=== PATIENT | female | born 1955 | race Caucasian/White ===

== ENCOUNTER → 2017-04-18 12:45 | Outpatient (CLI) | payer MEDICAID, SELFPAY ==
--- NOTE | 2017-04-18 13:00 | SP.MBSS_ITS ---
PRIMARY / SECONDARY DIAGNOSIS: dysphagia (R13.10) REFERRING PHYSICIAN: Dr. Camilla Singh MD CURRENT DIET: regular textures, thin liquids DENTITION: WFL MENTAL STATUS: WNL RESPIRATORY STATUS: O2 via room air PREVIOUS MODIFIED BARIUM SWALLOW STUDY: none REASON FOR REFERRAL: Patient is a 61 year old female referred for a modified barium swallow (MBS) study to objectively assess the Patients oropharyngeal swallow function under fluoroscopy secondary to reported persistent throat clearing with suspected association with PO intake tolerance. Patient denies uptake in throat clearing during PO intake, denies any recent history of pneumonia, denies any overt signs and symptoms of aspiration. MEDICAL HISTORY: Diabetes mellitus, hypertension, hypercholesteremia, prior hysterectomy. STUDY FINDINGS: Patient participated in a Modified Barium Swallow (MBS) study on 04/18/2017. Dr. Hanson was the radiologist present for this evaluation. This study was recorded in the lateral view and images were sent to PACs for storage. The following consistencies were presented to this patient for analysis of oropharyngeal swallow function: thin liquids, pudding, and a regular textured, Hiral Doone cookie. Results of the MBS are as follows: PENETRATION / ASPIRATION SCALE (APONTE): 1 = does not enter airway 2 = enters airway/above vocal folds/ejected 3 = enters airway/above vocal folds/not ejected 4 = enters airway/contacts vocal folds/ejected 5 = enters airway/contacts vocal folds/not ejected 6 = enters airway/below vocal folds/ejected 7 = enters airway/below vocal folds/not ejected despite effort 8 = enters airway/below vocal folds/no effort PENETRATION / ASPIRATION SCALE (SCORE): Thin liquids via cup (single sip): 1 Thin liquids via cup (single sip): 1 Thin liquids via cup (single sip): 1 Thin liquids via cup (sequential swallows): 1 Thin liquids via straw (single sip): 1 Thin liquids via straw (sequential swallows): 1 Pudding via spoon: 1 Regular textured cookie: 1 Thin liquids via straw (sequential swallows): 1 IMPRESSION: DIAGNOSIS: swallow function grossly within functional limits ORAL PHASE CHARACTERIZED BY: LABIAL SEAL: no labial escape TONGUE CONTROL DURING BOLUS MANIPULATION: cohesive bolus between tongue to palatal seal BOLUS PREPARATION / MASTICATION: timely and efficient chewing and mashing BOLUS TRANSPORT / LINGUAL MOTION: brisk tongue motion ORAL RESIDUE: intermittent trace residue lining oral structures PHARYNGEAL PHASE CHARACTERIZED BY: INITIATION OF PHARYNGEAL SWALLOW: bolus head in valleculae at first hyoid excursion SOFT PALATE ELEVATION: no bolus between soft palate and pharyngeal wall LARYNGEAL ELEVATION: complete superior movement of thyroid cartilage with complete approximation of arytenoids cartilage to epiglottic petiole ANTERIOR HYOID EXCURSION: complete anterior movement EPIGLOTTIC MOVEMENT: complete epiglottic inversion LARYNGEAL VESTIBULE CLOSURE AT HEIGHT OF SWALLOW: complete laryngeal vestibule closure with no air/contrast in laryngeal vestibule PHARYNGEAL STRIPPING WAVE: pharyngeal stripping wave present / complete PHARYNGOESOPHAGEAL SEGMENT OPENING: complete distension and complete duration with no obstruction of flow TONGUE BASE RETRACTION: no contrast between tongue base and posterior pharyngeal wall PHARYNGEAL RESIDUE: intermittent trace residue within or on pharyngeal structures ESOPHAGEAL PHASE CHARACTERIZED BY: ESOPHAGEAL BOLUS CLEARANCE IN THE UPRIGHT POSITION: complete clearance; esophageal coating DIET TEXTURE RECOMMENDATIONS: Will recommend a regular textured, thin liquid diet. INTERPRETATION OF RESULTS: The Patient presents with mastication and deglutition abilities found to be grossly within normal limits. No aspiration appreciated throughout consistencies trialed. RECOMMENDATIONS: Provided brief overview of signs and symptoms of aspiration, with recommendations for the Patient to further discuss symptoms with PCP. No further skilled speech-language services warranted at this time targeting dysphagia. ADDITIONAL COMMENTS/RECOMMENDATIONS: Results and recommendations were discussed with the Patient immediately following MBS completion, with the Patient verbalizing understanding and agreement with all recommendations and education provided. IMAGE COUNT: [id number] G-CODES: SWALLOWING [id number] Current Status: SWALLOWING G8997 Goal Status: SWALLOWING G8998 Discharge Status:
--- NOTE | 2017-04-18 13:15 | RAD_ITS ---
STUDY: SWALLOWING STUDY REASON FOR EXAM: Female, 61 years old. Dysphagia. TECHNIQUE: The examination was performed with Speech Pathology in attendance. Under fluoroscopic observation, the patient ingested thin barium, thick barium, barium pudding, and barium coated cracker. FLUOROSCOPY TIME: 0:57 minutes/seconds. 837 spot images were obtained. RADIOLOGIST INVOLVEMENT: Radiologist was present and providing direct supervision. COMPARISON: None. FINDINGS: The following was observed during swallowing of the various mixtures of barium: Thin Barium: There was no evidence of aspiration or laryngeal penetration. Barium Pudding: There was no evidence of aspiration or laryngeal penetration. Barium Coated Cracker: There was no evidence of aspiration or laryngeal penetration. RAD/Swallowing Function w/Video IMPRESSION: Normal tailored barium swallow study. No evidence of increased risk for aspiration. The swallow study findings were discussed with the patient by the speech pathologist at the conclusion of the examination. Please see speech pathology report for more information and recommendations. Electronically Signed: Rigoberto Hanson MD at 14:30 EST Tel [phone], Service support ,
== END ==
PROVIDERS: Family Provider Family Medicine Geriatric Medicine; PCP Family Medicine Geriatric Medicine; Visit Provider Family Medicine Geriatric Medicine
DX: R13.10 Dysphagia, unspecified (principal)
CPT/HCPCS: 74230; 92611

== ENCOUNTER → 2017-08-16 08:52 | Outpatient (CLI) | payer MEDICAID, SELFPAY ==
[2017-08-16 17:45] LABS: Absolute Lymphocyte Count 2.46 X10^3/ul (0.83-4.51); Absolute Neutrophil Count 3.4 X10^3/uL (2.0-7.7); Basophil# 0.02 X10^3/uL; Basophil% 0.3 % (0-1); Eosinophil# 0.17 X10^3/uL; Eosinophils% 2.6 % (0-5); Hematocrit 41.6 % (37-47); Hemoglobin 13.9 g/dl (12.0-15.0); Lymphocyte # 2.46 X10^3/ul (4.0); Lymphocyte % 37.4 % (19-41); Mean Corp Hgb Conc 33.4 g/gl (32-36); Mean Corpuscular Hgb 31.7 pg (27.0-32.0); Mean Corpuscular Volume 94.8 fL (81-99); Mean Platelet Vol. 10.1 fl (6.2-12.0); Monocyte# 0.53 X10^3/uL; Monocyte% 8.1 % (0-10); Neutrophil # 3.39 X10^3/uL (2.7-7.7); Neutrophil % 51.4 % (47-70); Platelet Count 239 K/mm3 (150-450); RBC Distribution Width CV 12.6 % (11.6-14.6); RBC Distribution Width SD 42.4 fl (35.1-43.9); Red Blood Count 4.39 M/mm3 (4.2-5.4); White Blood Count 6.6 K/mm3 (4.4-11.0)
[2017-08-16 17:51] LABS: POSITIVE COUNT NO; POSITIVE DIFFERENTIAL NO; POSITIVE MORPHOLOGY NO
[2017-08-16 18:05] LABS: ALB/GLOB Ratio 0.9 RATIO (0.9-2.4); AST(SGOT) 17 U/L (15-37); Alanine Aminotransfer ALT/SGPT 29 U/L (13-56); Albumin, Serum 3.6 g/dL (3.2-5.0); Alkaline Phosphatase 81 U/L (45-117); Anion Gap 7 (5-15); BUN 17 mg/dL (7-18); BUN/Creat Ratio 18.4 RATIO (10-20); Calcium,Total 8.6 mg/dL (8.5-10.1); Chloride 107 mmol/L (98-107); Creatinine, Serum 0.92 mg/dL (0.55-1.02); EST Glomerular Filtration Rate 65 mL/min (>60); Est Glom Filt Rate - Afr Amer 79 mL/min (>60); Globulin 3.8 g/dL (2.2-4.2); Glucose 131 mg/dL (74-106); Potassium 4.2 mmol/L (3.5-5.1); Protein, Total 7.4 g/dL (6.4-8.2); Sodium Level 141 mmol/L (136-145); Thyroid Stim Hormone (TSH) 2.34 uIU/mL (0.358-3.74)
[2017-08-17 08:43] LABS: Vitamin D,25 Hydroxy 80.2 ng/mL (29.95-100.01)
[2017-08-18 08:01] LABS: Hep C Antibodies 0.1 s/co ratio (0.0-0.9)
== END ==
PROVIDERS: Family Provider Family Medicine Geriatric Medicine; PCP Family Medicine Geriatric Medicine; Visit Provider Family Medicine Geriatric Medicine
DX: E11.9 Type 2 diabetes mellitus without complications (principal); E55.9 Vitamin D deficiency, unspecified; I10 Essential (primary) hypertension; Z13.89 Encounter for screening for other disorder
CPT/HCPCS: 36415; 80053; 82306; 84443; 85025; 86803

== ENCOUNTER → 2018-02-14 13:40 | Outpatient (CLI) | payer MEDICAID, SELFPAY ==
[2018-02-14 17:07] LABS: Absolute Lymphocyte Count 2.55 X10^3/ul (0.83-4.51); Absolute Neutrophil Count 3.4 X10^3/uL (2.0-7.7); Basophil# 0.02 X10^3/uL; Basophil% 0.3 % (0-1); Hemoglobin 12.9 g/dl (12.0-15.0); Lymphocyte # 2.55 X10^3/ul (4.0); Lymphocyte % 38.3 % (19-41); Mean Corp Hgb Conc 33.1 g/gl (32-36); Mean Corpuscular Hgb 30.9 pg (27.0-32.0); Mean Corpuscular Volume 93.5 fL (81-99); Mean Platelet Vol. 10.2 fl (6.2-12.0); Monocyte# 0.46 X10^3/uL; Monocyte% 6.9 % (0-10); Neutrophil # 3.41 X10^3/uL (2.7-7.7); Neutrophil % 51.3 % (47-70); Platelet Count 225 K/mm3 (150-450); RBC Distribution Width CV 12.2 % (11.6-14.6); RBC Distribution Width SD 40.9 fl (35.1-43.9); Red Blood Count 4.17 M/mm3 (4.2-5.4); White Blood Count 6.7 K/mm3 (4.4-11.0)
[2018-02-14 17:20] LABS: Vitamin D,25 Hydroxy 51.6 ng/mL (29.95-100.01)
[2018-02-14 17:21] LABS: POSITIVE COUNT NO; POSITIVE DIFFERENTIAL NO; POSITIVE MORPHOLOGY NO
[2018-02-14 17:35] LABS: ALB/GLOB Ratio 1.1 RATIO (0.9-2.4); AST(SGOT) 18 U/L (15-37); Alanine Aminotransfer ALT/SGPT 30 U/L (13-56); Albumin, Serum 3.7 g/dL (3.2-5.0); Alkaline Phosphatase 96 U/L (45-117); Anion Gap 10 (5-15); BUN 19 mg/dL (7-18); Calcium,Total 8.8 mg/dL (8.5-10.1); Chloride 108 mmol/L (98-107); EST Glomerular Filtration Rate 67 mL/min (>60); Est Glom Filt Rate - Afr Amer 81 mL/min (>60); Globulin 3.4 g/dL (2.2-4.2); Glucose 168 mg/dL (74-106); Potassium 3.9 mmol/L (3.5-5.1); Protein, Total 7.1 g/dL (6.4-8.2); Sodium Level 140 mmol/L (136-145); Thyroid Stim Hormone (TSH) 2.19 uIU/mL (0.358-3.74)
== END ==
PROVIDERS: Family Provider Family Medicine Geriatric Medicine; PCP Family Medicine Geriatric Medicine; Visit Provider Family Medicine Geriatric Medicine
DX: E11.9 Type 2 diabetes mellitus without complications (principal); E55.9 Vitamin D deficiency, unspecified; I10 Essential (primary) hypertension
CPT/HCPCS: 36415; 80053; 82306; 84443; 85025

== ENCOUNTER → 2018-03-05 15:31 | Outpatient (CLI) | payer MEDICAID, SELFPAY ==
--- NOTE | 2018-03-05 15:37 | RAD_ITS ---
STUDY: X-RAY - LUMBAR SPINE REASON FOR EXAM: Female, 62 years old. Back pain TECHNIQUE: 3 view(s) of the lumbar spine were obtained. COMPARISON: None FINDINGS: Normal lumbar lordosis. There is no substantial scoliosis. There is a normal alignment of the vertebrae. Normal vertebral bodies and endplates. There is mild narrowing of the disc space at L5-S1. There is no demonstrated fracture. There is bilateral facet hypertrophy at L4-5 and L5-S1. The soft tissue structures are unremarkable. RAD/Lumbar Spine 2 or 3 Views IMPRESSION: There are NO fractures or malalignments. There are mild degenerative changes as described. Electronically Signed: Brien Jeffers MD at 7:42 EST , Service support ,
--- NOTE | 2018-03-05 15:37 | RAD_ITS ---
STUDY: X-RAY - ABDOMEN/PELVIS REASON FOR EXAM: Female, 62 years old. Low back and abdominal pain TECHNIQUE: 3 AP views COMPARISON: None. FINDINGS: Normal visualized lung bases. There is an unremarkable bowel gas pattern. There is no demonstrated free abdominal air. The visualized liver, spleen and kidneys are grossly normal in size and morphology. Normal soft tissue structures. Normal visualized osseous structures. RAD/Abd Inc Decub and/or Erect IMPRESSION: No acute findings Electronically Signed: Miguel Costello MD at 15:15 EST , Service support ,
[2018-03-05 17:20] LABS: Absolute Lymphocyte Count 2.43 X10^3/ul (0.83-4.51); Absolute Neutrophil Count 5.6 X10^3/uL (2.0-7.7); Basophil# 0.02 X10^3/uL; Basophil% 0.2 % (0-1); Eosinophil# 0.11 X10^3/uL; Eosinophils% 1.2 % (0-5); Hematocrit 40.6 % (37-47); Hemoglobin 13.7 g/dl (12.0-15.0); Lymphocyte # 2.43 X10^3/ul (4.0); Lymphocyte % 27.6 % (19-41); Mean Corp Hgb Conc 33.7 g/gl (32-36); Mean Corpuscular Hgb 31.5 pg (27.0-32.0); Mean Corpuscular Volume 93.3 fL (81-99); Monocyte# 0.63 X10^3/uL; Monocyte% 7.1 % (0-10); Neutrophil # 5.61 X10^3/uL (2.7-7.7); Neutrophil % 63.7 % (47-70); Platelet Count 241 K/mm3 (150-450); RBC Distribution Width CV 12.4 % (11.6-14.6); RBC Distribution Width SD 41.8 fl (35.1-43.9); Red Blood Count 4.35 M/mm3 (4.2-5.4); White Blood Count 8.8 K/mm3 (4.4-11.0)
[2018-03-05 17:23] LABS: POSITIVE COUNT NO; POSITIVE DIFFERENTIAL NO; POSITIVE MORPHOLOGY NO
[2018-03-05 17:31] LABS: Anion Gap 8 (5-15); BUN 23 mg/dL (7-18); BUN/Creat Ratio 21.5 RATIO (10-20); Calcium,Total 8.6 mg/dL (8.5-10.1); Chloride 100 mmol/L (98-107); Creatinine, Serum 1.07 mg/dL (0.55-1.02); EST Glomerular Filtration Rate 55 mL/min (>60); Est Glom Filt Rate - Afr Amer 66 mL/min (>60); Glucose 193 mg/dL (74-106); Potassium 3.9 mmol/L (3.5-5.1); Sodium Level 135 mmol/L (136-145)
== END ==
PROVIDERS: Family Provider Family Medicine Geriatric Medicine; PCP Family Medicine Geriatric Medicine; Referring Provider Family Medicine Geriatric Medicine; Visit Provider Family Medicine Geriatric Medicine
DX: M54.5 Low back pain (principal); R10.9 Unspecified abdominal pain
CPT/HCPCS: 36415; 72100; 74019; 80048; 85025

== ENCOUNTER → 2018-05-15 14:52 | Outpatient (CLI) | payer MEDICAID, SELFPAY ==
[2018-05-15 15:34] LABS: Absolute Lymphocyte Count 2.79 X10^3/ul (0.83-4.51); Basophil# 0.03 X10^3/uL; Basophil% 0.4 % (0-1); Eosinophil# 0.14 X10^3/uL; Eosinophils% 1.9 % (0-5); Hematocrit 38.9 % (37-47); Lymphocyte # 2.79 X10^3/ul (4.0); Mean Corp Hgb Conc 33.4 g/gl (32-36); Mean Corpuscular Hgb 31.4 pg (27.0-32.0); Mean Platelet Vol. 9.9 fl (6.2-12.0); Monocyte# 0.58 X10^3/uL; Monocyte% 7.7 % (0-10); Neutrophil # 3.99 X10^3/uL (2.7-7.7); Neutrophil % 52.9 % (47-70); Platelet Count 271 K/mm3 (150-450); RBC Distribution Width CV 13.2 % (11.6-14.6); Red Blood Count 4.14 M/mm3 (4.2-5.4); White Blood Count 7.5 K/mm3 (4.4-11.0)
[2018-05-15 15:47] LABS: POSITIVE COUNT NO; POSITIVE DIFFERENTIAL NO; POSITIVE MORPHOLOGY NO
[2018-05-15 16:10] LABS: Vitamin D,25 Hydroxy 98.3 ng/mL (29.95-100.01)
[2018-05-15 16:13] LABS: AST(SGOT) 16 U/L (15-37); Alanine Aminotransfer ALT/SGPT 29 U/L (13-56); Albumin, Serum 3.7 g/dL (3.2-5.0); Alkaline Phosphatase 73 U/L (45-117); Anion Gap 10 (5-15); BUN 23 mg/dL (7-18); BUN/Creat Ratio 19.5 RATIO (10-20); Calcium,Total 8.8 mg/dL (8.5-10.1); Chloride 102 mmol/L (98-107); Creatinine, Serum 1.18 mg/dL (0.55-1.02); EST Glomerular Filtration Rate 49 mL/min (>60); Est Glom Filt Rate - Afr Amer 59 mL/min (>60); Globulin 3.7 g/dL (2.2-4.2); Glucose 217 mg/dL (74-106); Potassium 3.4 mmol/L (3.5-5.1); Protein, Total 7.4 g/dL (6.4-8.2); Sodium Level 141 mmol/L (136-145); Thyroid Stim Hormone (TSH) 1.97 uIU/mL (0.358-3.74)
== END ==
PROVIDERS: Family Provider Family Medicine Geriatric Medicine; PCP Family Medicine Geriatric Medicine; Visit Provider Family Medicine Geriatric Medicine
DX: I10 Essential (primary) hypertension (principal); E11.9 Type 2 diabetes mellitus without complications; E55.9 Vitamin D deficiency, unspecified
CPT/HCPCS: 36415; 80053; 82306; 84443; 85025

== ENCOUNTER → 2018-08-19 | Outpatient (CLI) | payer MEDICAID, SELFPAY ==
[2018-08-19 15:39] LABS: Absolute Lymphocyte Count 1.77 X10^3/ul (0.83-4.51); Absolute Neutrophil Count 3.2 X10^3/uL (2.0-7.7); Basophil# 0.01 X10^3/uL; Basophil% 0.2 % (0-1); Eosinophil# 0.08 X10^3/uL; Eosinophils% 1.4 % (0-5); Hematocrit 37.6 % (37-47); Hemoglobin 12.3 g/dl (12.0-15.0); Lymphocyte # 1.77 X10^3/ul (4.0); Lymphocyte % 31.7 % (19-41); Mean Corp Hgb Conc 32.7 g/gl (32-36); Mean Corpuscular Hgb 31.3 pg (27.0-32.0); Mean Corpuscular Volume 95.7 fL (81-99); Mean Platelet Vol. 10.1 fl (6.2-12.0); Monocyte# 0.54 X10^3/uL; Monocyte% 9.7 % (0-10); Neutrophil # 3.18 X10^3/uL (2.7-7.7); Neutrophil % 56.8 % (47-70); Platelet Count 254 K/mm3 (150-450); RBC Distribution Width CV 12.6 % (11.6-14.6); RBC Distribution Width SD 42.9 fl (35.1-43.9); Red Blood Count 3.93 M/mm3 (4.2-5.4); White Blood Count 5.6 K/mm3 (4.4-11.0)
[2018-08-19 15:40] LABS: POSITIVE COUNT NO; POSITIVE DIFFERENTIAL NO; POSITIVE MORPHOLOGY NO
[2018-08-19 15:47] LABS: ALB/GLOB Ratio 1.1 RATIO (0.9-2.4); AST(SGOT) 15 U/L (15-37); Alanine Aminotransfer ALT/SGPT 22 U/L (13-56); Albumin, Serum 3.7 g/dL (3.2-5.0); Alkaline Phosphatase 55 U/L (45-117); Anion Gap 10 (5-15); BUN 29 mg/dL (7-18); BUN/Creat Ratio 27.9 RATIO (10-20); Calcium,Total 8.9 mg/dL (8.5-10.1); Chloride 108 mmol/L (98-107); Creatinine, Serum 1.04 mg/dL (0.55-1.02); EST Glomerular Filtration Rate 57 mL/min (>60); Est Glom Filt Rate - Afr Amer 69 mL/min (>60); Globulin 3.5 g/dL (2.2-4.2); Glucose 94 mg/dL (74-106); Potassium 3.8 mmol/L (3.5-5.1); Protein, Total 7.2 g/dL (6.4-8.2); Sodium Level 144 mmol/L (136-145); Thyroid Stim Hormone (TSH) 2.42 uIU/mL (0.358-3.74)
[2018-08-19 15:48] LABS: Vitamin D,25 Hydroxy 73.2 ng/mL (29.95-100.01)
== END | disposition home or self-care (01) ==
LOC: POLAB3 12:08
PROVIDERS: Family Provider Family Medicine Geriatric Medicine; PCP Family Medicine Geriatric Medicine; Visit Provider Family Medicine Geriatric Medicine
DX: E11.9 Type 2 diabetes mellitus without complications (principal); E55.9 Vitamin D deficiency, unspecified; I10 Essential (primary) hypertension
CPT/HCPCS: 36415; 80053; 82306; 84443; 85025

== ENCOUNTER → 2018-09-04 | Outpatient (CLI) | payer MEDICAID, SELFPAY ==
--- NOTE | 2018-09-04 12:52 | BI_ITS ---
MAMMOGRAPHY - BILATERAL SCREENING REASON FOR EXAM: Female, 62 years old. Routine annual screening examination. PERTINENT HISTORY: Aunt with breast cancer. Prior left stereotactic breast biopsy. TECHNIQUE: Digital bilateral breast roland (3D mammographic acquisition) in the CC and MLO projections. 2-D mediolateral oblique (MLO) and craniocaudad (CC) views of both breasts were obtained. CAD: Full Field Digital Mammography with Computer Added Detection was performed. COMPARISON: Comparison is made with prior study dated August 28, 2016 and August 26, 2015. FINDINGS: Breast Composition: The breasts are heterogeneously dense, which may obscure small masses. There are no dominant masses or suspicious calcifications. A tissue clip marker is seen in the deep upper lateral portion of the left breast. No other significant abnormalities are identified. There has been no significant change since the prior study. BI/SCREEN MAMM (CAD) W/ROLAND BILAT IMPRESSION: Stable bilateral screening mammogram. Yearly follow-up mammogram recommended. (A) ASSESSMENT CATEGORY: BIRADS Category 2: Benign. A letter regarding these results will be sent to the patient by the facility within 30 days. Approximately 10% of breast cancers are not detected by mammography. A normal mammogram should not delay biopsy of a clinically suspicious abnormality. [id number] Electronically Signed: Rigoberto Hanson, at 14:35 EDT , Service support ,
== END | disposition home or self-care (01) ==
LOC: OPBI 12:49
PROVIDERS: Family Provider Family Medicine Geriatric Medicine; PCP Family Medicine Geriatric Medicine; Referring Provider Family Medicine Geriatric Medicine; Visit Provider Family Medicine Geriatric Medicine
DX: Z12.31 Encounter for screening mammogram for malignant neoplasm of breast (principal)
CPT/HCPCS: 77063; 77067

== ENCOUNTER → 2019-02-17 16:01 | Outpatient (CLI) | payer MEDICARE, MEDICAID, SELFPAY ==
[2018-11-04 13:01] VITALS: BMI 25.2
[2019-02-17 17:31] LABS: Absolute Lymphocyte Count 2.37 X10^3/uL (0.83-4.51); Absolute Neutrophil Count 2.3 X10^3/uL (2.0-7.7); Basophil# 0.02 X10^3/uL; Basophil% 0.4 % (0-1); Eosinophil# 0.11 X10^3/uL; Eosinophils% 2.1 % (0-5); Hematocrit 36.5 % (37-47); Hemoglobin 11.9 g/dL (12.0-15.0); Lymphocyte # 2.37 X10^3/ul (4.0); Lymphocyte % 45.2 % (19-41); Mean Corp Hgb Conc 32.6 g/dL (32-36); Mean Corpuscular Hgb 31.4 pg (27.0-32.0); Mean Corpuscular Volume 96.3 fL (81-99); Mean Platelet Vol. 10.3 fl (6.2-12.0); Monocyte# 0.48 X10^3/uL; Monocyte% 9.2 % (0-10); NRBC Flagged by Analyzer 0 % (0-5); Neutrophil # 2.25 X10^3/uL (2.7-7.7); Neutrophil % 42.9 % (47-70); Platelet Count 228 K/mm3 (150-450); RBC Distribution Width CV 12.6 % (11.6-14.6); RBC Distribution Width SD 44.7 fl (35.1-43.9); Red Blood Count 3.79 M/mm3 (4.2-5.4); White Blood Count 5.2 K/mm3 (4.4-11.0)
[2019-02-17 18:06] LABS: Vitamin D,25 Hydroxy 67.5 ng/mL (29.95-100.01)
[2019-02-17 18:14] LABS: AST(SGOT) 16 U/L (15-37); Alanine Aminotransfer ALT/SGPT 27 U/L (13-56); Albumin, Serum 3.7 g/dL (3.2-5.0); Alkaline Phosphatase 68 U/L (45-117); Anion Gap 4 (5-15); BUN 18 mg/dL (7-18); BUN/Creat Ratio 15.7 RATIO (10-20); Calcium,Total 8.7 mg/dL (8.5-10.1); Chloride 106 mmol/L (98-107); Creatinine, Serum 1.15 mg/dL (0.55-1.02); EST Glomerular Filtration Rate 50 mL/min (>60); Est Glom Filt Rate - Afr Amer 61 mL/min (>60); Globulin 3.6 g/dL (2.2-4.2); Glucose 98 mg/dL (74-106); Potassium 3.8 mmol/L (3.5-5.1); Protein, Total 7.3 g/dL (6.4-8.2); Sodium Level 140 mmol/L (136-145); Thyroid Stim Hormone (TSH) 3.12 uIU/mL (0.358-3.74)
== END ==
PROVIDERS: Family Provider Family Medicine Geriatric Medicine; PCP Family Medicine Geriatric Medicine; Visit Provider Family Medicine Geriatric Medicine
DX: E11.9 Type 2 diabetes mellitus without complications (principal); E55.9 Vitamin D deficiency, unspecified; I10 Essential (primary) hypertension
CPT/HCPCS: 36415; 80053; 82306; 84443; 85025

== ENCOUNTER → 2019-03-03 12:40 | Outpatient (CLI) | payer MEDICARE, MEDICAID, SELFPAY ==
[2018-11-04 13:01] VITALS: BMI 25.2
--- NOTE | 2019-03-03 12:54 | ART_ITS ---
Reason For Study: Peripheral arterial occlusive disease Procedure A bilateral lower extremity continuous wave Doppler with analog waveform analysis and ankle brachial indexes. Left Segmental Pressures Left brachial= 124mmHg. Left posterior tibial artery = 144mmHg. Left dorsalis pedis artery = 155mmHg. The left dorsalis pedis waveforms are triphasic. The left posterior tibial artery waveforms are triphasic. Right Segmental Pressures Right brachial= 126mmHg. Right posterior tibial artery = 138mmHg. Right dorsalis pedis artery = 142mmHg. The right dorsalis pedis waveforms are triphasic. The right posterior tibial artery waveforms are triphasic. Indices The right ankle brachial index by the dorsalis pedis is 1.13. The right ankle brachial index by the posterior tibial artery is 1.10. The left ankle brachial index by the dorsalis pedis is 1.23. The left ankle brachial index by the posterior tibial artery is 1.14. Interpretation Summary Triphasic Doppler waveforms are noted at ankle level bilaterally. Resting ankle-brachial indices are normal bilaterally. There is no evidence of significant arterial occlusive disease in the lower extremities bilaterally. Ordering Physician: Marquis Singh Referring Physician: Marquis Singh Chi Performed By: Lenka Islas RVT
== END ==
PROVIDERS: Family Provider Family Medicine Geriatric Medicine; PCP Family Medicine Geriatric Medicine; Referring Provider Family Medicine Geriatric Medicine; Visit Provider Family Medicine Geriatric Medicine
DX: I73.9 Peripheral vascular disease, unspecified (principal)
CPT/HCPCS: 93922

== ENCOUNTER → 2019-08-21 | Outpatient (CLI) | payer MEDICARE, MEDICAID, SELFPAY ==
[2018-11-04 13:01] VITALS: BMI 25.2
[2019-08-21 16:09] LABS: Absolute Lymphocyte Count 1.92 X10^3/uL (0.83-4.51); Absolute Neutrophil Count 2.5 X10^3/uL (2.0-7.7); Basophil# 0.02 X10^3/uL; Basophil% 0.4 % (0-1); Eosinophil# 0.13 X10^3/uL; Eosinophils% 2.5 % (0-5); Hematocrit 36.2 % (37-47); Hemoglobin 11.9 g/dL (12.0-15.0); Lymphocyte # 1.92 X10^3/ul (4.0); Lymphocyte % 37.5 % (19-41); Mean Corp Hgb Conc 32.9 g/dL (32-36); Mean Corpuscular Hgb 31.7 pg (27.0-32.0); Mean Corpuscular Volume 96.5 fL (81-99); Mean Platelet Vol. 10.1 fl (6.2-12.0); Monocyte# 0.56 X10^3/uL; Monocyte% 10.9 % (0-10); NRBC Flagged by Analyzer 0 % (0-5); Neutrophil # 2.48 X10^3/uL (2.7-7.7); Neutrophil % 48.5 % (47-70); Platelet Count 250 K/mm3 (150-450); RBC Distribution Width CV 12.7 % (11.6-14.6); RBC Distribution Width SD 44.8 fl (35.1-43.9); Red Blood Count 3.75 M/mm3 (4.2-5.4); White Blood Count 5.1 K/mm3 (4.4-11.0)
[2019-08-21 16:48] LABS: Vitamin D,25 Hydroxy 106.7 ng/mL
[2019-08-21 16:54] LABS: AST(SGOT) 16 U/L (15-37); Alanine Aminotransfer ALT/SGPT 21 U/L (13-56); Albumin, Serum 3.5 g/dL (3.2-5.0); Alkaline Phosphatase 74 U/L (45-117); Anion Gap 7 (5-15); BUN 21 mg/dL (7-18); BUN/Creat Ratio 19.8 RATIO (10-20); Calcium,Total 8.6 mg/dL (8.5-10.1); Chloride 106 mmol/L (98-107); Creatinine, Serum 1.06 mg/dL (0.55-1.02); EST Glomerular Filtration Rate 55 mL/min (>60); Est Glom Filt Rate - Afr Amer 67 mL/min (>60); Globulin 3.5 g/dL (2.2-4.2); Glucose 98 mg/dL (74-106); Potassium 3.7 mmol/L (3.5-5.1); Sodium Level 142 mmol/L (136-145); Thyroid Stim Hormone (TSH) 3.11 uIU/mL (0.358-3.74)
== END | disposition home or self-care (01) ==
LOC: POLAB3 14:15
PROVIDERS: PCP Family Medicine Geriatric Medicine; Visit Provider Family Medicine Geriatric Medicine
DX: E11.9 Type 2 diabetes mellitus without complications (principal); E55.9 Vitamin D deficiency, unspecified; I10 Essential (primary) hypertension
CPT/HCPCS: 36415; 80053; 82306; 84443; 85025

== ENCOUNTER → 2019-08-28 | Outpatient (CLI) | payer MEDICARE, MEDICAID, SELFPAY ==
[2018-11-04 13:01] VITALS: BMI 25.2
--- NOTE | 2019-08-28 14:16 | BD_ITS ---
STUDY: DUAL ENERGY X-RAY ABSORPTIOMETRY / DXA REASON FOR EXAM: Female, 63 years old. Age of surgical noel total hysterectomy age 48. Pat is 169.5# and 66.5 and quot; a loss 1.5 and quot; per pat. Type II diabetic who takes metformin. Exercises little to moderately. TECHNIQUE: Bone Mineral Density (BMD) measurements of lumbar spine and bilateral hips were obtained. COMPARISON: None. FINDINGS: Lumbar Spine (L1-L4): g/cm2 (1.229) / T-score (0.2) / Z-score (1.8) Findings are suggestive of normal bone density with a low fracture risk. Left Femur Total: g/cm2 (1.027) / T-score (0.2) / Z-score (1.4) Left Femoral Neck: g/cm2 (0.967) / T-score (-0.5) / Z-score (1.0) Right Femur Total: g/cm2 (0.984) / T-score (-0.2) / Z-score (1.0) Right Femoral Neck: g/cm2 (0.921) / T-score (-0.8) / Z-score (0.6) BD/Dexa Bone Density Study IMPRESSION: The patient is considered normal as outlined below according to World Owen Organization (WHO) criteria with a low fracture risk. Reference Information: The T-score is the number of standard deviations above or below the standard which is normal for young adults at their peak bone mineral density. The World Health Organization (WHO) interprets the T-scores as follows: Above -1 Normal bone density Between -1 and -2.5 Osteopenia Equal to / or below -2.5 Osteoporosis As a practical clinical guideline, osteopenia may be graded as follows: Mild -1 through -1.5 Moderate -1.6 through -2.0 Severe -2.1 through -2.4 The Z-score is the number of standard deviations above or below age-matched controls. A Z-score of less than -1.5 would be considered abnormal. References: 1. NIH Osteoporosis and Related Bone Diseases http://www.osteo.org 2. International Society for Clinical Densitometry http://www.iscd.org 3. National Osteoporosis Foundation http://www.nof.org Electronically Signed: Rigoberto Hanson, at 15:40 EDT , Service support ,
== END | disposition home or self-care (01) ==
LOC: OPBD 14:07
PROVIDERS: PCP Family Medicine Geriatric Medicine; Referring Provider Family Medicine Geriatric Medicine; Visit Provider Family Medicine Geriatric Medicine
DX: Z78.0 Asymptomatic menopausal state (principal)
CPT/HCPCS: 77080

== ENCOUNTER → 2020-03-03 14:35 | Outpatient (CLI) | payer MEDICARE, MEDICAID, SELFPAY ==
[2018-11-04 13:01] VITALS: BMI 25.2
[2020-03-03 16:38] LABS: Absolute Lymphocyte Count 2.12 X10^3/uL (0.83-4.51); Basophil# 0.04 X10^3/uL; Basophil% 0.7 % (0-1); Eosinophil# 0.16 X10^3/uL; Eosinophils% 2.7 % (0-5); Hematocrit 37.2 % (37-47); Lymphocyte # 2.12 X10^3/ul (4.0); Lymphocyte % 35.7 % (19-41); Mean Corp Hgb Conc 32.3 g/dL (32-36); Mean Corpuscular Hgb 30.8 pg (27.0-32.0); Mean Corpuscular Volume 95.6 fL (81-99); Mean Platelet Vol. 10.2 fl (6.2-12.0); Monocyte# 0.61 X10^3/uL; Monocyte% 10.3 % (0-10); NRBC Flagged by Analyzer 0 % (0-5); Neutrophil % 50.4 % (47-70); Platelet Count 267 K/mm3 (150-450); RBC Distribution Width CV 13.2 % (11.6-14.6); RBC Distribution Width SD 46.7 fl (35.1-43.9); Red Blood Count 3.89 M/mm3 (4.2-5.4); White Blood Count 5.9 K/mm3 (4.4-11.0)
[2020-03-03 17:08] LABS: ALB/GLOB Ratio 1.1 RATIO (0.9-2.4); AST(SGOT) 13 U/L (15-37); Alanine Aminotransfer ALT/SGPT 20 U/L (13-56); Albumin, Serum 3.7 g/dL (3.2-5.0); Alkaline Phosphatase 76 U/L (45-117); Anion Gap 7 (5-15); BUN 28 mg/dL (7-18); BUN/Creat Ratio 25.9 RATIO (10-20); Calcium,Total 8.9 mg/dL (8.5-10.1); Chloride 107 mmol/L (98-107); Creatinine, Serum 1.08 mg/dL (0.55-1.02); EST Glomerular Filtration Rate 54 mL/min (>60); Est Glom Filt Rate - Afr Amer 65 mL/min (>60); Globulin 3.5 g/dL (2.2-4.2); Glucose 99 mg/dL (74-106); Potassium 3.9 mmol/L (3.5-5.1); Protein, Total 7.2 g/dL (6.4-8.2); Sodium Level 140 mmol/L (136-145); Thyroid Stim Hormone (TSH) 1.95 uIU/mL (0.358-3.74)
[2020-03-03 17:15] LABS: Vitamin D,25 Hydroxy 74.5 ng/mL
== END ==
PROVIDERS: PCP Family Medicine Geriatric Medicine; Visit Provider Family Medicine Geriatric Medicine
DX: E11.9 Type 2 diabetes mellitus without complications (principal); E55.9 Vitamin D deficiency, unspecified; I10 Essential (primary) hypertension
CPT/HCPCS: 36415; 80053; 82306; 84443; 85025

== ENCOUNTER → 2020-03-25 14:44 | Outpatient (CLI) | payer MEDICARE, MEDICAID, SELFPAY ==
[2018-11-04 13:01] VITALS: BMI 25.2
[2020-03-25 17:15] LABS: Absolute Lymphocyte Count 1.89 X10^3/uL (0.83-4.51); Absolute Neutrophil Count 3.5 X10^3/uL (2.0-7.7); Basophil# 0.03 X10^3/uL; Basophil% 0.5 % (0-1); Eosinophil# 0.08 X10^3/uL; Eosinophils% 1.3 % (0-5); Hematocrit 36.2 % (37-47); Hemoglobin 11.3 g/dL (12.0-15.0); Lymphocyte # 1.89 X10^3/ul (4.0); Lymphocyte % 31.2 % (19-41); Mean Corp Hgb Conc 31.2 g/dL (32-36); Mean Corpuscular Hgb 30.5 pg (27.0-32.0); Mean Corpuscular Volume 97.6 fL (81-99); Mean Platelet Vol. 10.3 fl (6.2-12.0); Monocyte# 0.55 X10^3/uL; Monocyte% 9.1 % (0-10); NRBC Flagged by Analyzer 0 % (0-5); Neutrophil # 3.49 X10^3/uL (2.7-7.7); Neutrophil % 57.7 % (47-70); Platelet Count 241 K/mm3 (150-450); RBC Distribution Width CV 13.2 % (11.6-14.6); RBC Distribution Width SD 47.8 fl (35.1-43.9); Red Blood Count 3.71 M/mm3 (4.2-5.4); White Blood Count 6.1 K/mm3 (4.4-11.0)
[2020-03-25 17:49] LABS: Anion Gap 7 (5-15); BUN 22 mg/dL (7-18); BUN/Creat Ratio 19.1 RATIO (10-20); CPK Total, Creatine Kinase 121 U/L (26-192); Calcium,Total 9.4 mg/dL (8.5-10.1); Chloride 106 mmol/L (98-107); Creatinine, Serum 1.15 mg/dL (0.55-1.02); EST Glomerular Filtration Rate 50 mL/min (>60); Est Glom Filt Rate - Afr Amer 61 mL/min (>60); Glucose 107 mg/dL (74-106); Potassium 3.9 mmol/L (3.5-5.1); Sodium Level 141 mmol/L (136-145)
[2020-03-27 08:56] LABS: Myoglobin, Serum 44 ng/mL (25-58)
== END ==
PROVIDERS: PCP Family Medicine Geriatric Medicine; Visit Provider Family Medicine Geriatric Medicine
DX: R07.9 Chest pain, unspecified (principal); N39.0 Urinary tract infection, site not specified
CPT/HCPCS: 36415; 80048; 82550; 83874; 84484; 85025; 87086; 87088

== ENCOUNTER → 2020-05-17 11:06 | Outpatient (CLI) | payer MEDICARE, MEDICAID, SELFPAY ==
[2018-11-04 13:01] VITALS: BMI 25.2
--- NOTE | 2020-05-17 13:11 | NEURO_ITS ---
NCS and/or EMG Patient Report Ordering Doctor: Marquis Singh Chi DATE OF SERVICE: 05/17/20 Indication: Bilateral hand pain and swelling. Occasional numbness and tingling of the fingers. No neck pain or radicular symptoms. Evaluate for entrapment neuropathy. Findings: Nerve conduction studies were performed in the right and left upper extremities. The right median motor study recording the abductor pollicis brevis showed a borderline amplitude, prolonged distal latency and normal conduction velocity. The right ulnar motor study recording the abductor digiti minimi showed a normal amplitude, normal distal latency and normal conduction velocity. No conduction block or focal slowing was present across the elbow. The right median sensory response recording digit two showed a normal amplitude, prolonged latency and slowed conduction velocity. The right ulnar sensory response recording digit five showed a normal amplitude, latency and conduction velocity. The right radial sensory response recording over the extensor snuff box showed a normal amplitude, normal latency and borderline conduction velocity. The left median motor study recording the abductor pollicis brevis showed a normal amplitude, normal distal latency and normal conduction velocity. The left ulnar motor study recording the abductor digiti minimi showed a normal amplitude, normal distal latency and normal conduction velocity. No conduction block or focal slowing was present across the elbow. The left median sensory response recording digit two showed a normal amplitude, latency and conduction velocity. The left ulnar sensory response recording digit five showed a normal amplitude, normal latency and borderline conduction velocity. The left radial sensory response recording over the extensor snuff box showed a normal amplitude, latency and conduction velocity. As routine median motor and sensory studies have a false negative rate of 25%, additional internal comparison studies were done to assess for possible median neuropathy at the wrist. Right median-ulnar lumbrical / interosseous motor latencies showed a prolonged median latency compared to the ulnar. Left median- ulnar lumbrical / interosseous motor latencies showed a normal median latency compared to the ulnar. Needle EMG of the right upper extremity and cervical paraspinal muscles was performed. No denervation was seen in any muscle. All motor unit morphology, activation and recruitment patterns were normal. Needle EMG of the left abductor pollicis brevis was performed. No denervation was seen. Motor unit morphology, activation and recruitment patterns were normal. Impression: This is a mildly abnormal study. There is electrophysiologic evidence of median neuropathy across the right wrist. In addition, there is no electrophysiologic evidence of superimposed cervical radiculopathy, brachial plexopathy or other entrapment neuropathy in the right upper extremity. There is no electrophysiologic evidence of median neuropathy in the left upper extremity. Boby Jorgensen D.O.
--- NOTE | 2020-05-17 14:49 | VDUE_ITS ---
Reason For Study: Localized edema Right Proximal Right jugular vein is spontaneous, widely patent, phasic, with no intraluminal echogenicity noted. Right subclavian vein is spontaneous, widely patent, phasic, with no intraluminal echogenicity noted. Right Lower Arm Right radial vein is compressible. Right ulnar vein is compressible. Right Arm Right axillary vein is spontaneous, patent, phasic, competent, compressible and demonstrates augmentation. Right brachial vein is compressible. Right cephalic vein is compressible. Right basilic vein is compressible. Patient Safety Prelim [place]. VL/Venous Duplex US, Unilateral Interpretation Summary Deep veins of the right upper extremity are patent and compressible segmentally . There is no evidence of deep vein thrombosis. The superficial veins of the right upper extr emity, the basilic and cephalic veins, are patent and compressible. There is no evidence of right upper extremity superficial thrombophlebitis involving the veins imaged. Ordering Physician: Marquis Singh Referring Physician: Marquis Singh Chi Performed By: Lenka Islas RVT ?
--- NOTE | 2020-05-17 15:14 | RAD_ITS ---
STUDY: X-RAY - CERVICAL SPINE REASON FOR EXAM: Female, 64 years old. CERVICAL RADICULOPATHY TECHNIQUE: 3 view(s) of the cervical spine were obtained. COMPARISON: None FINDINGS: Normal anterior atlantoaxial articulation. Normal odontoid process. Normal cervical lordosis. Mild degree of a disc space narrowing at the C5-C6 level and mild anterior spondylosis. Normal visualized intervertebral neuroforamina. The soft tissue structures are unremarkable. RAD/Cerv Spine 2 or 3 Views IMPRESSION: Mild degree of disc space narrowing and spondylosis at the C5-C6 level. Electronically Signed: Rigoberto Hanson MD at 11:30 EDT , Service support ,
== END ==
PROVIDERS: PCP Family Medicine Geriatric Medicine; Referring Provider Family Medicine Geriatric Medicine; Visit Provider Family Medicine Geriatric Medicine
DX: R60.0 Localized edema (principal); R20.2 Paresthesia of skin; M54.12 Radiculopathy, cervical region
CPT/HCPCS: 72040; 93971; 95885; 95886; 95913

== ENCOUNTER → 2020-08-26 14:19 | Outpatient (CLI) | payer MEDICARE, SELFPAY ==
[2018-11-04 13:01] VITALS: BMI 25.2
[2020-08-26 14:43] LABS: Absolute Lymphocyte Count 1.45 X10^3/uL (0.83-4.51); Absolute Neutrophil Count 2.1 X10^3/uL (2.0-7.7); Basophil# 0.02 X10^3/uL; Basophil% 0.5 % (0-1); Eosinophil# 0.07 X10^3/uL; Eosinophils% 1.7 % (0-5); Hematocrit 37.4 % (37-47); Hemoglobin 11.8 g/dL (12.0-15.0); Lymphocyte # 1.45 X10^3/ul (0.83-4.51); Lymphocyte % 35.3 % (19-41); Mean Corp Hgb Conc 31.6 g/dL (32-36); Mean Corpuscular Volume 98.2 fL (81-99); Mean Platelet Vol. 9.7 fl (6.2-12.0); Monocyte# 0.49 X10^3/uL; Monocyte% 11.9 % (0-10); NRBC Flagged by Analyzer 0 % (0-5); Neutrophil # 2.07 X10^3/uL (2.7-7.7); Neutrophil % 50.4 % (47-70); Platelet Count 233 K/mm3 (150-450); RBC Distribution Width CV 13.5 % (11.6-14.6); RBC Distribution Width SD 49.1 fl (35.1-43.9); Red Blood Count 3.81 M/mm3 (4.2-5.4); White Blood Count 4.1 K/mm3 (4.4-11.0)
[2020-08-26 15:11] LABS: Vitamin D,25 Hydroxy 52.1 ng/mL
[2020-08-26 15:21] LABS: AST(SGOT) 18 U/L (15-37); Alanine Aminotransfer ALT/SGPT 25 U/L (13-56); Albumin, Serum 3.5 g/dL (3.2-5.0); Alkaline Phosphatase 61 U/L (45-117); Anion Gap 4 (5-15); BUN 26 mg/dL (7-18); BUN/Creat Ratio 24.3 RATIO (10-20); Calcium,Total 8.9 mg/dL (8.5-10.1); Chloride 107 mmol/L (98-107); Creatinine, Serum 1.07 mg/dL (0.55-1.02); EST Glomerular Filtration Rate 54 mL/min (>60); Est Glom Filt Rate - Afr Amer 66 mL/min (>60); Globulin 3.4 g/dL (2.2-4.2); Glucose 104 mg/dL (74-106); Potassium 3.9 mmol/L (3.5-5.1); Protein, Total 6.9 g/dL (6.4-8.2); Sodium Level 143 mmol/L (136-145); Thyroid Stim Hormone (TSH) 2.21 uIU/mL (0.358-3.74)
== END ==
PROVIDERS: PCP Family Medicine Geriatric Medicine; Visit Provider Family Medicine Geriatric Medicine
DX: E11.9 Type 2 diabetes mellitus without complications (principal); E55.9 Vitamin D deficiency, unspecified; I10 Essential (primary) hypertension
CPT/HCPCS: 36415; 80053; 82306; 84443; 85025

== ENCOUNTER → 2020-09-10 12:47 | Outpatient (CLI) | payer MEDICARE, MEDICAID, SELFPAY ==
[2018-11-04 13:01] VITALS: BMI 25.2
--- NOTE | 2020-09-10 12:48 | BI_ITS ---
MAMMOGRAPHY - BILATERAL SCREENING REASON FOR EXAM: Female, 64 years old. Routine annual screening examination. PERTINENT HISTORY: Aunt with breast cancer. Prior left stereotactic breast biopsy. TECHNIQUE: Digital bilateral breast roland (3D mammographic acquisition) in the CC and MLO projections. 2-D mediolateral oblique (MLO) and craniocaudad (CC) views of both breasts were obtained. CAD: Full Field Digital Mammography with Computer Added Detection was performed. COMPARISON: Comparison is made with prior study dated 09/04/2018 and 08/28/2016. FINDINGS: Breast Composition: The breasts are heterogeneously dense, which may obscure small masses. There are no dominant masses or suspicious calcifications. A tissue clip marker is once again seen in the deep upper lateral aspect of the left breast. No other significant abnormalities are identified. There has been no significant change since the prior study. BI/SCRN MAMM (CAD)W/ROLAND BILAT IMPRESSION: Stable bilateral screening mammogram. Yearly follow-up mammogram recommended. (A) ASSESSMENT CATEGORY: BIRADS Category 2: Benign. A letter regarding these results will be sent to the patient by the facility within 30 days. Approximately 10% of breast cancers are not detected by mammography. A normal mammogram should not delay biopsy of a clinically suspicious abnormality. [id number] Electronically Signed: Rigoberto Hanson MD at 14:23 EDT , Service support ,
== END ==
PROVIDERS: PCP Family Medicine Geriatric Medicine; Referring Provider Family Medicine Geriatric Medicine; Visit Provider Family Medicine Geriatric Medicine
DX: Z12.31 Encounter for screening mammogram for malignant neoplasm of breast (principal)
CPT/HCPCS: 77063; 77067

== ENCOUNTER 2021-03-01 14:53 | Outpatient (CLI) | payer MEDICARE, MEDICAID, SELFPAY ==
[2021-03-01 16:05] LABS: Absolute Lymphocyte Count 1.66 X10^3/uL (0.83-4.51); Absolute Neutrophil Count 2.6 X10^3/uL (2.0-7.7); Basophil# 0.03 X10^3/uL; Basophil% 0.6 % (0-1); Eosinophil# 0.06 X10^3/uL; Eosinophils% 1.2 % (0-5); Hematocrit 36.8 % (37-47); Hemoglobin 11.8 g/dL (12.0-15.0); Lymphocyte # 1.66 X10^3/ul (0.83-4.51); Lymphocyte % 33.7 % (19-41); Mean Corp Hgb Conc 32.1 g/dL (32-36); Mean Corpuscular Hgb 31.1 pg (27.0-32.0); Mean Corpuscular Volume 97.1 fL (81-99); Monocyte# 0.52 X10^3/uL; Monocyte% 10.5 % (0-10); NRBC Flagged by Analyzer 0 % (0-5); Neutrophil # 2.64 X10^3/uL (2.7-7.7); Neutrophil % 53.6 % (47-70); Platelet Count 249 K/mm3 (150-450); RBC Distribution Width CV 13.2 % (11.6-14.6); RBC Distribution Width SD 47.3 fl (35.1-43.9); Red Blood Count 3.79 M/mm3 (4.2-5.4); White Blood Count 4.9 K/mm3 (4.4-11.0)
[2021-03-01 16:23] LABS: Vitamin D,25 Hydroxy 52.2 ng/mL
[2021-03-01 16:42] LABS: AST(SGOT) 14 U/L (15-37); Alanine Aminotransfer ALT/SGPT 24 U/L (13-56); Albumin, Serum 3.5 g/dL (3.2-5.0); Alkaline Phosphatase 73 U/L (45-117); Anion Gap 9 (5-15); BUN 16 mg/dL (7-18); BUN/Creat Ratio 14.8 RATIO (10-20); Calcium,Total 8.8 mg/dL (8.5-10.1); Chloride 107 mmol/L (98-107); Creatinine, Serum 1.08 mg/dL (0.55-1.02); EST Glomerular Filtration Rate 54 mL/min (>60); Est Glom Filt Rate - Afr Amer 65 mL/min (>60); Globulin 3.5 g/dL (2.2-4.2); Glucose 113 mg/dL (74-106); Potassium 3.6 mmol/L (3.5-5.1); Sodium Level 143 mmol/L (136-145); Thyroid Stim Hormone (TSH) 2.07 uIU/mL (0.358-3.74)
== END 2021-03-01 23:59 | disposition short-term general hospital (02) ==
LOC: POLAB3 14:55
PROVIDERS: PCP Family Medicine Geriatric Medicine; Visit Provider Family Medicine Geriatric Medicine
DX: E11.9 Type 2 diabetes mellitus without complications (principal); E55.9 Vitamin D deficiency, unspecified; I10 Essential (primary) hypertension
CPT/HCPCS: 36415; 80053; 82306; 84443; 85025

== ENCOUNTER 2021-04-17 13:34 | Emergency (ER) | payer MEDICARE, MEDICAID, SELFPAY ==
[2021-04-17 13:35] VITALS: BP 133/58; PULSE 90; RESP 16; TEMP 37; O2SAT 98; BMI 27.9
--- NOTE | 2021-04-17 13:56 | RAD_ITS ---
STUDY: X-RAY - RIGHT ANKLE REASON FOR EXAM: Female, 65 years old. injury TECHNIQUE: 3 view(s) of the ankle. COMPARISON: None. FINDINGS: Normal visualized distal tibia and fibula. Normal medial and lateral malleoli. Normal tibiotalar articulation and ankle mortise. Normal visualized talus and calcaneus. The visualized subtalar, talonavicular, calcaneocuboid and tarsal articulations are normal. The soft tissue structures are unremarkable. RAD/Ankle min 3 Views IMPRESSION: Normal x-ray examination of the ankle. Electronically Signed: Fadi Hassan MD at 14:58 EST ,
--- NOTE | 2021-04-17 13:57 | ED.VIS.LOWEX ---
HPI History of Present Illness Chief Complaint: Lower Extremity Injury Detail of Chief Complaint: Injury to right ankle Informant: patient Narrative Narrative: Patient presents to the emergency department after an injury to her right ankle after a slip and fall today. Patient states that she slipped on some water and twisted her ankle. She denies striking her head or loss of consciousness. Patient able to bear some weight but is painful. She denies any other injuries. [facility] Medical History (Updated 04/17/21 @ 15:[address] Jules Osorio, DO) Diabetes HTN (hypertension) Home Medications atorvastatin 40 mg tablet PO #30 tab 11/04/18 [History Last Taken Unknown] losartan 100 mg-hydrochlorothiazide 12.5 mg tablet PO #30 tab 11/04/18 [History Last Taken Unknown] metformin 1,000 mg tablet PO #60 tab 11/04/18 [History Last Taken Unknown] metoprolol tartrate 25 mg tablet PO #30 tab 11/04/18 [History Last Taken Unknown] Allergy/AdvReac Type Severity Reaction Status Date / Time No Known Allergies Allergy Verified 04/17/21 13:35 Family History (Updated 11/04/18 @ 13:02 by Radha Coello) Other CVA (cerebral vascular accident) Social History (Updated 11/04/18 @ 13:23 by Alfredo KRISHNA, PA) Smoking Status: Never smoker alcohol intake: never ROS ROS ED Constitutional Constitutional ED: Reports systems reviewed and no addt'l complaints, except as documented; Denies body ache(s), change in weight or chills Eyes Eyes: Denies acute decrease in peripheral vision, change in vision, double vision or loss of vision ENT ENT ED: Reports none; Denies ear pain, lip swelling, loss taste/smell, neck pain, otalgia or sore throat Cardiovascular Cardiovascular: Reports none; Denies abdominal pain, chest pain with activity, leg edema, lightheadedness, palpitations, rapid heart rate or syncope Respiratory/Chest Respiratory/Chest: Reports none; Denies change in mental status, dry cough, dyspnea, hemoptysis, shortness of breath at rest or shortness of breath with exertion Gastrointestinal Gastrointestinal: Reports none; Denies abdominal pain, change in stool character, diarrhea, hematemesis, hematochezia, melena, rectal bleeding or vomiting Genitourinary Genitourinary ED: Reports none; Denies abdominal discomfort, anuria, dysuria, genital pain or polyuria Musculoskeletal Musculoskeletal: Reports none and other Details: Right ankle pain/injury ; Denies arthralgias, back pain, difficulty walking, extremity pain, muscle weakness or myalgias Integumentary Reports none; Denies abscess or rash Neurologic Neurologic: Reports none; Denies abnormal gait, confusion, focal weakness, frequent falls, headache(s), loss of vision, numbness, paresthesias, radicular pain, vertigo or weakness Psychiatric Psychiatric: Reports systems reviewed and no addt'l complaints, except as documented and none; Denies behavioral changes, confusion, difficulty concentrating, hallucinations, suicidal ideation, tactile hallucinations or visual hallucinations Endocrine Endocrinology: Denies none, cold intolerance, excessive sweating, fatigue or heat intolerance Hematologic/Lymphatic Hematologic/Lymphatic: Reports none; Denies anemia, easy bleeding or easy bruising Allergic/Immunologic Allergic/Immunologic ED: Denies as per HPI, none, lip swelling, mouth swelling, throat swelling, tongue swelling or hives EXAM Physical Exam Const Vital Signs: 04/17/21 13:35 Temperature 98.6 F Temperature Source Temporal Pulse Rate 90 Respiratory Rate 16 Blood Pressure 133/58 H Blood Pressure Mean 83 Pulse Ox 98 Oxygen Delivery Method Room Air Positive well nourished and well developed General Appearance ED: well developed and NAD HEENT Reports TM's clear and moist mucous membranes normocephalic and atraumatic; Negative for trauma or tenderness Tympanic Membrane ED: Yes TM's clear Eyes PERRL and EOMs intact bilaterally General Eye ED: Negative for pale conjunctiva or scleral icterus Neck no lymphadenopathy, supple and no JVD General: Negative for tenderness Chest Wall inspection of chest normal and palpation of chest normal Chest: Negative for tenderness Resp normal respiratory effort and clear to auscultation bilaterally Effort and Inspection: Negative for respiratory distress or pain with movement Auscultation: Negative for rhonchi, wheezes or diminished lung sounds Cardio regular rate, regular rhythm, S1 normal heart sound, S2 normal heart sound and no murmurs Peripheral Pulses: pulses 2+ throughout GI normal to inspection, nondistended, normoactive bowel sounds, soft to palpation, non-tender, non-distended and no masses Back/Spine no CVA tenderness and no thoracic nor lumbar tenderness Extremity Extremity Narrative: Patient has diffuse soft tissue swelling over the lateral malleolus with tenderness over the lateral malleolus on exam. No pain at the proximal fibular head. No pain at the base of the fifth metatarsal. Neurovascularly intact distally. General Extremety ED: Negative for edema General Extremity: Negative for edema Neuro oriented x3, CN's II-XII intact bilaterally, no sensory deficits noted and gait normal Sensorium / Orientation: awake, alert, oriented to person, oriented to place and oriented to time Motor Exam: strength 5/5 throughout and strength abnormal Psych mental status grossly normal Skin no rashes or lesions noted and no wounds MDM MDM MDM Narrative Medical decision making narrative: X-rays obtained of the right ankle were negative for fracture. At this point I suspect an ankle sprain. She will be given an air splint and crutches. Patient advised use ibuprofen or Tylenol for discomfort. She is to follow-up with her primary care physician in 5 to 7 days. Radiography Diagnostic Testing: Clinical Impression(s) from Imaging Studies Ankle X-Ray 04/17/21 13:56 IMPRESSION: Normal x-ray examination of the ankle. Electronically Signed: Fadi Hassan MD at 14:58 EST , Three-view x-rays of the right ankle obtained interpreted by myself as no acute fractures or dislocations. Radiologist in agreement. There was soft tissue swelling noted over the lateral malleolus. Discharge Plan Triage Chief Complaint: Lower Extremity Injury ED Provider: Jules Osorio Dx/Rx/DC Orders Clinical Impression: Right ankle sprain Instructions: ED Ankle Sprain (Adult) Prescriptions: No Action metformin 1,000 mg tablet PO Qty: 60 RF: 0 atorvastatin 40 mg tablet PO Qty: 30 RF: 0 metoprolol tartrate 25 mg tablet PO Qty: 30 RF: 0 losartan-hydrochlorothiazide 100-12.5 mg tablet PO Qty: 30 RF: 0 Primary Care Provider: Marquis Singh Chi Referrals: Marquis Singh Chi, MD [Primary Care Provider] - 5-7 Days Disposition Disposition: Home, Self Care
--- NOTE | 2021-04-17 16:00 | ED.RN ---
PT INFORMED WE CURRENTLY DO NOT HAVE ANY CRUTCHES. 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 THEN WE WILL FINISH DC
--- NOTE | 2021-04-17 16:49 | ED.RN ---
PT DOES NOT WANT TO WAIT FOR CRUTCHES. PT ALSO REMOVED AIR CAST. PT REQUESTED [facility]. [facility] HAS ONE SET BUT UNABLE TO BILL INSURANCE ON SUNDAYS. PT CONTACTED AND NOTIFIED OF THE SAME. ORDER FOR CRUTCHES FAXED TO [facility]
[2021-04-17 16:55] VITALS: PULSE 79; RESP 16; O2SAT 100
== END 2021-04-17 16:56 | disposition home or self-care (01) ==
PROVIDERS: Emergency Provider Emergency Medicine; PCP Family Medicine Geriatric Medicine; Visit Provider Emergency Medicine
DX: S93.401A Sprain of unspecified ligament of right ankle, initial encounter (principal); W19.XXXA Unspecified fall, initial encounter
CPT/HCPCS: 73610; 99283

== ENCOUNTER → 2021-08-30 | Outpatient (CLI) | payer MEDICARE, MEDICAID, SELFPAY ==
[2021-08-30 17:07] LABS: Absolute Lymphocyte Count 1.89 X10^3/uL (0.83-4.51); Absolute Neutrophil Count 2.1 X10^3/uL (2.0-7.7); Basophil# 0.02 X10^3/uL; Basophil% 0.4 % (0-1); Eosinophil# 0.06 X10^3/uL; Eosinophils% 1.3 % (0-5); Hematocrit 36.4 % (37-47); Hemoglobin 11.7 g/dL (12.0-15.0); Lymphocyte # 1.89 X10^3/ul (0.83-4.51); Lymphocyte % 41.1 % (19-41); Mean Corp Hgb Conc 32.1 g/dL (32-36); Mean Corpuscular Hgb 31.5 pg (27.0-32.0); Mean Corpuscular Volume 98.1 fL (81-99); Mean Platelet Vol. 10.3 fl (6.2-12.0); Monocyte% 10.9 % (0-10); NRBC Flagged by Analyzer 0 % (0-5); Neutrophil # 2.12 X10^3/uL (2.7-7.7); Neutrophil % 46.1 % (47-70); Platelet Count 240 K/mm3 (150-450); RBC Distribution Width CV 13.5 % (11.6-14.6); Red Blood Count 3.71 M/mm3 (4.2-5.4); White Blood Count 4.6 K/mm3 (4.4-11.0)
[2021-08-30 17:24] LABS: Vitamin D,25 Hydroxy 44.4 ng/mL
[2021-08-30 17:39] LABS: AST(SGOT) 17 U/L (15-37); Alanine Aminotransfer ALT/SGPT 20 U/L (13-56); Albumin, Serum 3.5 g/dL (3.2-5.0); Alkaline Phosphatase 66 U/L (45-117); Anion Gap 6 (5-15); BUN 31 mg/dL (7-18); BUN/Creat Ratio 22.6 RATIO (10-20); Calcium,Total 9.2 mg/dL (8.5-10.1); Chloride 106 mmol/L (98-107); Creatinine, Serum 1.37 mg/dL (0.55-1.02); EST Glomerular Filtration Rate 41 mL/min (>60); Est Glom Filt Rate - Afr Amer 49 mL/min (>60); Globulin 3.4 g/dL (2.2-4.2); Glucose 142 mg/dL (74-106); Potassium 3.9 mmol/L (3.5-5.1); Protein, Total 6.9 g/dL (6.4-8.2); Sodium Level 141 mmol/L (136-145); Thyroid Stim Hormone (TSH) 2.19 uIU/mL (0.358-3.74)
== END | disposition home or self-care (01) ==
LOC: POLAB3 13:08
PROVIDERS: PCP Family Medicine Geriatric Medicine; Visit Provider Family Medicine Geriatric Medicine
DX: I10 Essential (primary) hypertension (principal); E11.9 Type 2 diabetes mellitus without complications; E55.9 Vitamin D deficiency, unspecified
CPT/HCPCS: 36415; 80053; 82306; 84443; 85025

== ENCOUNTER → 2021-09-06 | Outpatient (CLI) | payer MEDICARE, MEDICAID, SELFPAY ==
--- NOTE | 2021-09-06 09:40 | TISS_PTH ---
PATIENT: JEYSON DAVE LOC: [facility] U#:[id number] AGE/SX: 65/F ROOM: RE09/06/[address]: Dr. Marquis Singh MD : 1955 BED: DIS: 09/06/2021 SPEC #: [id number] RECD: 09/06/21 17:17 STATUS: GIL KARLOS #: [id number] GANGA: 09/06/21 09:[address]: Marquis Singh Chi DEPT: SURGICAL PATHOLOGY RECD BY: Ramesh Barbosa Tissues: Skin of face, NOS Procedures: Surgery Specimen Level IV HEADER OPERATION: Right cheek PRE-OP DIAGNOSIS: Right cheek TISSUE SUBMITTED: Right cheek MICROSCOPIC DIAGNOSIS Skin lesion of right cheek, shave biopsy: Actinic keratosis. Solar elastosis, mildly inflamed. AM:clemencia 09/08/2021 MICROSCOPIC DESCRIPTION Slides are reviewed. GROSS DESCRIPTION Received is one container labeled with the patient's name and not further designated. The specimen consists of an irregular fragment of light caballero, shaved skin measuring 1.3 x 1.2 x 0..2 cm. The specimen is totally submitted in one cassette. / AM:clemencia 09/07/2021 TC:5 CPT: 62778
== END | disposition home or self-care (01) ==
PROVIDERS: PCP Family Medicine Geriatric Medicine; Visit Provider Family Medicine Geriatric Medicine
DX: L57.0 Actinic keratosis (principal)
CPT/HCPCS: 88305

== ENCOUNTER → 2021-11-24 | Outpatient (CLI) | payer MEDICARE, MEDICAID, SELFPAY ==
[2021-11-24 15:24] LABS: Microalbumin,Random Urine 39.2 mg/L (NO RANGE EST.); Microalbumin:Creatinine Ratio 13.6 mg/g CRE (<30 mg/g CRE)
== END | disposition home or self-care (01) ==
LOC: LAB.FUTURE 10:27 → LABSPEC 10:27
PROVIDERS: PCP Family Medicine Geriatric Medicine; Visit Provider Internal Medicine Nephrology
DX: E11.22 Type 2 diabetes mellitus with diabetic chronic kidney disease (principal); N18.9 Chronic kidney disease, unspecified
CPT/HCPCS: 82043; 82570

== ENCOUNTER → 2021-12-30 | Outpatient (CLI) | payer MEDICARE, MEDICAID, SELFPAY ==
[2021-12-30 12:39] LABS: Albumin, Serum 3.5 g/dL (3.2-5.0); BUN 27 mg/dL (7-18); BUN/Creat Ratio 21.3 RATIO (10-20); Calcium,Total 9.6 mg/dL (8.5-10.1); Chloride 105 mmol/L (98-107); Creatinine, Serum 1.27 mg/dL (0.55-1.02); EST Glomerular Filtration Rate 45 mL/min (>60); Est Glom Filt Rate - Afr Amer 54 mL/min (>60); Glucose 118 mg/dL (74-106); Phosphorus 3.7 mg/dL (2.5-4.9); Potassium 3.6 mmol/L (3.5-5.1); Sodium Level 138 mmol/L (136-145)
== END | disposition home or self-care (01) ==
LOC: LAB 11:15
PROVIDERS: PCP Family Medicine Geriatric Medicine; Visit Provider Internal Medicine Nephrology
DX: N17.9 Acute kidney failure, unspecified (principal)
CPT/HCPCS: 36415; 80069

== ENCOUNTER → 2022-03-08 | Outpatient (CLI) | payer MEDICARE, MEDICAID, SELFPAY ==
[2022-03-08 15:31] LABS: Absolute Neutrophil Count 2.3 X10^3/uL (2.0-7.7); Basophil# 0.03 X10^3/uL; Basophil% 0.6 % (0-1); Eosinophil# 0.07 X10^3/uL; Eosinophils% 1.5 % (0-5); Hematocrit 38.2 % (37-47); Hemoglobin 12.5 g/dL (12.0-15.0); Lymphocyte % 38.1 % (19-41); Mean Corp Hgb Conc 32.7 g/dL (32-36); Mean Corpuscular Hgb 31.7 pg (27.0-32.0); Mean Platelet Vol. 10.1 fl (6.2-12.0); Monocyte# 0.47 X10^3/uL; Monocyte% 9.9 % (0-10); NRBC Flagged by Analyzer 0 % (0-5); Neutrophil # 2.34 X10^3/uL (2.7-7.7); Neutrophil % 49.5 % (47-70); Platelet Count 241 K/mm3 (150-450); RBC Distribution Width CV 13.8 % (11.6-14.6); RBC Distribution Width SD 49.7 fl (35.1-43.9); Red Blood Count 3.94 M/mm3 (4.2-5.4); White Blood Count 4.7 K/mm3 (4.4-11.0)
[2022-03-08 15:46] LABS: Vitamin D,25 Hydroxy 41.6 ng/mL
[2022-03-08 15:59] LABS: ALB/GLOB Ratio 0.9 RATIO (0.9-2.4); AST(SGOT) 13 U/L (15-37); Alanine Aminotransfer ALT/SGPT 23 U/L (13-56); Albumin, Serum 3.3 g/dL (3.2-5.0); Alkaline Phosphatase 84 U/L (45-117); Anion Gap 7 (5-15); BUN 23 mg/dL (7-18); BUN/Creat Ratio 16.4 RATIO (10-20); Calcium,Total 9.1 mg/dL (8.5-10.1); Chloride 104 mmol/L (98-107); EST Glomerular Filtration Rate 40 mL/min (>60); Est Glom Filt Rate - Afr Amer 48 mL/min (>60); Globulin 3.7 g/dL (2.2-4.2); Glucose 182 mg/dL (74-106); Sodium Level 141 mmol/L (136-145); Thyroid Stim Hormone (TSH) 2.13 uIU/mL (0.358-3.74)
== END | disposition home or self-care (01) ==
LOC: POLAB3 11:19
PROVIDERS: PCP Family Medicine Geriatric Medicine; Visit Provider Family Medicine Geriatric Medicine
DX: I10 Essential (primary) hypertension (principal); E11.65 Type 2 diabetes mellitus with hyperglycemia; E55.9 Vitamin D deficiency, unspecified
CPT/HCPCS: 36415; 80053; 82306; 84443; 85025

== ENCOUNTER → 2022-08-23 | Outpatient (CLI) | payer MEDICARE, MEDICAID, SELFPAY ==
--- NOTE | 2022-08-23 17:04 | RAD_ITS ---
EXAM: XR LUMBOSACRAL SPINE, 4 OR 5 VIEWS CLINICAL INDICATION: LOW BACK PAIN TECHNIQUE: Frontal, lateral and bilateral oblique views of the lumbar spine. COMPARISON: No relevant prior studies available. FINDINGS: Atherosclerotic calcifications of the abdominal aorta with no obvious aneurysm. VERTEBRAE: Unremarkable. Preserved vertebral body height. No fracture. No spondylolisthesis. Preservation of the normal lumbar lordosis. No significant facet arthropathy. DISC SPACES: No acute findings. Disc spaces are maintained. GASTROINTESTINAL TRACT: Unremarkable as visualized. Included bowel gas pattern is non-obstructive. RAD/L/S Spine Min 4 Views IMPRESSION: No evidence of lumbar spinal fracture or spondylolisthesis. Electronically Signed: Pilo Stevenson MD at 2:57 EDT ,
== END | disposition home or self-care (01) ==
LOC: RAD 17:00
PROVIDERS: PCP Family Medicine Geriatric Medicine; Referring Provider Family Medicine Geriatric Medicine; Visit Provider Family Medicine Geriatric Medicine
DX: M54.50 Low back pain, unspecified (principal)
CPT/HCPCS: 72110

== ENCOUNTER → 2022-09-04 | Outpatient (CLI) | payer MEDICARE, MEDICAID, SELFPAY ==
[2022-09-04 16:22] LABS: Basophil# 0.03 X10^3/uL; Basophil% 0.6 % (0-1); Eosinophil# 0.07 X10^3/uL; Eosinophils% 1.3 % (0-5); Hematocrit 40.6 % (37-47); Hemoglobin 12.5 g/dL (12.0-15.0); Lymphocyte % 31.7 % (19-41); Mean Corp Hgb Conc 30.8 g/dL (32-36); Mean Corpuscular Hgb 30.6 pg (27.0-32.0); Mean Corpuscular Volume 99.5 fL (81-99); Mean Platelet Vol. 10.1 fl (6.2-12.0); Monocyte# 0.51 X10^3/uL; Monocyte% 9.5 % (0-10); NRBC Flagged by Analyzer 0 % (0-5); Neutrophil # 3.04 X10^3/uL (2.7-7.7); Neutrophil % 56.5 % (47-70); Platelet Count 251 K/mm3 (150-450); RBC Distribution Width CV 14.2 % (11.6-14.6); RBC Distribution Width SD 52.7 fl (35.1-43.9); Red Blood Count 4.08 M/mm3 (4.2-5.4); White Blood Count 5.4 K/mm3 (4.4-11.0)
[2022-09-04 17:17] LABS: Vitamin D,25 Hydroxy 52.6 ng/mL
[2022-09-04 17:20] LABS: ALB/GLOB Ratio 0.8 RATIO (0.9-2.4); AST(SGOT) 14 U/L (15-37); Alanine Aminotransfer ALT/SGPT 23 U/L (13-56); Albumin, Serum 3.1 g/dL (3.2-5.0); Alkaline Phosphatase 96 U/L (45-117); Anion Gap 4 (5-15); BUN 21 mg/dL (7-18); BUN/Creat Ratio 17.9 RATIO (10-20); Calcium,Total 8.8 mg/dL (8.5-10.1); Chloride 106 mmol/L (98-107); Cholesterol 159 mg/dL (200); Creatinine, Serum 1.17 mg/dL (0.55-1.02); EST Glomerular Filtration Rate 49 mL/min (>60); Est Glom Filt Rate - Afr Amer 59 mL/min (>60); Glucose 127 mg/dL (74-106); High Density Lipoprotein 57 mg/dL; Phosphorus 3.9 mg/dL (2.5-4.9); Potassium 4.2 mmol/L (3.5-5.1); Protein, Total 7.1 g/dL (6.4-8.2); Sodium Level 139 mmol/L (136-145); Thyroid Stim Hormone (TSH) 2.48 uIU/mL (0.358-3.74); Triglycerides 78 mg/dL; Very Low Density Lipoprotein 16 mg/dL (5-40)
[2022-09-04 17:28] LABS: Hemoglobin A1c 6.8 % (3.8-5.6)
[2022-09-04 19:59] LABS: Microalbumin,Random Urine 11.2 mg/L (NO RANGE EST.)
== END | disposition home or self-care (01) ==
PROVIDERS: PCP Family Medicine Geriatric Medicine; Referring Provider Family Medicine Geriatric Medicine; Visit Provider Internal Medicine Nephrology
DX: N18.31 Chronic kidney disease, stage 3a (principal); E11.22 Type 2 diabetes mellitus with diabetic chronic kidney disease
CPT/HCPCS: 36415; 80053; 80061; 82043; 82306; 82570; 83036; 84100; 84443; 85025

== ENCOUNTER 2022-09-20 11:57 | Outpatient (CLI) | payer MEDICAID, SELFPAY ==
--- NOTE | 2022-09-20 09:45 | MRI_ITS ---
STUDY: MRI LUMBAR SPINE WITHOUT CONTRAST REASON FOR EXAM: Female, 66 years old. RADICULOPATHY, R SCIATICA TECHNIQUE: Standardized fat and water weighted pulse sequences were obtained in the sagittal and axial planes. COMPARISON: Lumbar spine radiograph August 23, 2022 FINDINGS: T12-L1: Normal endplates. Normal disc height, hydration and morphology. Normal bilateral facet joints. Normal central canal and bilateral lateral recesses. Normal bilateral intervertebral neural foramina. Normal lumbar lordosis. There is no substantial scoliosis. Normal conus medullaris that terminates at the L1 level. L1-2: Normal endplates. Mild annular bulge. Normal disc height, hydration and morphology. Normal bilateral facet joints. Normal central canal and bilateral lateral recesses. Small focal disc marginal osteophyte right foramen. Moderate narrowing right intervertebral neural foramina. L2-3: Mild circumferential annular bulge. Fluid-filled hypertrophic facets. Moderate narrowing of the neural foramina bilaterally. Central thecal sac measures 10 mm. L3-4: Fluid-filled hypertrophic facets causing severe trefoil type narrowing the thecal sac and neural foramina. Central thecal sac measures 6 mm. L4-5: Fluid-filled hypertrophic facets causing severe trefoil type narrowing the thecal sac and neural foramina. Central thecal sac measures 6 mm. L5-S1: Normal endplates. Normal disc height, hydration and morphology. Hypertrophic bilateral facet joints. Normal central canal and bilateral lateral recesses. Moderate narrowing bilateral intervertebral neural foramina. Normal visualized sacral ala. Normal visualized paraspinous soft tissue structures. Parapelvic renal cysts. MRI/Spine Lumbar (Routine) IMPRESSION: Multilevel spinal stenosis L3-4 and L4-5 especially Electronically Signed: Conrad Cortez MD at 17:49 EDT Reading Location ID and State: [facility] / [place] , Service support ,
== END 2022-09-20 23:59 | disposition home or self-care (01) ==
LOC: MRI 10-03 11:57
PROVIDERS: PCP Family Medicine Geriatric Medicine; Referring Provider Family Medicine Geriatric Medicine; Visit Provider Family Medicine Geriatric Medicine
DX: M54.16 Radiculopathy, lumbar region (principal); M48.061 Spinal stenosis, lumbar region without neurogenic claudication; Z12.31 Encounter for screening mammogram for malignant neoplasm of breast; Z80.3 Family history of malignant neoplasm of breast
CPT/HCPCS: 72148; 77063; 77067

== ENCOUNTER → 2022-09-20 | Outpatient (CLI) | payer MEDICAID, SELFPAY ==
--- NOTE | 2022-09-20 14:55 | BI_ITS ---
MAMMOGRAPHY - BILATERAL SCREENING REASON FOR EXAM: Female, 66 years old. Routine annual screening examination. PERTINENT HISTORY: Aunt with breast cancer. Prior left stereotactic breast biopsy. TECHNIQUE: Digital bilateral breast roland (3D mammographic acquisition) in the CC and MLO projections. 2-D mediolateral oblique (MLO) and craniocaudad (CC) views of both breasts were obtained. CAD: Full Field Digital Mammography with Computer Added Detection was performed. COMPARISON: Comparison is made with prior study dated September 10, 2020 and September 04, 2018. FINDINGS: Breast Composition: The breasts are heterogeneously dense, which may obscure small masses. There are no dominant masses or suspicious calcifications. A tissue clip marker is seen in the lateral aspect of the left breast. No other significant abnormalities are identified. There has been no significant change since the prior study. BI/SCRN MAMM (CAD)W/ROLAND BILAT IMPRESSION: Stable bilateral screening mammogram. Yearly follow-up mammogram recommended. (A) ASSESSMENT CATEGORY: BIRADS Category 2: Benign. A letter regarding these results will be sent to the patient by the facility within 30 days. Approximately 10% of breast cancers are not detected by mammography. A normal mammogram should not delay biopsy of a clinically suspicious abnormality. [id number] Electronically Signed: Rigoberto Hanson MD at 15:31 EDT ,
== END | disposition home or self-care (01) ==
LOC: OPBI 09:26
PROVIDERS: PCP Family Medicine Geriatric Medicine; Referring Provider Family Medicine Geriatric Medicine; Visit Provider Family Medicine Geriatric Medicine
DX: Z12.31 Encounter for screening mammogram for malignant neoplasm of breast (principal); Z80.3 Family history of malignant neoplasm of breast
CPT/HCPCS: 77063; 77067

== ENCOUNTER → 2023-03-08 | Outpatient (CLI) | payer OTHER, MEDICAID, SELFPAY ==
--- OUTSIDE RECORDS SUMMARY | 2023-03-08 14:09 | XMS RPT_ITS | CCD ---
Author Name Unknown Address [address] [place] [address] Organization [facility] Care Team Providers Care Film Editor Name Role Phone Dirk Rivero MD Unavailable [phone] Medications Completed/Discontinued Medications Medication Drug Class(es) Dates Sig (Normalized) Sig (Original) aspirin 81 mg delayed release oral tablet (1 source) Platelet Aggregation Inhibitor, Nonsteroidal Anti-inflammatory Drug Start: 04-10-2019 ASPIRIN 81 MG TBEC ASPIRIN [id number] Dirk Rivero MD atorvastatin 40 mg oral tablet (1 source) HMG-CoA Reductase Inhibitor Start: 04-10-2019 LIPITOR 40 MG TABS ATORVASTATIN CALCIUM [id number] Dirk Rivero MD Cholecalciferol (1 source) Vitamin D Start: 04-10-2019 VITAMIN D TABLET CHOLECALCIFEROL TABS Dirk Rivero MD diclofenac sodium 0.01 mg/mg topical gel (1 source) Nonsteroidal Anti-inflammatory Drug Start: 04-10-2019 End: 05-09-2019 VOLTAREN 1 % GEL Apply 2 grams to affected area twice per day DICLOFENAC SODIUM [id number] Dirk Rivero MD losartan potassium 25 mg oral tablet (1 source) Angiotensin 2 Receptor Miguel Start: 04-10-2019 LOSARTAN POTASSIUM 25 MG TABS LOSARTAN POTASSIUM [id number] Dirk Rivero MD metFORMIN hydrochloride 1000 mg oral tablet (1 source) Biguanide Start: 04-10-2019 METFORMIN HCL 1000 MG TABS METFORMIN HCL [id number] Dirk Rivero MD Problems Active Problems Problem Classification Problem Date Documented Date Episodic/Chronic Diabetes mellitus without complication (1 source) Diabetes mellitus; Translations: [Type 2 diabetes mellitus without complications] Onset: 04-10-2019 04-10-2019 Chronic Osteoarthritis (2 sources) Localized, primary osteoarthritis of the hand; Translations: [Primary osteoarthritis, left hand] Onset: 04-10-2019 04-10-2019 Chronic Other non-traumatic joint disorders (2 sources) Finger joint stiff; Translations: [Stiffness of right hand, not elsewhere classified] Onset: 04-10-2019 04-10-2019 Episodic Past or Other Problems Problem Classification Problem Date Documented Da te Episodic/Chronic Unclassified (1 source) Problem Results Test Name Value Interpretation Reference Range Facil ity Vital Signs Date Time Vital Sign Value Performing Clinician Facility NEGATED: Highlighted [id number] 14:23-0500 BMI (Body Mass Index) 24.42 kg/m2 Estefany Schaeferbbins [employer] WORK[employer] [facility] Work Phone: NEGATED: Highlighted [id number] 14:23-0500 Body weight 72.58 kg Estefany Riverside [employer] WORKER [facility] Work Phone: NEGATED: Highlighted [id number] 14:23-0500 Body weight 73 kg Estefany Schaeferbbins [employer] WORKER [facility] Work Phone: NEGATED: Highlighted [id number] 14:23-0500 BP Diastolic 76 mm[Hg] Estefany Riverside [employer] WORK[employer] [facility] Work Phone: NEGATED: Highlighted [id number] 14:23-0500 BP Systolic 128 mm[Hg] Estefany Riverside [employer] WORKER [facility] Work Phone: NEGATED: Highlighted [id number] 14:23-0500 Height 172.72 cm Estefany Riverside [employer] WORKER [facility] Work Phone: NEGATED: Highlighted [id number] 14:23-0500 Height 173 cm Estefany Schaeferbbins [employer] WORK[employer] [facility] Work Phone: NEGATED: Highlighted [id number] 14:23-0500 Pulse (Heart Rate) 67 /min Estefany Riverside [employer] WORKER [facility] Work Phone: Encounters Encounter Date Encounter Type Care Provider Facility Start: 04-10-2019 End: 04-10-2019 Patient encounter procedure Dirk Rivero MD Work Phone: [facility] Work Phone: Procedures Date Procedure Procedure Detail Performing Clinician Start: 04-10-2019 End: 04-10-2019 Arthrocentesis aspir&/inj small jt/bursa w/o us Dirk Rivero MD Work Phone: Start: 04-10-2019 End: 04-10-2019 Blood pressure within normal parameters - no follow-up required Dirk Rivero MD Work Phone: Start: 04-10-2019 End: 04-10-2019 BMI documented within normal parameters - no follow-up plan is required Dirk Rivero MD Work Phone: Start: 04-10-2019 End: 04-10-2019 Documentation of current medications Dirk Rivero MD Work Phone: Start: 04-10-2019 End: 04-10-2019 Injection - betamethasone acetate 3 mg and betamethasone sodium phosphate 3 mg Dirk Rivero MD Work Phone: Start: 04-10-2019 End: 04-10-2019 Osteoarthritis assess Dirk Rivero MD Work Phone: Start: 04-10-2019 End: 04-10-2019 Pain assessment documented as positive - follow-up documented Dirk Rivero MD Work Phone: Start: 04-10-2019 End: 04-10-2019 Tobacco non-user Dirk Rivero MD Work Phone: NEGATED: Highlighted rowStart: 04-10-2019 End: 04-10-2019 Documentation of current medications Estefany Pollock LPN Plan of Treatment Date Care Activity Detail Author Start: 04-10-2019 End: 04-10-2019 Appointment Appointment [facility] Work Phone: Start: 04-10-2019 End: 04-10-2019 Radex hand minimum 3 views [facility] Work Phone: Patient Education Medications [facility] Work Phone: Social History Date Type Detail Facility NEGATED: Highlighted rowStart: 04-10-2019 End: 04-10-2019 Alcohol use Alcohol use [facility] Work Phone: NEGATED: Highlighted rowStart: 04-10-2019 End: 04-10-2019 Details of drug misuse behavior Details of drug misuse behavior [facility] Work Phone: NEGATED: Highlighted rowStart: 04-10-2019 End: 04-10-2019 Assertion Never smoker [facility] Work Phone: Chief Complaint Chief Complaint Description Start Date bilateral hand pain Preliminary chief co mplaint data, not yet signed by the author as of Instructions Instruction Description Start Date Completed Advance Directives There may be information available, but it has not been provided by the sender. Assessments There may be information available, but it has not been provided by the sender. Review of System There may be information available, but it has not been provided by the sender. Family History There may be information available, but it has not been provided by the sender. History of Present Illness There may be information available, but it has not been provided by the sender. Additional Source Comments Reason for Visit (unrecogniz ed section and content) FOR RECORDS PERTAINING TO PATIENTS WHO ARE OR HAVE BEEN ENROLLED IN A CHEMICAL DEPENDENCY/SUBSTANCEABUSE PROGRAM, SOME INFORMATION MAY BE OMITTED. This clinical summary was aggregated from multiple sources. Caution should be exercised in using it in the provision of clinical care. This summary normalizes information from multiple sources, and as a consequence, information in this document may materially change the coding, format and clinical context of patient data. In addition, data may be omitted in some cases. CLINICAL DECISIONS SHOULD BE BASED ON THE PRIMARY CLINICAL RECORDS. [employer] [facility]. provides no warranty or guarantee of the accuracy or completeness of information in this document.
[2023-03-08 14:36] LABS: Absolute Lymphocyte Count 1.77 X10^3/uL (0.83-4.51); Absolute Neutrophil Count 4.2 X10^3/uL (2.0-7.7); Basophil# 0.04 X10^3/uL; Basophil% 0.6 % (0-1); Eosinophil# 0.08 X10^3/uL; Eosinophils% 1.2 % (0-5); Hematocrit 43.4 % (37-47); Hemoglobin 13.7 g/dL (12.0-15.0); Lymphocyte # 1.77 X10^3/ul (0.83-4.51); Lymphocyte % 26.3 % (19-41); Mean Corp Hgb Conc 31.6 g/dL (32-36); Mean Corpuscular Hgb 30.6 pg (27.0-32.0); Mean Corpuscular Volume 96.9 fL (81-99); Monocyte# 0.57 X10^3/uL; Monocyte% 8.5 % (0-10); NRBC Flagged by Analyzer 0 % (0-5); Neutrophil # 4.24 X10^3/uL (2.7-7.7); Neutrophil % 63.1 % (47-70); Platelet Count 256 K/mm3 (150-450); RBC Distribution Width CV 13.1 % (11.6-14.6); RBC Distribution Width SD 46.7 fl (35.1-43.9); Red Blood Count 4.48 M/mm3 (4.2-5.4); White Blood Count 6.7 K/mm3 (4.4-11.0)
[2023-03-08 14:56] LABS: Hemoglobin A1c 6.7 % (3.8-5.6)
[2023-03-08 15:00] LABS: ALB/GLOB Ratio 0.9 RATIO (0.9-2.4); AST(SGOT) 14 U/L (15-37); Alanine Aminotransfer ALT/SGPT 22 U/L (13-56); Albumin, Serum 3.6 g/dL (3.2-5.0); Alkaline Phosphatase 93 U/L (45-117); Anion Gap 4 (5-15); BUN 26 mg/dL (7-18); Calcium,Total 9.6 mg/dL (8.5-10.1); Chloride 107 mmol/L (98-107); Cholesterol 187 mg/dL (200); Creatinine, Serum 1.13 mg/dL (0.55-1.02); EST Glomerular Filtration Rate 51 mL/min (>60); Est Glom Filt Rate - Afr Amer 61 mL/min (>60); Globulin 3.8 g/dL (2.2-4.2); Glucose 144 mg/dL (74-106); High Density Lipoprotein 62 mg/dL; Potassium 3.4 mmol/L (3.5-5.1); Protein, Total 7.4 g/dL (6.4-8.2); Sodium Level 140 mmol/L (136-145); Thyroid Stim Hormone (TSH) 2.06 uIU/mL (0.358-3.74); Triglycerides 126 mg/dL; Very Low Density Lipoprotein 25 mg/dL (5-40)
[2023-03-08 15:40] LABS: Vitamin D,25 Hydroxy 49.8 ng/mL
== END | disposition home or self-care (01) ==
PROVIDERS: PCP Family Medicine Geriatric Medicine; Visit Provider Family Medicine Geriatric Medicine
DX: E11.65 Type 2 diabetes mellitus with hyperglycemia (principal); I10 Essential (primary) hypertension; E55.9 Vitamin D deficiency, unspecified; E78.5 Hyperlipidemia, unspecified
CPT/HCPCS: 36415; 80053; 80061; 82306; 83036; 84443; 85025

== ENCOUNTER → 2023-09-11 | Outpatient (CLI) | payer MEDICARE, MEDICAID, SELFPAY ==
[2023-09-11 14:19] LABS: Absolute Lymphocyte Count 2.21 X10^3/uL (0.83-4.51); Absolute Neutrophil Count 3.3 X10^3/uL (2.0-7.7); Basophil# 0.03 X10^3/uL; Basophil% 0.5 % (0-1); Eosinophil# 0.06 X10^3/uL; Hematocrit 40.6 % (37-47); Hemoglobin 13.1 g/dL (12.0-15.0); Lymphocyte # 2.21 X10^3/ul (0.83-4.51); Lymphocyte % 36.5 % (19-41); Mean Corp Hgb Conc 32.3 g/dL (32-36); Mean Corpuscular Volume 96.2 fL (81-99); Mean Platelet Vol. 9.7 fl (6.2-12.0); Monocyte# 0.49 X10^3/uL; Monocyte% 8.1 % (0-10); NRBC Flagged by Analyzer 0 % (0-5); Neutrophil # 3.25 X10^3/uL (2.7-7.7); Neutrophil % 53.6 % (47-70); Platelet Count 254 K/mm3 (150-450); RBC Distribution Width CV 13.9 % (11.6-14.6); RBC Distribution Width SD 49.2 fl (35.1-43.9); Red Blood Count 4.22 M/mm3 (4.2-5.4); White Blood Count 6.1 K/mm3 (4.4-11.0)
[2023-09-11 14:50] LABS: Microalbumin,Random Urine 19.3 mg/L (NO RANGE EST.)
[2023-09-11 14:55] LABS: Vitamin D,25 Hydroxy 48.5 ng/mL
[2023-09-11 15:03] LABS: ALB/GLOB Ratio 0.8 RATIO (0.9-2.4); AST(SGOT) 20 U/L (15-37); Alanine Aminotransfer ALT/SGPT 17 U/L (13-56); Albumin, Serum 3.4 g/dL (3.2-5.0); Alkaline Phosphatase 95 U/L (45-117); Anion Gap 9 (5-15); BUN 21 mg/dL (7-18); BUN/Creat Ratio 17.8 RATIO (10-20); Calcium,Total 9.3 mg/dL (8.5-10.1); Chloride 105 mmol/L (98-107); Cholesterol 161 mg/dL (200); Creatinine, Serum 1.18 mg/dL (0.55-1.02); EST Glomerular Filtration Rate 48 mL/min (>60); Est Glom Filt Rate - Afr Amer 58 mL/min (>60); Glucose 132 mg/dL (74-106); High Density Lipoprotein 53 mg/dL; Potassium 3.5 mmol/L (3.5-5.1); Protein, Total 7.4 g/dL (6.4-8.2); Sodium Level 140 mmol/L (136-145); Thyroid Stim Hormone (TSH) 2.73 uIU/mL (0.358-3.74); Triglycerides 121 mg/dL; Very Low Density Lipoprotein 24 mg/dL (5-40)
[2023-09-11 18:08] LABS: Hemoglobin A1c 6.9 % (3.8-5.6)
== END | disposition home or self-care (01) ==
PROVIDERS: PCP Family Medicine Geriatric Medicine; Visit Provider Family Medicine Geriatric Medicine
DX: I10 Essential (primary) hypertension (principal); E11.65 Type 2 diabetes mellitus with hyperglycemia; E55.9 Vitamin D deficiency, unspecified; E78.5 Hyperlipidemia, unspecified
CPT/HCPCS: 36415; 80053; 80061; 82043; 82306; 83036; 84443; 85025

== ENCOUNTER → 2023-11-01 | Outpatient (CLI) | payer MEDICARE, SELFPAY ==
[2023-11-01 15:25] LABS: Absolute Lymphocyte Count 1.55 X10^3/uL (0.83-4.51); Absolute Neutrophil Count 4.2 X10^3/uL (2.0-7.7); Basophil# 0.03 X10^3/uL; Basophil% 0.5 % (0-1); Eosinophil# 0.04 X10^3/uL; Eosinophils% 0.6 % (0-5); Hematocrit 40.8 % (37-47); Hemoglobin 13.1 g/dL (12.0-15.0); Lymphocyte # 1.55 X10^3/ul (0.83-4.51); Lymphocyte % 23.4 % (19-41); Mean Corp Hgb Conc 32.1 g/dL (32-36); Mean Corpuscular Hgb 31.1 pg (27.0-32.0); Mean Corpuscular Volume 96.9 fL (81-99); Mean Platelet Vol. 10.1 fl (6.2-12.0); Monocyte# 0.81 X10^3/uL; Monocyte% 12.2 % (0-10); NRBC Flagged by Analyzer 0 % (0-5); Neutrophil # 4.18 X10^3/uL (2.7-7.7); Platelet Count 225 K/mm3 (150-450); RBC Distribution Width CV 14.3 % (11.6-14.6); RBC Distribution Width SD 50.9 fl (35.1-43.9); Red Blood Count 4.21 M/mm3 (4.2-5.4); White Blood Count 6.6 K/mm3 (4.4-11.0)
[2023-11-01 15:30] LABS: Color, Urine Yellow (Yellow); Glucose, Dipstick 1000 mg/dl (Normal); Ketone-Dipstick Negative (Negative); Leukocyte Esterase-Dipstick 500 /ul (Negative); Nitrite-Dipstick Negative (Negative); Occult Blood-Urine 10 /ul (Negative); Protein-Dipstick 15 mg/dl (Negative); Specific Gravity, Urine 1.015 (1.002-1.030); Urine Bilirubin Dipstick Negative (Negative); Urine Clarity Clear (Clear); Urine Urobilinogen Normal (Normal)
[2023-11-01 15:53] LABS: ALB/GLOB Ratio 0.8 RATIO (0.9-2.4); AST(SGOT) 17 U/L (15-37); Alanine Aminotransfer ALT/SGPT 22 U/L (13-56); Albumin, Serum 3.3 g/dL (3.2-5.0); Alkaline Phosphatase 86 U/L (45-117); Anion Gap 7 (5-15); BUN 25 mg/dL (7-18); BUN/Creat Ratio 21.6 RATIO (10-20); Calcium,Total 9.8 mg/dL (8.5-10.1); Chloride 105 mmol/L (98-107); Creatinine, Serum 1.16 mg/dL (0.55-1.02); EST Glomerular Filtration Rate 49 mL/min (>60); Est Glom Filt Rate - Afr Amer 59 mL/min (>60); Glucose 126 mg/dL (74-106); Potassium 3.7 mmol/L (3.5-5.1); Protein, Total 7.3 g/dL (6.4-8.2); Sodium Level 139 mmol/L (136-145)
[2023-11-01 16:06] LABS: Bacteria 2+ /hpf (None Seen); Mucous, Urine 1+ /hpf (<or=2+); Squamous Epithelial Cells - UA 0-5 SEEN /hpf (5-10); White Blood Cells 10-25 SEEN /hpf (0-5)
[2023-11-01 16:07] LABS: Red Blood Cells-Urine 0-5 SEEN /hpf (0-5); Transitional Epithelial - Ur 0-5 SEEN /hpf (0-5)
== END | disposition home or self-care (01) ==
LOC: POLAB3 14:41
PROVIDERS: PCP Family Medicine Geriatric Medicine; Visit Provider Family Medicine Geriatric Medicine
DX: I10 Essential (primary) hypertension (principal); R10.9 Unspecified abdominal pain
CPT/HCPCS: 36415; 80053; 81001; 85025

== ENCOUNTER → 2023-11-02 | Outpatient (CLI) | payer MEDICARE, MEDICAID, SELFPAY ==
--- NOTE | 2023-11-02 09:51 | CT_ITS ---
STUDY: CT ABDOMEN AND PELVIS WITH CONTRAST REASON FOR EXAM: Female, 67 years old. abd pain RADIATION DOSAGE (If Supplied By Facility): CTDIvol = ( 17.87 ) mGy, DLP = ( 1147.58 ) mGycm TECHNIQUE: Transaxial images were obtained from the dome of the diaphragm to the symphysis pubis without oral contrast. IV 100mL Isovue-300 was administered. Sagittal and coronal images were reconstructed. Individualized dose optimization techniques were used for this CT. COMPARISON: Comparison is made with prior study dated November 05, 2014. FINDINGS: Minimal increased linear markings at the lung bases suggesting mild basilar scarring and/or atelectasis. The visualized portions of the heart are within normal limits. Normal liver. Normal gallbladder and extrahepatic biliary system. Normal spleen. Normal pancreas. Normal bilateral adrenal glands. Bilateral parapelvic renal cysts. Tiny nonobstructive calculi seen in the lower pole calyx of the left kidney. There is a small hiatal hernia. Normal small intestine. Normal colon. The appendix is visualized and appears normal. There is diffuse atherosclerotic calcification of the abdominal aorta, without a demonstrated aneurysm. Normal inferior vena cava. Normal retroperitoneum. Normal urinary bladder. There is absence of the uterus consistent with a prior hysterectomy. There is a left-sided inguinal hernia containing adipose tissue. Stable focal sclerosis along the superior lateral aspect of the L4 vertebrae. CT/Abdomen/Pelvis WITH Contrast IMPRESSION: Bilateral parapelvic renal cysts. Tiny nonobstructive calculi seen in the lower pole calyx of the left kidney. Electronically Signed: Rigoberto Hanson MD at 10:17 EDT ,
== END | disposition home or self-care (01) ==
LOC: CT 09:50
PROVIDERS: PCP Family Medicine Geriatric Medicine; Referring Provider Family Medicine Geriatric Medicine; Visit Provider Family Medicine Geriatric Medicine
DX: R10.9 Unspecified abdominal pain (principal)
CPT/HCPCS: 74177; Q9967

== ENCOUNTER → 2024-03-13 | Outpatient (CLI) | payer MEDICAID, MEDICARE, SELFPAY ==
[2024-03-13 13:21] LABS: Absolute Lymphocyte Count 2.07 X10^3/uL (0.83-4.51); Absolute Neutrophil Count 3.6 X10^3/uL (2.0-7.7); Basophil# 0.04 X10^3/uL; Basophil% 0.6 % (0-1); Eosinophil# 0.07 X10^3/uL; Eosinophils% 1.1 % (0-5); Hematocrit 43.2 % (37-47); Lymphocyte # 2.07 X10^3/ul (0.83-4.51); Lymphocyte % 32.5 % (19-41); Mean Corp Hgb Conc 32.4 g/dL (32-36); Mean Corpuscular Hgb 31.2 pg (27.0-32.0); Mean Corpuscular Volume 96.2 fL (81-99); Mean Platelet Vol. 9.9 fl (6.2-12.0); Monocyte# 0.62 X10^3/uL; Monocyte% 9.7 % (0-10); NRBC Flagged by Analyzer 0 % (0-5); Neutrophil # 3.55 X10^3/uL (2.7-7.7); Neutrophil % 55.8 % (47-70); Platelet Count 250 K/mm3 (150-450); RBC Distribution Width CV 13.7 % (11.6-14.6); RBC Distribution Width SD 48.6 fl (35.1-43.9); Red Blood Count 4.49 M/mm3 (4.2-5.4); White Blood Count 6.4 K/mm3 (4.4-11.0)
[2024-03-13 13:37] LABS: Hemoglobin A1c 6.7 % (3.8-5.6)
[2024-03-13 13:45] LABS: Vitamin D,25 Hydroxy 37.2 ng/mL
[2024-03-13 13:52] LABS: ALB/GLOB Ratio 0.9 RATIO (0.9-2.4); AST(SGOT) 17 U/L (15-37); Alanine Aminotransfer ALT/SGPT 23 U/L (13-56); Albumin, Serum 3.5 g/dL (3.2-5.0); Alkaline Phosphatase 99 U/L (45-117); Anion Gap 5 (5-15); BUN 17 mg/dL (7-18); BUN/Creat Ratio 13.9 RATIO (10-20); Calcium,Total 9.1 mg/dL (8.5-10.1); Chloride 106 mmol/L (98-107); Cholesterol 184 mg/dL (200); Creatinine, Serum 1.22 mg/dL (0.55-1.02); EST Glomerular Filtration Rate 46 mL/min (>60); Est Glom Filt Rate - Afr Amer 56 mL/min (>60); Glucose 150 mg/dL (74-106); High Density Lipoprotein 64 mg/dL; Potassium 3.9 mmol/L (3.5-5.1); Protein, Total 7.5 g/dL (6.4-8.2); Sodium Level 140 mmol/L (136-145); Triglycerides 154 mg/dL; Very Low Density Lipoprotein 31 mg/dL (5-40)
== END | disposition home or self-care (01) ==
PROVIDERS: PCP Family Medicine Geriatric Medicine; Visit Provider Family Medicine Geriatric Medicine
DX: E11.65 Type 2 diabetes mellitus with hyperglycemia (principal); I10 Essential (primary) hypertension; E78.5 Hyperlipidemia, unspecified; E55.9 Vitamin D deficiency, unspecified
CPT/HCPCS: 36415; 80053; 80061; 82306; 83036; 84443; 85025

== ENCOUNTER → 2024-09-11 | Outpatient (CLI) | payer MEDICAID, MEDICARE, SELFPAY ==
[2024-09-11 13:21] LABS: Hematocrit 40.7 % (37-47); Hemoglobin 13.6 g/dL (12.0-15.0); Immature Granulocytes Count 0.020 X10^3/uL (0.0-0.0); Mean Corp Hgb Conc 33.4 g/dL (32-36); Mean Corpuscular Volume 95.1 fL (81-99); Mean Platelet Vol. 9.9 fl (6.2-12.0); NRBC Flagged by Analyzer 0 % (0-5); Platelet Count 237 K/mm3 (150-450); RBC Distribution Width CV 13.5 % (11.6-14.6); RBC Distribution Width SD 47.7 fl (35.1-43.9); Red Blood Count 4.28 M/mm3 (4.2-5.4); White Blood Count 7.3 K/mm3 (4.4-11.0)
--- NOTE | 2024-09-11 13:38 | RAD_ITS ---
EXAM: XR Cervical Spine, 4 or 5 Views CLINICAL INDICATION: NECK PAIN TECHNIQUE: Frontal, lateral and bilateral oblique views of the cervical spine. COMPARISON: No relevant prior studies available. FINDINGS: VERTEBRAE: Degenerative facet arthropathy throughout the cervical spine. Normal alignment. No acute fracture. DISC SPACES: Degenerative disc disease throughout the cervical spine. SOFT TISSUES: Unremarkable. RAD/Cerv Spine 2 or 3 Views IMPRESSION: 1. No acute fracture. 2. Degenerative changes of the cervical spine as described. Reading Location: [id number]
--- NOTE | 2024-09-11 13:38 | RAD_ITS ---
EXAM: XR Left Shoulder Complete, 2 or More Views CLINICAL INDICATION: ROTATOR CUFF TECHNIQUE: Two or more views of the left shoulder. COMPARISON: No relevant prior studies available. FINDINGS: BONES/JOINTS: Moderate degenerative change of the acromioclavicular glenohumeral joints. No acute fracture. No dislocation. SOFT TISSUES: Soft tissue swelling. RAD/Shoulder min 2 Views IMPRESSION: Degenerative changes as above. Reading Location: [id number]
[2024-09-11 14:42] LABS: AST(SGOT) 20 U/L (<=31); Alanine Aminotransfer ALT/SGPT 15 U/L (<=34); Albumin, Serum 4.0 g/dL (3.4-4.8); Alkaline Phosphatase 105 U/L (35-104); Anion Gap 13 (5-15); BUN 20 mg/dL (4-19); BUN/Creat Ratio 15.9 RATIO (10-20); Calcium,Total 9.5 mg/dL (7.6-11.0); Carbon Dioxide 23.8 mmol/L (21.0-32.0); Chloride 103 mmol/L (98-108); Cholesterol 181 mg/dL (<=200); Globulin 3.1 g/dL (2.2-4.2); Glucose 148 mg/dL (70-99); Low Density Lipoprotein Calc. 96 mg/dL; Potassium 3.9 mmol/L (3.3-5.1); Triglycerides 161 mg/dL; Very Low Density Lipoprotein 32 mg/dL (5-40); Vitamin D,25 Hydroxy 33.3 ng/mL (30-100); cholesterol:hdl ratio screen 3.43
[2024-09-11 21:05] LABS: Xtra Tube Kwok EXTRA TUBE
== END | disposition home or self-care (01) ==
LOC: POLAB3 13:04
PROVIDERS: PCP Family Medicine Geriatric Medicine; Visit Provider Family Medicine Geriatric Medicine
DX: M54.2 Cervicalgia (principal); E11.65 Type 2 diabetes mellitus with hyperglycemia; R07.9 Chest pain, unspecified; Z12.31 Encounter for screening mammogram for malignant neoplasm of breast; E78.5 Hyperlipidemia, unspecified; I10 Essential (primary) hypertension; E55.9 Vitamin D deficiency, unspecified
CPT/HCPCS: 36415; 72040; 73030; 80053; 80061; 82306; 83036; 84443; 85025

== ENCOUNTER → 2024-09-15 | Outpatient (CLI) | payer MEDICARE, MEDICAID, SELFPAY ==
[2024-09-15 17:11] LABS: Creatinine, Urine (random) 111.00 mg/dL (28.00-217.00); Microalbumin,Random Urine < 12.0 mg/L (<20 mg/L)
--- OUTSIDE RECORDS SUMMARY | 2024-09-16 10:41 | XMS RPT_ITS | CCD ---
Author Organization [facility] Care Team Providers Care Goodwill Ambassador Name Role Phone Mat BUENROSTRO, Dirk White Unavailable [phone] Francisco, Marquis Chi Attending Unavailable Francisco, Marquis Chi Primary Care Unavailable Francisco, Marquis Chi Attending Unavailable Francisco, Marquis Chi Primary Care Unavailable Francisco, Marquis Chi Attending Unavailable Francisco, Marquis Chi Primary Care Unavailable Francisco, Marquis Chi Attending Unavailable Francisco, Marquis Chi Primary Care Unavailable Francisco, Marquis Chi Attending Unavailable Francisco, Marquis Chi Referring Unavailable Francisco, Marquis Chi Primary Care Unavailable Medications Current Medications Medication Drug Class(es) Dates Sig (Normalized) Sig (Original) hydroCHLOROthiazide 12.5 mg / losartan potassium 100 mg oral tablet (9 sources) Thiazide Diuretic, Angiotensin 2 Receptor Miguel Start: 11-04-2018 Losartan-Hydroc hlorothiazide Active PO November 03, 2018 11:00pm metoprolol tartrate 25 mg oral tablet (9 sources) beta-Adrenergic Miguel Start: 11-04-2018 Metoprolol Tartrate Active PO November 03, 2018 11:00pm Completed/Discontinued Medications Medication Drug Class(es) Dates Sig (Normalized) Sig (Original) aspirin 81 mg delayed release oral tablet (1 source) Platelet Aggregation Inhibitor, Nonsteroidal Anti-inflammatory Drug Start: 04-10-2019 ASPIRIN 81 MG TBEC ASPIRIN [id number] Dirk Rivero MD atorvastatin 40 mg oral tablet (10 sources) HMG-CoA Reductase Inhibitor Start: 04-10-2019 LIPITOR 40 MG TABS ATORVASTATIN CALCIUM [id number] Dirk Rivero MD Start: 11-04-2018 Atorvastatin A ctive PO November 03, 2018 11:00pm Cholecalciferol (1 source) Vitamin D Start: 04-10-2019 VITAMIN D TABL ET CHOLECALCIFEROL TABS Dirk Rivero MD diclofenac sodium 0.01 mg/mg topical gel (1 source) Nonsteroidal Anti-inflammatory Drug Start: 04-10-2019 End: 05-09-2019 VOLTAREN 1 % GEL Apply 2 grams to affected area twice per day DICLOFENAC SODIUM [id number] Dirk Rivero MD losartan potassium 25 mg oral tablet (1 source) Angiotensin 2 Receptor Miguel Start: 04-10-2019 LOSARTAN POTASSIUM 2 5 MG TABS LOSARTAN POTASSIUM [id number] Dirk Rivero MD metFORMIN hydrochloride 1000 mg oral tablet (10 sources) Biguanide Start: 04-10-2019 METFORMIN HCL 1000 MG TABS METFORMIN HCL [id number] Dirk Rivero MD Start: 11-04-2018 Metformin Acti ve PO 60 November 03, 2018 11:00pm Problems Active Problems Problem Classification Problem Date Documented Date Episodic/Chronic Diabetes mellitus with complications (2 sources) Type 2 diabetes mellitus with hyperglycemia; Translations: [Type 2 diabetes mellitus with hyperglycemia] Onset: 04-03-2024 Chronic Diabetes mellitus without complication (1 source) Diabetes mellitus; Translations: [Type 2 diabetes mellitus without complications] Onset: 04-10-2019 04-10-2019 Chronic Disorders of lipid metabolism (1 source) Hyperlipidemia, unspecified; Translations: [Hyperlipidemia, unspecified] Onset: 09-11-2024 Chronic Essential hypertension (2 sources) Essential (primary) hypertension; Translations: [Essential (primary) hypertension] Onset: 11-22-2023 Chronic Nutritional deficiencies (1 source) Vitamin D deficiency, unspecified; Translations: [Vitamin D deficiency, unspecified] Onset: 09-11-2024 Chronic Osteoarthritis (2 sources) Localized, primary osteoarthritis of the hand; Translations: [Primary osteoarthritis, left hand] Onset: 04-10-2019 04-10-2019 Chronic Other non-traumatic joint disorders (2 sources) Finger joint stiff; Translations: [Stiffness of right hand, not elsewhere classified] Onset: 04-10-2019 04-10-2019 Episodic Residual codes; unclassified (9 sources) Edema of right lower limb; Translations: [Localized edema] 11-04-2018 Episodic Sprains and strains (9 sources) Sprain of ankle; Translations: [Sprain of unspecified ligament of right ankle, initial encounter] 04-25-2021 Episodic Past or Other Problems Problem Classification Problem Date Documented Da te Episodic/Chronic Abdominal pain (1 source) Unspecified abdominal pain; Translations: [Unspecified abdominal pain] Onset: 11-26-2023 Episodic Unclassified (1 source) Problem Results Test Name Value Interpretation Reference Range Facility CBC W/Diff, Automatedon 08-20 Absolute Lymph 2.33 X10 3/uL Normal 0.83-4.51 [facility] Comment on above: Performed By: #### L 501.9985, L501.9520, L500.4100, L500.4050, L100.0100, L506.1001 #### [facility] Laboratory [address] [place], [address] Absolute Neut 4.1 X10 3/uL Normal 2.0-7.7 [facility] Comment on above: Performed By: #### L 501.9985, L501.9520, L500.4100, L500.4050, L100.0100, L506.1001 #### [facility] [address] [place], [address] Basophils/100 WBC (Bld) 0.6 % Normal 0-1 [facility] Comment on above: Performed By: #### L 501.9985, L501.9520, L500.4100, L500.4050, L100.0100, L506.1001 #### [facility] [address] [place], [address] Eosinophils/100 WBC (Bld) 1.0 % Normal 0-5 [facility] Comment on above: Performed By: #### L 501.9985, L501.9520, L500.4100, L500.4050, L100.0100, L506.1001 #### [facility] [address] [place], [address] Erythrocyte distribution width (RBC) [Ratio] 13.5 % Normal 11.6-14.6 [facility] Comment on above: Performed By: #### L 501.9985, L501.9520, L500.4100, L500.4050, L100.0100, L506.1001 #### [facility] [address] [place], [address] Hematocrit (Bld) [Volume fraction] 40.7 % Normal 37-47 [facility] Comment on above: Performed By: #### L 501.9985, L501.9520, L500.4100, L500.4050, L100.0100, L506.1001 #### [facility] [address] [place], [address] Hemoglobin (Bld) [Mass/Vol] 13.6 g/dL Normal 12.0-15.0 [facility] Comment on above: Performed By: #### L 501.9985, L501.9520, L500.4100, L500.4050, L100.0100, L506.1001 #### [facility] [address] [place], [address] IG% 0.300 Normal 0.0-0.9 [facility] Comment on above: Result Comment: IG% - Immature Granulocytes (promyelocytes, myelocytes and metamyelocytes) > 1% indicates that a LEFT SHIFT is Present. Performed By: #### L 501.9985, L501.9520, L500.4100, L500.4050, L100.0100, L506.1001 #### [facility] [address] [place], [address] Lymphocytes/100 WBC (Bld) 32.1 % Normal 19-41 [facility] Comment on above: Performed By: #### L 501.9985, L501.9520, L500.4100, L500.4050, L100.0100, L506.1001 #### [facility] [address] [place], [address] MCH (RBC) [Entitic mass] 31.8 pg Normal 27.0-32.0 [facility] Comment on above: Performed By: #### L 501.9985, L501.9520, L500.4100, L500.4050, L100.0100, L506.1001 #### [facility] [address] [place], [address] MCHC (RBC) [Mass/Vol] 33.4 g/dL Normal 32-36 [facility] Comment on above: Performed By: #### L 501.9985, L501.9520, L500.4100, L500.4050, L100.0100, L506.1001 #### [facility] [address] [place], [address] MCV (RBC) [Entitic vol] 95.1 fL Normal 81-99 [facility] Comment on above: Performed By: #### L 501.9985, L501.9520, L500.4100, L500.4050, L100.0100, L506.1001 #### [facility] [address] [place], [address] Monocytes/100 WBC (Bld) 9.5 % Normal 0-10 [facility] Comment on above: Performed By: #### L 501.9985, L501.9520, L500.4100, L500.4050, L100.0100, L506.1001 #### [facility] [address] [place], [address] Neutrophils/100 WBC (Bld) 56.5 % Normal 47-70 [facility] Comment on above: Performed By: #### L 501.9985, L501.9520, L500.4100, L500.4050, L100.0100, L506.1001 #### [facility] [address] [place], [address] Nucleated RBC (Bld) [#/Vol] 0 10*3/uL Normal 0-5 [facility] Comment on above: Performed By: #### L 501.9985, L501.9520, L500.4100, L500.4050, L100.0100, L506.1001 #### [facility] [address] [place], [address] Platelet mean volume (Bld) [Entitic vol] 9.9 fL Normal 6.2-12.0 [facility] Comment on above: Performed By: #### L 501.9985, L501.9520, L500.4100, L500.4050, L100.0100, L506.1001 #### [facility] [address] [place], [address] Platelets (Bld) [#/Vol] 237 10*3/uL Normal 150-450 [facility] Comment on above: Performed By: #### L 501.9985, L501.9520, L500.4100, L500.4050, L100.0100, L506.1001 #### [facility] [address] [place], [address] RBC (Bld) [#/Vol] 4.28 10*6/uL Normal 4.2-5.4 [facility] Comment on above: Performed By: #### L 501.9985, L501.9520, L500.4100, L500.4050, L100.0100, L506.1001 #### [facility] [address] [place], [address] RDW SD 47.7 fl High 35.1-43.9 [facility] Comment on above: Performed By: #### L 501.9985, L501.9520, L500.4100, L500.4050, L100.0100, L506.1001 #### [facility] [address] [place], [address] WBC (Bld) [#/Vol] 7.3 10*3/uL Normal 4.4-11.0 [facility] Comment on above: Performed By: #### L 501.9985, L501.9520, L500.4100, L500.4050, L100.0100, L506.1001 #### [facility] [address] [place], [id number] Cerv Spine 2 or 3 Viewson Cerv Spine 2 or 3 Views [facility] Imaging Services [address] [place] [id number] Cerv Spine 2 or 3 Views MR#: [id number] Acct: [id number] Name: JEYSON DAVE Rep #: [id number] : 1955 F 68 From: Jeff Francisco MD PCP: Dr. Marquis Singh MD Status: REG CLI Study: Cerv Spine 2 or 3 Views Date of Exam: 09/11/24 Exam# [id number] Ordering Dr: Marquis Singh MD EXAM: XR Cervical Spine, 4 or 5 Views CLINICAL INDICATION: NECK PAIN TECHNIQUE: Frontal, lateral and bilateral oblique views of the cervical spine. COMPARISON: No relevant prior studies available. FINDINGS: VERTEBRAE: Degenerative facet arthropathy throughout the cervical spine. Normal alignment. No acute fracture. DISC SPACES: Degenerative disc disease throughout the cervical spine. SOFT TISSUES: Unremarkable. RAD/Cerv Spine 2 or 3 Views IMPRESSION: 1. No acute fracture. 2. Degenerative changes of the cervical spine as described. Reading Location: [id number] CC: Dr. Marquis Singh MD Business Mail Entry Clerk: Signed Normal [facility] Comprehensive Metabolic Prof ilon 09-11-2024 Albumin [Mass/Vol] 4.0 g/dL Normal 3.4-4.8 [facility] Comment on above: Performed By: #### L 501.9985, L501.9520, L500.4100, L500.4050, L100.0100, L506.1001 #### [facility] [address] [place], [address] Albumin/Globulin [Mass ratio] 1.3 {ratio} Normal 0.9-2.4 [facility] Comment on above: Performed By: #### L 501.9985, L501.9520, L500.4100, L500.4050, L100.0100, L506.1001 #### [facility] [address] [place], [address] ALK PHOS 105 U/L High 35-104 [facility] Comment on above: Performed By: #### L 501.9985, L501.9520, L500.4100, L500.4050, L100.0100, L506.1001 #### [facility] [address] [place], [address] ALT [Catalytic activity/Vol] 15 U/L Normal <=34 [facility] Comment on above: Performed By: #### L 501.9985, L501.9520, L500.4100, L500.4050, L100.0100, L506.1001 #### [facility] [address] [place], [address] AST [Catalytic activity/Vol] 20 U/L Normal <=31 [facility] Comment on above: Performed By: #### L 501.9985, L501.9520, L500.4100, L500.4050, L100.0100, L506.1001 #### [facility] [address] [place], [address] Bilirubin [Mass/Vol] 0.51 mg/dL Normal 0.00-1.30 [facility] Comment on above: Performed By: #### L 501.9985, L501.9520, L500.4100, L500.4050, L100.0100, L506.1001 #### [facility] [address] [place], [address] BUN/CRE 15.9 RATIO Normal 10-20 [facility] Comment on above: Performed By: #### L 501.9985, L501.9520, L500.4100, L500.4050, L100.0100, L506.1001 #### [facility] [address] [place], [address] Calcium [Mass/Vol] 9.5 mg/dL Normal 7.6-11.0 [facility] Comment on above: Performed By: #### L 501.9985, L501.9520, L500.4100, L500.4050, L100.0100, L506.1001 #### [facility] [address] [place], [address] Chloride [Moles/Vol] 103 mmol/L Normal 98-108 [facility] Comment on above: Performed By: #### L 501.9985, L501.9520, L500.4100, L500.4050, L100.0100, L506.1001 #### [facility] [address] [place], [address] CO2 [Moles/Vol] 23.8 mmol/L Normal 21.0-32.0 [facility] Comment on above: Performed By: #### L 501.9985, L501.9520, L500.4100, L500.4050, L100.0100, L506.1001 #### [facility] [address] [place], [address] Creatinine [Mass/Vol] 1.27 mg/dL High 0.70-1.20 [facility] Comment on above: Performed By: #### L 501.9985, L501.9520, L500.4100, L500.4050, L100.0100, L506.1001 #### [facility] [address] [place], [address] GAP 13 Normal 5-15 [facility] Comment on above: Performed By: #### L 501.9985, L501.9520, L500.4100, L500.4050, L100.0100, L506.1001 #### [facility] [address] [place], [address] GFR/1.73 sq M.predicted among non-blacks MDRD (S/P/Bld) [Vol rate/Area] 45 mL/min/{1.73_m2} Low >60 [facility] Comment on above: Result Comment: mL/m in/1.73m2 CKD-EPI Creatinine Equation (2020) Performed By: #### L 501.9985, L501.9520, L500.4100, L500.4050, L100.0100, L506.1001 #### [facility] [address] [place], [address] Globulin (S) [Mass/Vol] 3.1 g/dL Normal 2.2-4.2 [facility] Comment on above: Performed By: #### L 501.9985, L501.9520, L500.4100, L500.4050, L100.0100, L506.1001 #### [facility] [address] [place], [address] Glucose [Mass/Vol] 148 mg/dL High 70-99 [facility] Comment on above: Performed By: #### L 501.9985, L501.9520, L500.4100, L500.4050, L100.0100, L506.1001 #### [facility] [address] [place], [address] Potassium [Moles/Vol] 3.9 mmol/L Normal 3.3-5.1 [facility] Comment on above: Performed By: #### L 501.9985, L501.9520, L500.4100, L500.4050, L100.0100, L506.1001 #### [facility] [address] [place], [address] Sodium [Moles/Vol] 141 mmol/L Normal 133-145 [facility] Comment on above: Performed By: #### L 501.9985, L501.9520, L500.4100, L500.4050, L100.0100, L506.1001 #### [facility] [address] [place], [address] T PROT 7.1 g/dL Normal 5.9-8.4 [facility] Comment on above: Performed By: #### L 501.9985, L501.9520, L500.4100, L500.4050, L100.0100, L506.1001 #### [facility] [address] [place], [address] Urea nitrogen [Mass/Vol] 20 mg/dL High 4-19 [facility] Comment on above: Performed By: #### L 501.9985, L501.9520, L500.4100, L500.4050, L100.0100, L506.1001 #### [facility] [address] [place], [address] Hemoglobin A1con 09-11-2024 HbA1c (Bld) [Mass fraction] 7.2 % High <=5.6 [facility] Comment on above: Result Comment: Norm al < 5.7 % Prediabetic 5.7 - 6.4 % Diabetic >or= 6.5 % Please note range changes. Performed By: #### L 501.9985, L501.9520, L500.4100, L500.4050, L100.0100, L506.1001 #### [facility] [address] [place], [address] Lipid Profileon 09-11-2024 CHOL:HDL 3.43 Normal [facility] Comment on above: Performed By: #### L 501.9985, L501.9520, L500.4100, L500.4050, L100.0100, L506.1001 #### [facility] [address] [place] [place], [address] Cholesterol [Mass/Vol] 181 mg/dL Normal <=200 [facility] Comment on above: Result Comment: Chol esterol level, Desirable <200 mg/dL Borderline high cholesterol 200-239 mg/dL High cholesterol >=240 mg/dL Recommendations of the NCEP Adult Treatment Panel for the following risk-cutoff thresholds for the [place] population. Performed By: #### L 501.9985, L501.9520, L500.4100, L500.4050, L100.0100, L506.1001 #### [facility] [address] [place], [address] Cholesterol in HDL [Mass/Vol] 53 mg/dL Normal [facility] Comment on above: Result Comment: Jami onal Cholesterol Education Program (NCEP) guidelines: <40 mg/dL: Low HDL-cholesterol (major risk factor for CHD) >= 60 mg/dL: High HDL-cholesterol (negative risk factor for CHD) HDL-cholesterol is affected by a number of factors, e.g. smoking, exercise, hormones, sex and age. Performed By: #### L 501.9985, L501.9520, L500.4100, L500.4050, L100.0100, L506.1001 #### [facility] [address] [place], [address] Cholesterol in LDL [Mass/Vol] 96 mg/dL Normal [facility] Comment on above: Result Comment: Bord pcoiqi=033-891 mg/dL Higher Lbda=807 mg/dL or greater Performed By: #### L 501.9985, L501.9520, L500.4100, L500.4050, L100.0100, L506.1001 #### [facility] [address] [place], [address] Cholesterol in VLDL [Mass/Vol] 32 mg/dL Normal 5-40 [facility] Comment on above: Performed By: #### L 501.9985, L501.9520, L500.4100, L500.4050, L100.0100, L506.1001 #### [facility] [address] [place], [address] Triglyceride [Mass/Vol] 161 mg/dL Normal [facility] Comment on above: Result Comment: The drugs N-Acetylcysteine and Metamizole may falsely depress this assay. Normal range: <150 mg/dL Borderline High: 150-199 mg/dL High: 200-499 mg/dL Very High: >500 mg/dL Performed By: #### L 501.9985, L501.9520, L500.4100, L500.4050, L100.0100, L506.1001 #### [facility] [address] [place], [address] Shoulder min 2 Viewson 09-11 Shoulder min 2 Views [facility] Imaging Services [address] [place] [address] Shoulder min 2 Views MR#: [id number] Acct: [id number] Name: JEYSON DAVE Rep #: [id number] : 1955 F 68 From: Jeff Francisco MD PCP: Dr. Marquis Singh MD Status: [facility] CLI Study: Shoulder min 2 Views Date of Exam: 09/11/24 Exam# [id number] Ordering Dr: Marquis Singh MD EXAM: XR Left Shoulder Complete, 2 or More Views CLINICAL INDICATION: ROTATOR CUFF TECHNIQUE: Two or more views of the left shoulder. COMPARISON: No relevant prior studies available. FINDINGS: BONES/JOINTS: Moderate degenerative change of the acromioclavicular glenohumeral joints. No acute fracture. No dislocation. SOFT TISSUES: Soft tissue swelling. RAD/Shoulder min 2 Views IMPRESSION: Degenerative changes as above. Reading Location: [id number] CC: Dr. Marquis Singh MD Business Mail Entry Clerk: Signed Normal [facility] Thyroid Stim Hormone (TSH)on 09-11-2024 TSH 2.250 uIU/mL Normal 0.300-4.200 [facility] Comment on above: Performed By: #### L 501.9985, L501.9520, L500.4100, L500.4050, L100.0100, L506.1001 #### [facility] [address] [place], [address] Vitamin D,25 Hydroxyon 09-11 Vitamin D 25-OH 33.3 ng/mL Normal 30-100 [facility] Comment on above: Result Comment: Estelita min D Status Deficiency: <20 ng/mL (50nmol/L) Insufficiency: 20-30 ng/mL (50-75 nmol/L) Sufficiency: 30-100 ng/mL (75-250 nmol/L) Toxicity: >100 ng/mL (>250 nmol/L) Performed By: #### L 501.9985, L501.9520, L500.4100, L500.4050, L100.0100, L506.1001 #### [facility] [address] [place], [address] CBC W/Diff, Automatedon 01-2 Absolute Lymph 2.07 X10 3/uL Normal 0.83-4.51 [facility] Comment on above: Performed By: #### L 500.4050, L501.9985, L100.0100, L500.4100, L506.1000, L501.9520 #### [facility] [address] [place], [address] Absolute Neut 3.6 X10 3/uL Normal 2.0-7.7 [facility] Comment on above: Performed By: #### L 500.4050, L501.9985, L100.0100, L500.4100, L506.1000, L501.9520 #### [facility] [address] [place], [address] Basophils/100 WBC (Bld) 0.6 % Normal 0-1 [facility] Comment on above: Performed By: #### L 500.4050, L501.9985, L100.0100, L500.4100, L506.1000, L501.9520 #### [facility] [address] [place], [address] Eosinophils/100 WBC (Bld) 1.1 % Normal 0-5 [facility] Comment on above: Performed By: #### L 500.4050, L501.9985, L100.0100, L500.4100, L506.1000, L501.9520 #### [facility] [address] [place], [address] Erythrocyte distribution width (RBC) [Ratio] 13.7 % Normal 11.6-14.6 [facility] Comment on above: Performed By: #### L 500.4050, L501.9985, L100.0100, L500.4100, L506.1000, L501.9520 #### [facility] [address] [place], [address] Hematocrit (Bld) [Volume fraction] 43.2 % Normal 37-47 [facility] Comment on above: Performed By: #### L 500.4050, L501.9985, L100.0100, L500.4100, L506.1000, L501.9520 #### [facility] [address] [place], [address] Hemoglobin (Bld) [Mass/Vol] 14.0 g/dL Normal 12.0-15.0 [facility] Comment on above: Performed By: #### L 500.4050, L501.9985, L100.0100, L500.4100, L506.1000, L501.9520 #### [facility] [address] [place], [address] IG% 0.300 Normal 0.0-0.9 [facility] Comment on above: Result Comment: IG% - Immature Granulocytes (promyelocytes, myelocytes and metamyelocytes) > 1% indicates that a LEFT SHIFT is Present. Performed By: #### L 500.4050, L501.9985, L100.0100, L500.4100, L506.1000, L501.9520 #### [facility] [address] [place], [address] Lymphocytes/100 WBC (Bld) 32.5 % Normal 19-41 [facility] Comment on above: Performed By: #### L 500.4050, L501.9985, L100.0100, L500.4100, L506.1000, L501.9520 #### [facility] [address] [place], [address] MCH (RBC) [Entitic mass] 31.2 pg Normal 27.0-32.0 [facility] Comment on above: Performed By: #### L 500.4050, L501.9985, L100.0100, L500.4100, L506.1000, L501.9520 #### [facility] [address] [place], [address] MCHC (RBC) [Mass/Vol] 32.4 g/dL Normal 32-36 [facility] Comment on above: Performed By: #### L 500.4050, L501.9985, L100.0100, L500.4100, L506.1000, L501.9520 #### [facility] [address] [place], [address] MCV (RBC) [Entitic vol] 96.2 fL Normal 81-99 [facility] Comment on above: Performed By: #### L 500.4050, L501.9985, L100.0100, L500.4100, L506.1000, L501.9520 #### [facility] [address] [place], [address] Monocytes/100 WBC (Bld) 9.7 % Normal 0-10 [facility] Comment on above: Performed By: #### L 500.4050, L501.9985, L100.0100, L500.4100, L506.1000, L501.9520 #### [facility] [address] [place], [address] Neutrophils/100 WBC (Bld) 55.8 % Normal 47-70 [facility] Comment on above: Performed By: #### L 500.4050, L501.9985, L100.0100, L500.4100, L506.1000, L501.9520 #### [facility] [address] [place], [address] Nucleated RBC (Bld) [#/Vol] 0 10*3/uL Normal 0-5 [facility] Comment on above: Performed By: #### L 500.4050, L501.9985, L100.0100, L500.4100, L506.1000, L501.9520 #### [facility] [address] [place], [address] Platelet mean volume (Bld) [Entitic vol] 9.9 fL Normal 6.2-12.0 [facility] Comment on above: Performed By: #### L 500.4050, L501.9985, L100.0100, L500.4100, L506.1000, L501.9520 #### [facility] [address] [place], [address] Platelets (Bld) [#/Vol] 250 10*3/uL Normal 150-450 [facility] Comment on above: Performed By: #### L 500.4050, L501.9985, L100.0100, L500.4100, L506.1000, L501.9520 #### [facility] [address] [place], [address] RBC (Bld) [#/Vol] 4.49 10*6/uL Normal 4.2-5.4 [facility] Comment on above: Performed By: #### L 500.4050, L501.9985, L100.0100, L500.4100, L506.1000, L501.9520 #### [facility] [address] [place], [address] RDW SD 48.6 fl High 35.1-43.9 [facility] Comment on above: Performed By: #### L 500.4050, L501.9985, L100.0100, L500.4100, L506.1000, L501.9520 #### [facility] [address] [place], [address] WBC (Bld) [#/Vol] 6.4 10*3/uL Normal 4.4-11.0 [facility] Comment on above: Performed By: #### L 500.4050, L501.9985, L100.0100, L500.4100, L506.1000, L501.9520 #### [facility] [address] [place] [place], [address] Comprehensive Metabolic Prof [facility] 03-13-2024 Albumin [Mass/Vol] 3.5 g/dL Normal 3.2-5.0 [facility] Comment on above: Performed By: #### L 500.4050, L100.0100, L400.0001 #### [facility] [address] [place], [address] Albumin/Globulin [Mass ratio] 0.9 {ratio} Normal 0.9-2.4 [facility] Comment on above: Performed By: #### L 500.4050, L100.0100, L400.0001 #### [facility] [address] [place], [address] ALK P 99 U/L Normal 45-117 [facility] Comment on above: Performed By: #### L 500.4050, L100.0100, L400.0001 #### [facility] [address] [place], [address] ALT [Catalytic activity/Vol] 23 U/L Normal 13-56 [facility] Comment on above: Performed By: #### L 500.4050, L100.0100, L400.0001 #### [facility] [address] [place], [address] AST [Catalytic activity/Vol] 17 U/L Normal 15-37 [facility] Comment on above: Performed By: #### L 500.4050, L100.0100, L400.0001 #### [facility] [address] [place], [address] Bilirubin [Mass/Vol] 0.50 mg/dL Normal 0.20-1.00 [facility] Comment on above: Result Comment: For patients on eltrombopag therapy, use of Dimension Ch[place]is TBIL is not recommended. Performed By: #### L 500.4050, L100.0100, L400.0001 #### [facility] [address] [place], [address] BUN/CRE 13.9 RATIO Normal 10-20 [facility] Comment on above: Performed By: #### L 500.4050, L100.0100, L400.0001 #### [facility] [address] [place], [address] CA,Total 9.1 mg/dL Normal 8.5-10.1 [facility] Comment on above: Performed By: #### L 500.4050, L100.0100, L400.0001 #### [facility] [address] [place], [address] Chloride [Moles/Vol] 106 mmol/L Normal 98-107 [facility] Comment on above: Performed By: #### L 500.4050, L100.0100, L400.0001 #### [facility] [address] [place], [address] CO2 [Moles/Vol] 29.0 mmol/L Normal 21.0-32.0 [facility] Comment on above: Performed By: #### L 500.4050, L100.0100, L400.0001 #### [facility] [address] [place], [address] Creatinine [Mass/Vol] 1.22 mg/dL High 0.55-1.02 [facility] Comment on above: Result Comment: The validity of the calculated GFR GFRAA in patients over 70 years has not been determined. Clinical correlation is essential. Performed By: #### L 500.4050, L100.0100, L400.0001 #### [facility] [address] [place], [address] EST GFR - AA 56 mL/min Low >60 [facility] Comment on above: Result Comment: Afri can Vincentian GFR Calc Performed By: #### L 500.4050, L100.0100, L400.0001 #### [facility] [address] [place], [address] GAP 5 Normal 5-15 [facility] Comment on above: Performed By: #### L 500.4050, L100.0100, L400.0001 #### [facility] [address] [place], [address] GFR/1.73 sq M.predicted among non-blacks MDRD (S/P/Bld) [Vol rate/Area] 46 mL/min/{1.73_m2} Low >60 [facility] Comment on above: Result Comment: Non- GFR Calc Performed By: #### L 500.4050, L100.0100, L400.0001 #### [facility] [address] [place], [address] Globulin (S) [Mass/Vol] 4.0 g/dL Normal 2.2-4.2 [facility] Comment on above: Performed By: #### L 500.4050, L100.0100, L400.0001 #### [facility] [address] [place], [address] Glucose [Mass/Vol] 150 mg/dL High 74-106 [facility] Comment on above: Result Comment: Fast ing Glucose result greater than or equal to 126 mg/dL suggests DIABETES MELLITUS per A.D.A. criteria. Performed By: #### L 500.4050, L100.0100, L400.0001 #### [facility] [address] [place], [address] Potassium [Moles/Vol] 3.9 mmol/L Normal 3.5-5.1 [facility] Comment on above: Performed By: #### L 500.4050, L100.0100, L400.0001 #### [facility] [address] [place], [address] Sodium [Moles/Vol] 140 mmol/L Normal 136-145 [facility] Comment on above: Performed By: #### L 500.4050, L100.0100, L400.0001 #### [facility] [address] [place], [address] T PROT 7.5 g/dL Normal 6.4-8.2 [facility] Comment on above: Performed By: #### L 500.4050, L100.0100, L400.0001 #### [facility] [address] [place], [address] Urea nitrogen [Mass/Vol] 17 mg/dL Normal 7-18 [facility] Comment on above: Performed By: #### L 500.4050, L100.0100, L400.0001 #### [facility] [address] [place], [address] Hemoglobin A1con 03-13-2024 HbA1c (Bld) [Mass fraction] 6.7 % High 3.8-5.6 [facility] Comment on above: Result Comment: Norm al < 5.7 % Prediabetic 5.7 - 6.4 % Diabetic >or= 6.5 % Please note range changes. Performed By: #### L 500.4050, L100.0100, L400.0001 #### [facility] [address] [place], [address] Lipid Profileon 03-13-2024 Cholesterol [Mass/Vol] 184 mg/dL Normal 200 [facility] Comment on above: Result Comment: <200 mg/dL Desirable 200-240 mg/dL Borderline >240 mg/dL High Risk Performed By: #### L 500.4050, L100.0100, L400.0001 #### [facility] [address] [place], [address] Cholesterol in HDL [Mass/Vol] 64 mg/dL Normal [facility] Comment on above: Result Comment: The drugs N-Acetylcysteine and Metamizole may falsely depress this assay. Reference Range HDL <40 mg/dL Low HDL Cholesterol HDL >or= 60 mg/dL High HDL Cholesterol Performed By: #### L 500.4050, L100.0100, L400.0001 #### [facility] [address] [place], [address] Cholesterol in LDL [Mass/Vol] 89 mg/dL Normal 0-130 [facility] Comment on above: Performed By: #### L 500.4050, L100.0100, L400.0001 #### [facility] [address] [place], [address] Cholesterol in VLDL [Mass/Vol] 31 mg/dL Normal 5-40 [facility] Comment on above: Performed By: #### L 500.4050, L100.0100, L400.0001 #### [facility] [address] [place], [address] Triglyceride [Mass/Vol] 154 mg/dL Normal [facility] Comment on above: Result Comment: The drugs N-Acetylcysteine and Metamizole may falsely depress this assay. Serum Triglycerides Reference Interval Normal <150 mg/dL Borderline high 150 - 199 mg/dL High 200 - 499 mg/dL Very High > or = 500 mg/dL Performed By: #### L 500.4050, L100.0100, L400.0001 #### [facility] [address] [place], [address] Thyroid Stim Hormone (TSH)on 03-13-2024 TSH 2.490 uIU/mL Normal 0.358-3.740 [facility] Comment on above: Performed By: #### L 500.4050, L100.0100, L400.0001 #### [facility] [address] [place], [address] Vitamin D,25 Hydroxyon 03-13 Vitamin D 25-OH 37.2 ng/mL Normal [facility] Comment on above: Result Comment: Estelita min D 25(OH) Status Range Deficiency <20 ng/mL (50nmol/L) Insufficiency 20 - 30 ng/mL (50 - 75 nmol/L) Sufficiency 30 - 100 ng/mL (75 - 250 nmol/L) Toxicity >100 ng/mL (>250 nmol/L) Performed By: #### L 500.4050, L100.0100, L400.0001 #### [facility] [address] [place], [address] Abdomen/Pelvis WITH Contrast on 11-02-2023 Abdomen/Pelvis WITH Contrast [facility] [address] [place] [address] Abdomen/Pelvis WITH Contrast MR#: [id number] Acct: [id number] Name: JEYSON DAVE Rep #: [id number] : [id number] F [id number] From: Rigoberto gandhi MD PCP: Dr. Marquis Singh MD Status: REG CL Study: Abdomen/Pelvis WITH Contrast Date of Exam: Exam# [id number] Ordering Dr: [place] [id number] STUDY: CT ABDOMEN AND PELVIS WITH CONTRAST REASON FOR EXAM: Female, 67 years old. abd pain RADIATION DOSAGE (If Supplied By Facility): CTDIvol = ( 17.87 ) mGy, DLP = ( 1147.58 ) mGycm TECHNIQUE: Transaxial images were obtained from the dome of the diaphragm to the symphysis pubis without oral contrast. IV 100mL Isovue-300 was administered. Sagittal and coronal images were reconstructed. Individualized dose optimization techniques were used for this CT. COMPARISON: Comparison is made with prior study dated November 05, 2014. FINDINGS: Minimal increased linear markings at the lung bases suggesting mild basilar scarring and/or atelectasis. The visualized portions of the heart are within normal limits. Normal liver. Normal gallbladder and extrahepatic biliary system. Normal spleen. Normal pancreas. Normal bilateral adrenal glands. Bilateral parapelvic renal cysts. Tiny nonobstructive calculi seen in the lower pole calyx of the left kidney. There is a small hiatal hernia. Normal small intestine. Normal colon. The appendix is visualized and appears normal. There is diffuse atherosclerotic calcification of the abdominal aorta, without a demonstrated aneurysm. Normal inferior vena cava. Normal retroperitoneum. Normal urinary bladder. There is absence of the uterus consistent with a prior hysterectomy. There is a left-sided inguinal hernia containing adipose tissue. Stable focal sclerosis along the superior lateral aspect of the L4 vertebrae. CT/Abdomen/Pelvis WITH Contrast IMPRESSION: Bilateral parapelvic renal cysts. Tiny nonobstructive calculi seen in the lower pole calyx of the left kidney. Electronically Signed: Rigoberto Hanson MD at 10:17 EDT , CC: Dr. Marquis Singh MD Business Mail Entry Clerk: Signed Normal [facility] CBC W/Diff, Automatedon 10-20 Absolute Lymph 1.55 X10 3/uL Normal 0.83-4.51 [facility] Comment on above: Performed By: #### L 500.4050, L100.0100, L400.0001 #### [facility] [address] [place], [address] Absolute Neut 4.2 X10 3/uL Normal 2.0-7.7 [facility] Comment on above: Performed By: #### L 500.4050, L100.0100, L400.0001 #### [facility] [address] [place], [address] Basophils/100 WBC (Bld) 0.5 % Normal 0-1 [facility] Comment on above: Performed By: #### L 500.4050, L100.0100, L400.0001 #### [facility] [address] [place], [address] Eosinophils/100 WBC (Bld) 0.6 % Normal 0-5 [facility] Comment on above: Performed By: #### L 500.4050, L100.0100, L400.0001 #### [facility] [address] [place], [address] Erythrocyte distribution width (RBC) [Ratio] 14.3 % Normal 11.6-14.6 [facility] Comment on above: Performed By: #### L 500.4050, L100.0100, L400.0001 #### [facility] [address] [place], [address] Hematocrit (Bld) [Volume fraction] 40.8 % Normal 37-47 [facility] Comment on above: Performed By: #### L 500.4050, L100.0100, L400.0001 #### [facility] [address] [place], [address] Hemoglobin (Bld) [Mass/Vol] 13.1 g/dL Normal 12.0-15.0 [facility] Comment on above: Performed By: #### L 500.4050, L100.0100, L400.0001 #### [facility] [address] [place], [address] IG% 0.300 Normal 0.0-0.9 [facility] Comment on above: Result Comment: IG% - Immature Granulocytes (promyelocytes, myelocytes and metamyelocytes) > 1% indicates that a LEFT SHIFT is Present. Performed By: #### L 500.4050, L100.0100, L400.0001 #### [facility] [address] [place], [address] Lymphocytes/100 WBC (Bld) 23.4 % Normal 19-41 [facility] Comment on above: Performed By: #### L 500.4050, L100.0100, L400.0001 #### [facility] [address] [place], [address] MCH (RBC) [Entitic mass] 31.1 pg Normal 27.0-32.0 [facility] Comment on above: Performed By: #### L 500.4050, L100.0100, L400.0001 #### [facility] [address] [place], [address] MCHC (RBC) [Mass/Vol] 32.1 g/dL Normal 32-36 [facility] Comment on above: Performed By: #### L 500.4050, L100.0100, L400.0001 #### [facility] [address] [place], [id number] MCV (RBC) [Entitic vol] 96.9 fL Normal 81-99 [facility] Comment on above: Performed By: #### L 500.4050, L100.0100, L400.0001 #### [facility] [address] [place], [id number] Monocytes/100 WBC (Bld) 12.2 % High 0-10 [facility] Comment on above: Performed By: #### L 500.4050, L100.0100, L400.0001 #### [facility] [address] [place], [address] Neutrophils/100 WBC (Bld) 63.0 % Normal 47-70 [facility] Comment on above: Performed By: #### L 500.4050, L100.0100, L400.0001 #### [facility] [address] [place], [address] Nucleated RBC (Bld) [#/Vol] 0 10*3/uL Normal 0-5 [facility] Comment on above: Performed By: #### L 500.4050, L100.0100, L400.0001 #### [facility] [address] [place], [address] Platelet mean volume (Bld) [Entitic vol] 10.1 fL Normal 6.2-12.0 [facility] Comment on above: Performed By: #### L 500.4050, L100.0100, L400.0001 #### [facility] [address] [place], [address] Platelets (Bld) [#/Vol] 225 10*3/uL Normal 150-450 [facility] Comment on above: Performed By: #### L 500.4050, L100.0100, L400.0001 #### [facility] [address] [place], [id number] RBC (Bld) [#/Vol] 4.21 10*6/uL Normal 4.2-5.4 [facility] Comment on above: Performed By: #### L 500.4050, L100.0100, L400.0001 #### [facility] [address] [place], [id number] RDW SD 50.9 fl High 35.1-43.9 [facility] Comment on above: Performed By: #### L 500.4050, L100.0100, L400.0001 #### [facility] [address] [place], [address] WBC (Bld) [#/Vol] 6.6 10*3/uL Normal 4.4-11.0 [facility] Comment on above: Performed By: #### L 500.4050, L100.0100, L400.0001 #### [facility] [address] [place], [id number] Comprehensive Metabolic Prof [facility] 11-01-2023 Albumin [Mass/Vol] 3.3 g/dL Normal 3.2-5.0 [facility] Comment on above: Performed By: #### L 500.4050, L100.0100, L400.0001 #### [facility] [address] [place], [id number] Albumin/Globulin [Mass ratio] 0.8 {ratio} Low 0.9-2.4 [facility] Comment on above: Performed By: #### L 500.4050, L100.0100, L400.0001 #### [facility] [address] [place], [id number] ALK P 86 U/L Normal 45-117 [facility] Comment on above: Performed By: #### L 500.4050, L100.0100, L400.0001 #### [facility] [address] [place], [id number] ALT [Catalytic activity/Vol] 22 U/L Normal 13-56 [facility] Comment on above: Performed By: #### L 500.4050, L100.0100, [id number] #### [facility] [address] [place], [id number] AST [Catalytic activity/Vol] 17 U/L Normal 15-37 [facility] Comment on above: Performed By: #### L 500.4050, L100.0100, [id number] #### [facility] [address] [place], [id number] Bilirubin [Mass/Vol] 0.70 mg/dL Normal 0.20-1.00 [facility] Comment on above: Result Comment: For patients on eltrombopag therapy, use of Dimension Ch[place]is TBIL is not recommended. Performed By: #### L 500.4050, L100.0100, [id number] #### [facility] [address] [place], [id number] BUN/CRE 21.6 RATIO High 10-20 [facility] Comment on above: Performed By: #### L [id number], L100.0100, [id number] #### [facility] [address] [place], [id number] CA,Total 9.8 mg/dL Normal 8.5-10.1 [facility] Comment on above: Performed By: #### L 500.4050, L100.0100, [id number] #### [facility] [address] [place], [id number] Chloride [Moles/Vol] 105 mmol/L Normal 98-107 [facility] Comment on above: Performed By: #### L 500.4050, L100.0100, [id number] #### [facility] [address] [place], [address] CO2 [Moles/Vol] 27.0 mmol/L Normal 21.0-32.0 [facility] Comment on above: Performed By: #### L [id number], L100.0100, [id number] #### [facility] [address] [place], [address] Creatinine [Mass/Vol] 1.16 mg/dL High 0.55-1.02 [facility] Comment on above: Result Comment: The validity of the calculated GFR GFRAA in patients over 70 years has not been determined. Clinical correlation is essential. Performed By: #### L 500.4050, L100.0100, [id number] #### [facility] [address] [place], [address] EST GFR - AA 59 mL/min Low >60 [facility] Comment on above: Result Comment: Afri can Vincentian GFR Calc Performed By: #### L 500.4050, L100.0100, [id number] #### [facility] [address] [place], [address] GAP 7 Normal 5-15 [facility] Comment on above: Performed By: #### L 500.4050, L100.0100, [id number] #### [facility] [address] [place], [address] GFR/1.73 sq M.predicted among non-blacks MDRD (S/P/Bld) [Vol rate/Area] 49 mL/min/{1.73_m2} Low >60 [facility] Comment on above: Result Comment: Non- GFR Calc Performed By: #### L 500.4050, L100.0100, [id number] #### [facility] [address] [place], [address] Globulin (S) [Mass/Vol] 4.0 g/dL Normal 2.2-4.2 [facility] Comment on above: Performed By: #### L 500.4050, L100.0100, [id number] #### [facility] [address] [place], [address] Glucose [Mass/Vol] 126 mg/dL High 74-106 [facility] Comment on above: Result Comment: Fast ing Glucose result greater than or equal to 126 mg/dL suggests DIABETES MELLITUS per A.D.A. criteria. Performed By: #### L 500.4050, L100.0100, [id number] #### [facility] [address] [place], [address] Potassium [Moles/Vol] 3.7 mmol/L Normal 3.5-5.1 [facility] Comment on above: Performed By: #### L 500.4050, L100.0100, [id number] #### [facility] [address] [place], [address] Sodium [Moles/Vol] 139 mmol/L Normal 136-145 [facility] Comment on above: Performed By: #### L 500.4050, L100.0100, [id number] #### [facility] [address] [place], [address] T PROT 7.3 g/dL Normal 6.4-8.2 [facility] Comment on above: Performed By: #### L 500.4050, L100.0100, [id number] #### [facility] [address] [place], [address] Urea nitrogen [Mass/Vol] 25 mg/dL High 7-18 [facility] Comment on above: Performed By: #### L 500.4050, L100.0100, [id number] #### [facility] [address] [place], [address] Urinalysis, Completeon 10-31 EPI,TRANSITION 0-5 SEEN Normal 0-5 [facility] Comment on above: Order Comment: Urine , Random Performed By: #### L 500.4050, L100.0100, [id number] #### [facility] [address] [place], [address] RBC 0-5 SEEN Normal 0-5 [facility] Comment on above: Order Comment: Urine , Random Performed By: #### L 500.4050, L100.0100, [id number] #### [facility] [address] [place], [id number] BACTERIA 2+ /hpf Normal None Seen [facility] Comment on above: Order Comment: Urine , Random Performed By: #### L [id number], L100.0100, [id number] #### [facility] [address] [place], [id number] EPI,SQUAMOUS 0-5 SEEN Normal 5-10 [facility] Comment on above: Order Comment: Urine , Random Performed By: #### L [id number], L100.0100, [id number] #### [facility] [address] [place], [address] Mucus Ql (Urine sed) 1+ /hpf Normal [facility] Comment on above: Order Comment: Urine , Random Performed By: #### L 500.4050, L100.0100, [id number] #### [facility] [address] [place], [address] WBC 10-25 SEEN Normal 0-5 [facility] Comment on above: Order Comment: Urine , Random Performed By: #### L [id number], L100.0100, [id number] #### [facility] [address] [place], [id number] Absolute lymphocyte countOrd ered By: Marquis Singh on 03-08-2023 Lymphocytes Auto (Unsp spec) [#/Vol] 1.77 10*3/uL 0.83-4.51 [facility] Automated lymphocyte count a s percentage of total leukocytesOrdered By: Marquis Singh on 03-08-2023 Lymphocytes/100 WBC Auto (Unsp spec) 26.3 % 19-41 [facility] Basophil percentageOrdered B y: Marquis Singh on 03-08-2023 Basophils/100 WBC (Bld) 0.6 % 0-1 [facility] Bilirubin [Mass/Vol] 0.80 mg/dL 0.20-1.00 [facility] Comment on above: For patients on eltr ombopag therapy, use of Dimension [place]is TBIL is not recommended. Chloride [Moles/Vol] 107 mmol/L 98-107 [facility] Cholesterol [Mass/Vol] 187 mg/dL <200 [facility] Comment on above: <200 mg/dL Desirable 200-240 mg/dL Borderline >240 mg/dL High Risk Eosinophils/100 WBC (Bld) 1.2 % 0-5 [facility] Glucose [Mass/Vol] 144 mg/dL 74-106 [facility] Comment on above: Fasting Glucose resu lt greater than or equal to 126 mg/dL suggests DIABETES MELLITUS per A.D.A. criteria. Hemoglobin (Bld) [Mass/Vol] 13.7 g/dL 12.0-15.0 [facility] Monocytes/100 WBC (Bld) 8.5 % 0-10 [facility] Neutrophils (Bld) [#/Vol] 4.2 10*3/uL 2.0-7.7 [facility] Neutrophils/100 WBC (Bld) 63.1 % 47-70 [facility] Potassium [Moles/Vol] 3.4 mmol/L 3.5-5.1 [facility] Protein [Mass/Vol] 7.4 g/dL 6.4-8.2 [facility] Sodium [Moles/Vol] 140 mmol/L 136-145 [facility] Triglyceride [Mass/Vol] 126 mg/dL <199 [facility] Comment on above: The drugs N-Acetylcy steine and Metamizole may falsely depress this assay.Serum Triglycerides Reference Interval Normal <150 mg/dL Borderline high 150 - 199 mg/dL High 200 - 499 mg/dL Very High > or = 500 mg/dL WBC (Bld) [#/Vol] 6.7 10*3/uL 4.4-11.0 [facility] Determination of erythrocyte mean corpuscular volume (MCV)Ordered By: Marquis Singh on 03-08-2023 MCV (RBC) [Entitic vol] 96.9 fL 81-99 [facility] Erythrocyte distribution wid th ratioOrdered By: [facility] on 03-08-2023 Erythrocyte distribution width (RBC) [Ratio] 13.1 % 11.6-14.6 [facility] Erythrocyte distribution wid th standard deviationOrdered By: [facility] on 03-08-2023 Erythrocyte distribution width (RBC) [Entitic vol] 46.7 fL 35.1-43.9 [facility] Hematocrit Auto (Bld) [Volum e fraction]Ordered By: [facility] 03-08-2023 Hematocrit (Bld) [Volume fraction] 43.4 % 37-47 [facility] High density lipoprotein (HD L) measurementOrdered By: Marquis Singh 03-08-2023 Cholesterol in HDL (Body fld) [Mass/Vol] 62 mg/dL >40 [facility] Comment on above: The drugs N-Acetylcy steine and Metamizole may falsely depress this assay. Reference Range HDL <40 mg/dL Low HDL Cholesterol HDL >or= 60 mg/dL High HDL Cholesterol Immature granulocytes/100 WB C Auto (Bld)Ordered By: Marquis Francisco 03-08-2023 Immature granulocytes/100 WBC (Bld) 0.300 % 0.0-0.9 [facility] Comment on above: IG% - Immature Granu locytes (promyelocytes, myelocytes and metamyelocytes) > 1% indicates that a LEFT SHIFT is Present. Laboratory - Chemistry and C hemistry - challengeOrdered By: [facility] 03-08-2023 Albumin/Globulin [Mass ratio] 0.9 {ratio} 0.9-2.4 [facility] ALP [Catalytic activity/Vol] 93 U/L 45-117 [facility] ALT [Catalytic activity/Vol] 22 U/L 13-56 [facility] CO2 [Moles/Vol] 29.0 mmol/L 21.0-32.0 [facility] Globulin (S) [Mass/Vol] 3.8 g/dL 2.2-4.2 [facility] Urea nitrogen/Creatinine [Mass ratio] 23.0 mg/mg 10-20 [facility] Laboratory - Hematology and Cell countsOrdered By: Marquis Singh on 03-08-2023 MCH (RBC) [Entitic mass] 30.6 pg 27.0-32.0 [facility] MCHC (RBC) [Mass/Vol] 31.6 g/dL 32-36 [facility] Nucleated RBC/100 WBC (Bld) [Ratio] 0 % 0-5 [facility] Platelets (Bld) [#/Vol] 256 10*3/uL 150-450 [facility] Low density lipoprotein (LDL ) cholesterol measurementOrdered By: Marquis Singh on 03-08-2023 Cholesterol in LDL (Body fld) [Moles/Vol] 100 mg/dL 0-130 [facility] No Panel InformationOrdered By: Marquis Singh on 03-08-2023 Estimated GFR (MDRD) Amer 61 mL/min >60 [facility] Comment on above: GFR Calc Estimated GFR (MDRD) Non-Af Amer 51 mL/min >60 [facility] Comment on above: Non- GFR Calc Vitamin D 25-Hydroxy 49.8 ng/mL [facility] Comment on above: Vitamin D 25(OH) Sta tus Range Deficiency <20 ng/mL (50nmol/L) Insufficiency 20 - 30 ng/mL (50 - 75 nmol/L) Sufficiency 30 - 100 ng/mL (75 - 250 nmol/L) Toxicity >100 ng/mL (>250 nmol/L) Platelet mean volume Bhanu-Ec ker (Bld) [Entitic vol]Ordered By: Marquis Singh on 03-08-2023 Platelet mean volume (Bld) [Entitic vol] 10.0 fL 6.2-12.0 [facility] RBC Auto (Bld) [#/Vol]Ordere d By: Marquis Singh on 03-08-2023 RBC (Bld) [#/Vol] 4.48 10*6/uL 4.2-5.4 [facility] Serum or plasma calcium nelida urement (mass/volume)Ordered By: Marquis Singh on 03-08-2023 Calcium [Mass/Vol] 9.6 mg/dL 8.5-10.1 [facility] Serum or plasma creatinine m easurement (mass/volume)Ordered By: Marquis Singh on 03-08-2023 Creatinine [Mass/Vol] 1.13 mg/dL 0.55-1.02 [facility] Comment on above: The validity of the calculated GFR & GFRAA in patients over 70 years has not been determined. Clinical correlation is essential. Serum or plasma thyroid stim ulating hormone (TSH) measurement (units/volume)Ordered By: Marquis Singh on 03-08-2023 TSH Qn 2.06 uIU/mL 0.358-3.74 [facility] Serum or plasma urea nitroge n measurement (mass/volume)Ordered By: Marquis Singh on 03-08-2023 Urea nitrogen [Mass/Vol] 26 mg/dL 7-18 [facility] Thin prep Papanicolaou smear with manual screeningOrdered By: Marquis Singh on 03-08-2023 Thin prep Papanicolaou smear with manual screening 3.6 g/dL 3.2-5.0 [facility] Thin prep Papanicolaou smear with manual screening 14 U/L 15-37 [facility] Thin prep Papanicolaou smear with manual screening 4 5-15 [facility] Very low density lipoprotein (VLDL) cholesterol measurementOrdered By: Marquis Singh on 03-08-2023 Cholesterol in VLDL Calc [Moles/Vol] 25 mg/dL 5-40 [facility] Whole blood hemoglobin A1c/t otal hemoglobin ratio (mass fraction)Ordered By: Marquis Singh on 03-08-2023 HbA1c (Bld) [Mass fraction] 6.7 % 3.8-5.6 [facility] Comment on above: Normal < 5.7 % Predi abetic 5.7 - 6.4 % Diabetic >or= 6.5 % Please note range changes. Absolute lymphocyte countOrd ered By: Pau Jack on 09-04-2022 Lymphocytes Auto (Unsp spec) [#/Vol] 1.70 10*3/uL 0.83-4.51 [facility] Basophil percentageOrdered B y: Pau Jack on 09-04-2022 Basophil percentage 3.9 mg/dL 2.5-4.9 [facility] Basophils/100 WBC (Bld) 0.6 % 0-1 [facility] Bilirubin [Mass/Vol] 0.40 mg/dL 0.20-1.00 [facility] Comment on above: For patients on eltr ombopag therapy, use of Dimension [place] TBIL is not recommended. Chloride [Moles/Vol] 106 mmol/L 98-107 [facility] Cholesterol [Mass/Vol] 159 mg/dL <200 [facility] Comment on above: <200 mg/dL Desirable 200-240 mg/dL Borderline >240 mg/dL High Risk Eosinophils/100 WBC (Bld) 1.3 % 0-5 [facility] Glucose [Mass/Vol] 127 mg/dL 74-106 [facility] Comment on above: Fasting Glucose resu lt greater than or equal to 126 mg/dL suggests DIABETES MELLITUS per A.D.A. criteria. Neutrophils (Bld) [#/Vol] 3.0 10*3/uL 2.0-7.7 [facility] Neutrophils/100 WBC (Bld) 56.5 % 47-70 [facility] Potassium [Moles/Vol] 4.2 mmol/L 3.5-5.1 [facility] Protein [Mass/Vol] 7.1 g/dL 6.4-8.2 [facility] Sodium [Moles/Vol] 139 mmol/L 136-145 [facility] Triglyceride [Mass/Vol] 78 mg/dL <199 [facility] Comment on above: The drugs N-Acetylcy steine and Metamizole may falsely depress this assay.Serum Triglycerides Reference Interval Normal <150 mg/dL Borderline high 150 - 199 mg/dL High 200 - 499 mg/dL Very High > or = 500 mg/dL WBC (Bld) [#/Vol] 5.4 10*3/uL 4.4-11.0 [facility] Blood erythrocytes count (nu mber/volume)Ordered By: Pau Jack on 09-04-2022 RBC (Bld) [#/Vol] 4.08 10*6/uL 4.2-5.4 [facility] Blood hemoglobin measurement (mass/volume)Ordered By: Pau Jack on 09-04-2022 Hemoglobin (Bld) [Mass/Vol] 12.5 g/dL 12.0-15.0 [facility] Blood lymphocytes/100 leukoc ytesOrdered By: Pau Jack on 09-04-2022 Lymphocytes/100 WBC (Bld) 31.7 % 19-41 [facility] Blood monocytes/100 leukocyt esOrdered By: Pau Jack on 09-04-2022 Monocytes/100 WBC (Bld) 9.5 % 0-10 [facility] Blood platelet mean volumeOr dered By: Pau Jack on 09-04-2022 Platelet mean volume (Bld) [Entitic vol] 10.1 fL 6.2-12.0 [facility] Determination of erythrocyte mean corpuscular volume (MCV)Ordered By: Pau Jack on 09-04-2022 MCV (RBC) [Entitic vol] 99.5 fL 81-99 [facility] Hematocrit Auto (Bld) [Volum e fraction]Ordered By: Pau Jack on 09-04-2022 Hematocrit (Bld) [Volume fraction] 40.6 % 37-47 [facility] Laboratory - Chemistry and C hemistry - challengeOrdered By: Pau Jack on 09-04-2022 ALP [Catalytic activity/Vol] 96 U/L 45-117 [facility] ALT [Catalytic activity/Vol] 23 U/L 13-56 [facility] CO2 [Moles/Vol] 29.0 mmol/L 21.0-32.0 [facility] Globulin (S) [Mass/Vol] 4.0 g/dL 2.2-4.2 [facility] Urea nitrogen/Creatinine [Mass ratio] 17.9 mg/mg 10-20 [facility] Laboratory - Hematology and Cell countsOrdered By: Pau Jack on 09-04-2022 Erythrocyte distribution width (RBC) [Entitic vol] 52.7 fL 35.1-43.9 [facility] Erythrocyte distribution width (RBC) [Ratio] 14.2 % 11.6-14.6 [facility] Immature granulocytes/100 WBC (Bld) 0.400 % 0.0-0.9 [facility] Comment on above: IG% - Immature Granu locytes (promyelocytes, myelocytes and metamyelocytes) > 1% indicates that a LEFT SHIFT is Present. MCH (RBC) [Entitic mass] 30.6 pg 27.0-32.0 [facility] Nucleated RBC/100 WBC (Bld) [Ratio] 0 % 0-5 [facility] MCHC Auto (RBC) [Mass/Vol]Or dered By: Pau Jack on 09-04-2022 MCHC (RBC) [Mass/Vol] 30.8 g/dL 32-36 [facility] No Panel InformationOrdered By: Pau Jack on 09-04-2022 Estimated GFR (MDRD) Amer 59 mL/min >60 [facility] Comment on above: GFR Calc Estimated GFR (MDRD) Non-Af Amer 49 mL/min >60 [facility] Comment on above: Non- GFR Calc Thyroid Stimulating Hormone (TSH) 2.48 uIU/mL 0.358-3.74 [facility] Urine Microalbumin/Creatini ne Ratio 10.0 mg/g CRE <30 [facility] Vitamin D 25-Hydroxy 52.6 ng/mL [facility] Comment on above: Vitamin D 25(OH) Sta tus Range Deficiency <20 ng/mL (50nmol/L) Insufficiency 20 - 30 ng/mL (50 - 75 nmol/L) Sufficiency 30 - 100 ng/mL (75 - 250 nmol/L) Toxicity >100 ng/mL (>250 nmol/L) Platelets bldOrdered By: Beck Jack on 09-04-2022 Platelets (Bld) [#/Vol] 251 10*3/uL 150-450 [facility] Serum or plasma albumin nelida urement (mass/volume)Ordered By: Pau Jack on 09-04-2022 Albumin [Mass/Vol] 3.1 g/dL 3.2-5.0 [facility] Serum or plasma albumin/glob ulin mass ratioOrdered By: Pau Jack on 09-04-2022 Albumin/Globulin [Mass ratio] 0.8 {ratio} 0.9-2.4 [facility] Serum or plasma calcium nelida urement (mass/volume)Ordered By: Pau Jack on 09-04-2022 Calcium [Mass/Vol] 8.8 mg/dL 8.5-10.1 [facility] Serum or plasma cholesterol in HDL measurement (mass/volume)Ordered By: Pau Jack on 09-04-2022 Cholesterol in HDL [Mass/Vol] 57 mg/dL >40 [facility] Comment on above: The drugs N-Acetylcy steine and Metamizole may falsely depress this assay. Reference Range HDL <40 mg/dL Low HDL Cholesterol HDL >or= 60 mg/dL High HDL Cholesterol Serum or plasma cholesterol in VLDL measurement (mass/volume)Ordered By: Pau Jack on 09-04-2022 Cholesterol in VLDL [Mass/Vol] 16 mg/dL 5-40 [facility] Serum or plasma creatinine m easurement (mass/volume)Ordered By: Pau Jack on 09-04-2022 Creatinine [Mass/Vol] 1.17 mg/dL 0.55-1.02 [facility] Comment on above: The validity of the calculated GFR & GFRAA in patients over 70 years has not been determined. Clinical correlation is essential. Serum or plasma low density lipoprotein (LDL) cholesterol measurement (mass/volume)Ordered By: Pau Jack on 09-04-2022 Cholesterol in LDL [Mass/Vol] 86 mg/dL 0-130 [facility] Serum or plasma urea nitroge n measurement (mass/volume)Ordered By: Pau Jack on 09-04-2022 Urea nitrogen [Mass/Vol] 21 mg/dL 7-18 [facility] Thin prep Papanicolaou smear with manual screeningOrdered By: Pau Jack on 09-04-2022 Thin prep Papanicolaou smear with manual screening 14 U/L 15-37 [facility] Thin prep Papanicolaou smear with manual screening 4 5-15 [facility] Thin prep Papanicolaou smear with manual screening 11.2 mg/L NO RANGE EST. [facility] Urine creatinine measurement (mass/volume)Ordered By: Pau Jack on 09-04-2022 Creatinine (U) [Mass/Vol] 110.00 mg/dL NO RANGE EST. [facility] Whole blood hemoglobin A1c/t otal hemoglobin ratio (mass fraction)Ordered By: Pau Jack on 09-04-2022 HbA1c (Bld) [Mass fraction] 6.8 % 3.8-5.6 [facility] Comment on above: Normal < 5.7 % Predi abetic 5.7 - 6.4 % Diabetic >or= 6.5 % Please note range changes. Absolute lymphocyte countOrd ered By: Dr. Singh on 03-08-2022 Lymphocytes Auto (Unsp spec) [#/Vol] 1.80 10*3/uL 0.83-4.51 [facility] Basophil percentageOrdered B y: Dr. Singh on 03-08-2022 Basophils/100 WBC (Bld) 0.6 % 0-1 [facility] Bilirubin [Mass/Vol] 0.50 mg/dL 0.20-1.00 [facility] Comment on above: For patients on eltr ombopag therapy, use of Dimension Ch[place]is TBIL is not recommended. Chloride [Moles/Vol] 104 mmol/L 98-107 [facility] Eosinophils/100 WBC (Bld) 1.5 % 0-5 [facility] Glucose [Mass/Vol] 182 mg/dL 74-106 [facility] Comment on above: Fasting Glucose resu lt greater than or equal to 126 mg/dL suggests DIABETES MELLITUS per A.D.A. criteria. Neutrophils (Bld) [#/Vol] 2.3 10*3/uL 2.0-7.7 [facility] Neutrophils/100 WBC (Bld) 49.5 % 47-70 [facility] Potassium [Moles/Vol] 4.0 mmol/L 3.5-5.1 [facility] Protein [Mass/Vol] 7.0 g/dL 6.4-8.2 [facility] Sodium [Moles/Vol] 141 mmol/L 136-145 [facility] WBC (Bld) [#/Vol] 4.7 10*3/uL 4.4-11.0 [facility] Blood erythrocytes count (nu mber/volume)Ordered By: Dr. Singh on 03-08-2022 RBC (Bld) [#/Vol] 3.94 10*6/uL 4.2-5.4 [facility] Blood hemoglobin measurement (mass/volume)Ordered By: Dr. Singh on 03-08-2022 Hemoglobin (Bld) [Mass/Vol] 12.5 g/dL 12.0-15.0 [facility] Blood lymphocytes/100 leukoc ytesOrdered By: Dr. Singh on 03-08-2022 Lymphocytes/100 WBC (Bld) 38.1 % 19-41 [facility] Blood monocytes/100 leukocyt esOrdered By: Dr. Singh on 03-08-2022 Monocytes/100 WBC (Bld) 9.9 % 0-10 [facility] Blood platelet mean volumeOr dered By: Dr. Singh on 03-08-2022 Platelet mean volume (Bld) [Entitic vol] 10.1 fL 6.2-12.0 [facility] Determination of erythrocyte mean corpuscular volume (MCV)Ordered By: Dr. Singh on 03-08-2022 MCV (RBC) [Entitic vol] 97.0 fL 81-99 [facility] Hematocrit Auto (Bld) [Volum e fraction]Ordered By: Dr. Singh on 03-08-2022 Hematocrit (Bld) [Volume fraction] 38.2 % 37-47 [facility] Laboratory - Chemistry and C hemistry - challengeOrdered By: Dr. Singh on 03-08-2022 ALP [Catalytic activity/Vol] 84 U/L 45-117 [facility] ALT [Catalytic activity/Vol] 23 U/L 13-56 [facility] CO2 [Moles/Vol] 30.0 mmol/L 21.0-32.0 [facility] Globulin (S) [Mass/Vol] 3.7 g/dL 2.2-4.2 [facility] Urea nitrogen/Creatinine [Mass ratio] 16.4 mg/mg 10-20 [facility] Laboratory - Hematology and Cell countsOrdered By: Dr. Singh on 03-08-2022 Erythrocyte distribution width (RBC) [Entitic vol] 49.7 fL 35.1-43.9 [facility] Erythrocyte distribution width (RBC) [Ratio] 13.8 % 11.6-14.6 [facility] Immature granulocytes/100 WBC (Bld) 0.400 % 0.0-0.9 [facility] Comment on above: IG% - Immature Granu locytes (promyelocytes, myelocytes and metamyelocytes) > 1% indicates that a LEFT SHIFT is Present. MCH (RBC) [Entitic mass] 31.7 pg 27.0-32.0 [facility] Nucleated RBC/100 WBC (Bld) [Ratio] 0 % 0-5 [facility] Auto (RBC) [Mass/Vol]Or dered By: Dr. Singh on 03-08-2022 MCHC (RBC) [Mass/Vol] 32.7 g/dL 32-36 [facility] No Panel InformationOrdered By: Dr. Singh on 03-08-2022 Estimated GFR (MDRD) Amer 48 mL/min >60 [facility] Comment on above: GFR Calc Estimated GFR (MDRD) Non-Af Amer 40 mL/min >60 [facility] Comment on above: Non- GFR Calc Thyroid Stimulating Hormone (TSH) 2.13 uIU/mL 0.358-3.74 [facility] Vitamin D 25-Hydroxy 41.6 ng/mL [facility] Comment on above: Vitamin D 25(OH) Sta tus Range Deficiency <20 ng/mL (50nmol/L) Insufficiency 20 - 30 ng/mL (50 - 75 nmol/L) Sufficiency 30 - 100 ng/mL (75 - 250 nmol/L) Toxicity >100 ng/mL (>250 nmol/L) Platelets bldOrdered By: Dr. Singh on 03-08-2022 Platelets (Bld) [#/Vol] 241 10*3/uL 150-450 [facility] Serum or plasma albumin nelida urement (mass/volume)Ordered By: Dr. Singh on 03-08-2022 Albumin [Mass/Vol] 3.3 g/dL 3.2-5.0 [facility] Serum or plasma albumin/glob ulin mass ratioOrdered By: Dr. Singh on 03-08-2022 Albumin/Globulin [Mass ratio] 0.9 {ratio} 0.9-2.4 [facility] Serum or plasma calcium nelida urement (mass/volume)Ordered By: Dr. Singh on 03-08-2022 Calcium [Mass/Vol] 9.1 mg/dL 8.5-10.1 [facility] Serum or plasma creatinine m easurement (mass/volume)Ordered By: Dr. Singh on 03-08-2022 Creatinine [Mass/Vol] 1.40 mg/dL 0.55-1.02 [facility] Comment on above: The validity of the calculated GFR & GFRAA in patients over 70 years has not been determined. Clinical correlation is essential. Serum or plasma urea nitroge n measurement (mass/volume)Ordered By: Dr. Singh on 03-08-2022 Urea nitrogen [Mass/Vol] 23 mg/dL 7-18 [facility] Thin prep Papanicolaou smear with manual screeningOrdered By: Dr. Singh on 03-08-2022 Thin prep Papanicolaou smear with manual screening 13 U/L 15-37 [facility] Thin prep Papanicolaou smear with manual screening 7 5-15 [facility] Basophil percentageOrdered B y: Dr. Jack on 12-30-2021 Basophil percentage 3.7 mg/dL 2.5-4.9 [facility] Chloride [Moles/Vol] 105 mmol/L 98-107 [facility] Glucose [Mass/Vol] 118 mg/dL 74-106 [facility] Comment on above: Fasting Glucose resu lt from 100 to 125 mg/dL suggests IMPAIRED HOMEOSTASIS per A.D.A. criteria. Potassium [Moles/Vol] 3.6 mmol/L 3.5-5.1 [facility] Sodium [Moles/Vol] 138 mmol/L 136-145 [facility] Laboratory - Chemistry and C hemistry - challengeOrdered By: Dr. Jack on 12-30-2021 CO2 [Moles/Vol] 26.0 mmol/L 21.0-32.0 [facility] Urea nitrogen/Creatinine [Mass ratio] 21.3 mg/mg 10-20 [facility] No Panel InformationOrdered By: Dr. Jack on 12-30-2021 Estimated GFR (MDRD) Amer 54 mL/min >60 [facility] Comment on above: GFR Calc Estimated GFR (MDRD) Non-Af Amer 45 mL/min >60 [facility] Comment on above: Non- GFR Calc Serum or plasma albumin nelida urement (mass/volume)Ordered By: Dr. Jack on 12-30-2021 Albumin [Mass/Vol] 3.5 g/dL 3.2-5.0 [facility] Serum or plasma calcium nelida urement (mass/volume)Ordered By: Dr. Jack on 12-30-2021 Calcium [Mass/Vol] 9.6 mg/dL 8.5-10.1 [facility] Serum or plasma creatinine m easurement (mass/volume)Ordered By: Dr. Jack on 12-30-2021 Creatinine [Mass/Vol] 1.27 mg/dL 0.55-1.02 [facility] Comment on above: The validity of the calculated GFR & GFRAA in patients over 70 years has not been determined. Clinical correlation is essential. Serum or plasma urea nitroge n measurement (mass/volume)Ordered By: Dr. Jack on 12-30-2021 Urea nitrogen [Mass/Vol] 27 mg/dL 7-18 [facility] No Panel InformationOrdered By: Dr. Jack on 11-24-2021 Urine Microalbumin/Creatini ne Ratio 13.6 mg/g CRE <30 [facility] Thin prep Papanicolaou smear with manual screeningOrdered By: Dr. Jack on 11-24-2021 Thin prep Papanicolaou smear with manual screening 39.2 mg/L NO RANGE EST. [facility] Urine creatinine measurement (mass/volume)Ordered By: Dr. Jack on 11-24-2021 Creatinine (U) [Mass/Vol] 289.00 mg/dL NO RANGE EST. [facility] Absolute lymphocyte counton 08-30-2021 Lymphocytes Auto (Unsp spec) [#/Vol] 1.89 10*3/uL 0.83-4.51 [facility] Work Phone: Basophil percentageon 2021 Basophils/100 WBC (Bld) 0.4 % 0-1 [facility] Work Phone: Bilirubin [Mass/Vol] 0.40 mg/dL 0.20-1.00 [facility] Work Phone: Comment on above: For patients on eltr ombopag therapy, use of Dimension Challis TBIL is not recommended. Chloride [Moles/Vol] 106 mmol/L 98-107 [facility] Work Phone: Eosinophils/100 WBC (Bld) 1.3 % 0-5 [facility] Work Phone: Glucose [Mass/Vol] 142 mg/dL 74-106 [facility] Work Phone: Comment on above: Fasting Glucose resu lt greater than or equal to 126 mg/dL suggests DIABETES MELLITUS per A.D.A. criteria. Neutrophils (Bld) [#/Vol] 2.1 10*3/uL 2.0-7.7 [facility] Work Phone: Neutrophils/100 WBC (Bld) 46.1 % 47-70 [facility] Work Phone: Potassium [Moles/Vol] 3.9 mmol/L 3.5-5.1 [facility] Work Phone: Protein [Mass/Vol] 6.9 g/dL 6.4-8.2 [facility] Work Phone: Sodium [Moles/Vol] 141 mmol/L 136-145 [facility] Work Phone: WBC (Bld) [#/Vol] 4.6 10*3/uL 4.4-11.0 [facility] Work Phone: Blood erythrocytes count (nu mber/volume)on 08-30-2021 RBC (Bld) [#/Vol] 3.71 10*6/uL 4.2-5.4 [facility] Work Phone: Blood hemoglobin measurement (mass/volume)on 08-30-2021 Hemoglobin (Bld) [Mass/Vol] 11.7 g/dL 12.0-15.0 [facility] Work Phone: Blood lymphocytes/100 leukoc yteson 08-30-2021 Lymphocytes/100 WBC (Bld) 41.1 % 19-41 [facility] Work Phone: Blood monocytes/100 leukocyt eson 08-30-2021 Monocytes/100 WBC (Bld) 10.9 % 0-10 [facility] Work Phone: Blood platelet mean volumeon 08-30-2021 Platelet mean volume (Bld) [Entitic vol] 10.3 fL 6.2-12.0 [facility] Work Phone: Determination of erythrocyte mean corpuscular volume (MCV)on 08-30-2021 MCV (RBC) [Entitic vol] 98.1 fL 81-99 [facility] Work Phone: Hematocrit Auto (Bld) [Volum e fraction]on 08-30-2021 Hematocrit (Bld) [Volume fraction] 36.4 % 37-47 [facility] Work Phone: Laboratory - Chemistry and C hemistry - challengeon 08-30-2021 ALP [Catalytic activity/Vol] 66 U/L 45-117 [facility] Work Phone: ALT [Catalytic activity/Vol] 20 U/L 13-56 [facility] Work Phone: CO2 [Moles/Vol] 29.0 mmol/L 21.0-32.0 [facility] Work Phone: Globulin (S) [Mass/Vol] 3.4 g/dL 2.2-4.2 [facility] Work Phone: Urea nitrogen/Creatinine [Mass ratio] 22.6 mg/mg 10-20 [facility] Work Phone: Laboratory - Hematology and Cell countson 08-30-2021 Erythrocyte distribution width (RBC) [Entitic vol] 49.0 fL 35.1-43.9 [facility] Work Phone: Erythrocyte distribution width (RBC) [Ratio] 13.5 % 11.6-14.6 [facility] Work Phone: Immature granulocytes/100 WBC (Bld) 0.200 % 0.0-0.9 [facility] Work Phone: Comment on above: IG% - Immature Granu locytes (promyelocytes, myelocytes and metamyelocytes) > 1% indicates that a LEFT SHIFT is Present. MCH (RBC) [Entitic mass] 31.5 pg 27.0-32.0 [facility] Work Phone: Nucleated RBC/100 WBC (Bld) [Ratio] 0 % 0-5 [facility] Work Phone: MCHC Auto (RBC) [Mass/Vol]on 08-30-2021 MCHC (RBC) [Mass/Vol] 32.1 g/dL 32-36 [facility] Work Phone: No Panel Informationon 08-30 Estimated GFR (MDRD) Amer 49 mL/min >60 [facility] Work Phone: Comment on above: GFR Calc Estimated GFR (MDRD) Non-Af Amer 41 mL/min >60 [facility] Work Phone: Comment on above: Non- GFR Calc Thyroid Stimulating Hormone (TSH) 2.19 uIU/mL 0.358-3.74 [facility] Work Phone: Vitamin D 25-Hydroxy 44.4 ng/mL [facility] Work Phone: Comment on above: Vitamin D 25(OH) Sta tus Range Deficiency <20 ng/mL (50nmol/L) Insufficiency 20 - 30 ng/mL (50 - 75 nmol/L) Sufficiency 30 - 100 ng/mL (75 - 250 nmol/L) Toxicity >100 ng/mL (>250 nmol/L) Platelets bldon 08-30-2021 Platelets (Bld) [#/Vol] 240 10*3/uL 150-450 [facility] Work Phone: Serum or plasma albumin nelida urement (mass/volume)on 08-30-2021 Albumin [Mass/Vol] 3.5 g/dL 3.2-5.0 [facility] Work Phone: Serum or plasma albumin/glob ulin mass ratioon 08-30-2021 Albumin/Globulin [Mass ratio] 1.0 {ratio} 0.9-2.4 [facility] Work Phone: Serum or plasma calcium nelida urement (mass/volume)on 08-30-2021 Calcium [Mass/Vol] 9.2 mg/dL 8.5-10.1 [facility] Work Phone: Serum or plasma creatinine m easurement (mass/volume)on 08-30-2021 Creatinine [Mass/Vol] 1.37 mg/dL 0.55-1.02 [facility] Work Phone: Comment on above: The validity of the calculated GFR & GFRAA in patients over 70 years has not been determined. Clinical correlation is essential. Serum or plasma urea nitroge n measurement (mass/volume)on 08-30-2021 Urea nitrogen [Mass/Vol] 31 mg/dL 7-18 [facility] Work Phone: Thin prep Papanicolaou smear with manual screeningon 08-30-2021 Thin prep Papanicolaou smear with manual screening 17 U/L 15-37 [facility] Work Phone: Thin prep Papanicolaou smear with manual screening 6 5-15 [facility] Work Phone: Clinical Summary: HMSPatient IDon 04-10-2019 SOP Margie C [facility] Work Phone: Clinical Summary: Scanned Hi story Summaryon 04-10-2019 adl form etoh alcohol performance Wine [facility] Work Phone: Cholesterol [Mass/Vol] High blood pressureDiabetes - non-insulin dependentHigh cholesterol [facility] Work Phone: consumes three or more drinks of alcohol (beer, wine, liquor) daily or almost daily less than [address] [facility] Work Phone: data entered by patient, alcohol (ethanol or ETOH) use Yes [facility]: data entered by patient, drug (of abuse) use No [facility] Work Phone: data entered by patient, Employer Name Retired [facility] Work Phone: data entered by patient, exercise history No [facility] Work Phone: data entered by patient, father's medical history High blood pressureKidney diseaseStroke/TIA [facility] Work Phone: Data entered by patient, history of past surgeries Hysterectomy [facility] Work Phone: data entered by patient, mother's medical history OsteoporosisCOPDHigh blood pressure [facility] Work Phone: Data entered by patient, problem list Patient Denies Medical Problems or Conditions [facility] Work Phone: data entered by patient, social history, current smoker never smoker [facility] Work Phone: data entered by patient, social history, marital status [facility] Work Phone: father of patient is alive or [facility] Work Phone: Housing Type: apartment, house, retirement, trailer, none House [facility] Work Phone: housing unit size (asthma environmental history, housing) (from single family to don't know) 3+ Fl[address] [facility] Work Phone: medical history of patient's brother(s) ArthritisHigh blood pressure [facility] Work Phone: medical history of patient's sister High blood pressure Crystal Cli [facility] Work Phone: mother of patient is alive or Alive [facility] Work Phone: Number of dependent children Yes [facility] Work Phone: Office Visit: New - 1st visi t with practice, Rm:on 04-10-2019 NEGATED: Highlighted Cheryl smoking status NHIS Tobacco smoking status NHIS [facility] Work Phone: Vital Signs Date Time Vital Sign Value Performing Clinician Facility NEGATED: Highlighted [id number] 14:23-0500 BMI (Body Mass Index) 24.42 kg/m2 Estefany Pollock LPN [facility] Work Phone: NEGATED: Highlighted [id number] 14:23-0500 Body weight 72.58 kg Estefany Pollock LPN [facility] Work Phone: NEGATED: Highlighted [id number] 14:23-0500 Body weight 73 kg Estefany Pollock PROCESS MECHANIC [facility] Work Phone: NEGATED: Highlighted [id number] 14:23-0500 BP Diastolic 76 mm[Hg] Estefany Pollock LPN [facility] Work Phone: NEGATED: Highlighted [id number] 14:23-0500 BP Systolic 128 mm[Hg] Estefany Pollock PROCESS MECHANIC [facility] Work Phone: NEGATED: Highlighted [id number] 14:23-0500 Height 172.72 cm Estefany Pollock PROCESS MECHANIC [facility] Work Phone: NEGATED: Highlighted [id number] 14:23-0500 Height 173 cm Estefany Pollock PROCESS MECHANIC [facility] Work Phone: NEGATED: Highlighted [id number] 14:23-0500 Pulse (Heart Rate) 67 /min Estefany Pollock PROCESS MECHANIC [facility] Work Phone: Encounters Encounter Date Encounter Type Care Provider Facility Start: 09-11-2024 ambulatory Marquis Chi Francisco Facility:[facility] Start: 03-13-2024 End: 03-13-2024 ambulatory Marquis Chi Francisco Facility:[facility] Start: 11-02-2023 End: 11-02-2023 ambulatory Marquis Chi Francisco Facility:[facility] Start: 11-01-2023 End: 11-01-2023 ambulatory Marquis Chi Francisco Facility:[facility] Start: 03-08-2023 End: 03-08-2023 ambulatory [facility] Work Phone: Start: 03-08-2023 End: 03-08-2023 Patient encounter procedure [facility]-Laboratory, Phy Office 3rd Flr Start: 09-20-2022 End: 09-20-2022 ambulatory [facility] Work Phone: Start: 09-20-2022 End: 09-20-2022 Patient encounter procedure [facility]-MRI - [facility] Work Phone: Start: 09-20-2022 End: 09-20-2022 ambulatory [facility] Work Phone: Start: 09-20-2022 End: 09-20-2022 Patient encounter procedure [facility]-Outpatient Breast Imaging Work Phone: Start: 09-04-2022 End: 09-04-2022 ambulatory [facility] Work Phone: Start: 09-04-2022 End: 09-04-2022 Patient encounter procedure [facility]-Laboratory, Phy Office 3rd Flr Start: 08-23-2022 End: 08-23-2022 ambulatory [facility] Work Phone: Start: 08-23-2022 End: 08-23-2022 Patient encounter procedure [facility]-Radiology, [facility] Work Phone: Start: 03-08-2022 End: 03-08-2022 ambulatory [facility] Work Phone: Start: 03-08-2022 End: 03-08-2022 Patient encounter procedure [facility]-Laboratory, Phy Office 3rd Flr Start: 12-30-2021 End: 12-30-2021 ambulatory [facility] Work Phone: Start: 12-30-2021 End: 12-30-2021 Patient encounter procedure [facility]-Laboratory Start: 11-24-2021 End: 11-24-2021 ambulatory [facility] Work Phone: Start: 11-24-2021 End: 11-24-2021 Patient encounter procedure [facility]-Laboratory, Specimen Start: 09-06-2021 End: 09-06-2021 Patient encounter procedure [facility]-Laboratory, Phy Office 3rd Flr Start: 08-30-2021 End: 08-30-2021 Patient encounter procedure [facility]-Laboratory, Phy Office 3rd Flr Start: 04-10-2019 End: 04-10-2019 Patient encounter procedure Dirk Rivero MD Work Phone: [facility] Work Phone: Procedures Date Procedure Procedure Detail Performing Clinician Start: 09-20-2022 Screening mammography Start: 09-20-2022 MRI of lumbar spine Start: 08-23-2022 X-ray of lumbosacral spine Start: 04-10-2019 End: 04-10-2019 Arthrocentesis aspir&/inj small [...] Treatment Date Care Activity Detail Author Start: 09-20-2022 Screening digital breast tomosynthesis bi BREAST TOMOSYNTHESIS [facility] Start: 09-20-2022 Screening mammography bi 2-view breast inc cad SCR MAMMO BI INCL CAD [facility] Start: 04-10-2019 End: 04-10-2019 Appointment Appointment [facility] Work Phone: Start: 04-10-2019 End: 04-10-2019 Radex hand minimum 3 views [facility] Work Phone: Patient Education Medications Crystal [facility] Work Phone: Payers Date Payer Category Payer Medicare [id number] 2023 Private Health Insurance [id number] 2023 Self-pay [id number] 2015 Medicaid [id number] 2015 Unknown [id number] 2011 [id number] Unknown [id number] Unknown [id number] Unknown [id number] Unknown [id number] Unknown [id number] Social History Date Type Detail Facility Start: 04-17-2021 End: 04-17-2021 Tobacco smoking status NHIS Unknown if ever smoked [facility] Start: 1955 Sex Assigned At Female [facility] NEGATED: Highlighted rowStart: 04-10-2019 End: 04-10-2019 Alcohol use Alcohol use [facility] Work Phone: NEGATED: Highlighted rowStart: 04-10-2019 End: 04-10-2019 Details of drug misuse behavior Details of drug misuse behavior [facility] Work Phone: NEGATED: Highlighted rowStart: 04-10-2019 End: 04-10-2019 Assertion Never smoker [facility] Work Phone: Evaluation note Note Date & Type Note Facility Evaluation note No assessment information availa ble [facility] Work Phone: Chief Complaint Chief Complaint Description Start Date bilateral hand pain Preliminary chief co mplaint data, not yet signed by the author as of Instructions Instruction Description Start Date Completed Advance Directives No Advanced Directives Records Found Advance Directive Response Recorded Date/ Time Living Will No April 17, 2 022 3:01pm Power of Oceanologist No April 17, 2021 3:01pm Advance Directive Response Recorded Date/ Time Living Will No April 17 2 022 2:01pm Power of Oceanologist No April 17, 2021 2:01pm Assessments There may be information available, but it has not been provided by the sender. Review of System There may be information available, but it has not been provided by the sender. Family History No Family History Records Found Relationship Condition Age at Onset Recorded Date/T kristen Not Specified Cerebrovascular accident (CVA) Unknown History of Present Illness There may be information available, but it has not been provided by the sender. Chief Complaint and Reason for Visit Chief Complaint DUE ON OR AROUND 09/09 PER ORDER Chief Complaint LOW BACK PAIN Chief Complaint LOW BACK PAIN SCREENING Chief Complaint LOW BACK PAIN SCREENING LUMBAR RADICULAPATHY Summary Purpose Additional Source Comments Reason for Visit (unrecogniz ed section and content) Reason For Visit Description New - 1st visit with practice Preliminary reason f or visit data, not yet signed by the author as of bilateral hand pain Goals (unrecognized section and content) Goals may be documented in a n alternate sectionGoals may be documented in an alternate sectionGoals may be documented in an alternate sectionGoals may be documented in an alternate sectionGoals may be documented in an alternate sectionGoals may be documented in an alternate sectionGoals may be documented in an alternate sectionGoals may be documented in an alternate sectionGoals may be documented in an alternate section Care Teams (unrecognized sec tion and content) Team Status: Active Member Role Status Dates Dr. Marquis Singh MD Family Provider Active Dr. Marquis Singh MD Primary Care Provider Active Team Status: Inactive Member Role Status Dates Dr. Marquis Singh MD Primary Care Provider Active Dr. Pau Jack DO Attending Provider Active Team Status: Inactive Member Role Status Dates Dr. Marquis Singh MD Primary Care Provider, Attending Provider Active Team Status: Inactive Member Role Status Dates Dr. Marquis Singh MD Primary Care Provi francisco j, Attending Provider, Referring Provider Active Team Status: Inactive Member Role Status Dates Dr. Marquis Singh MD Primary Care Provider, Referring Provider Active Dr. Pau Jack DO Attending Provider Active INFORMATION SOURCE (unrecogn ized section and content) DATE CREATED AUTHOR 09/14/2024 [facility] FOR RECORDS PERTAINING TO PATIENTS WHO ARE [...] BE BASED ON THE PRIMARY CLINICAL RECORDS. [facility]. provides no warranty or guarantee of the accuracy or completeness of information in this document.
== END | disposition home or self-care (01) ==
LOC: LAB 09-16 08:39
PROVIDERS: PCP Family Medicine Geriatric Medicine; Visit Provider Family Medicine Geriatric Medicine
DX: E11.65 Type 2 diabetes mellitus with hyperglycemia (principal); I10 Essential (primary) hypertension; E78.5 Hyperlipidemia, unspecified; E55.9 Vitamin D deficiency, unspecified
CPT/HCPCS: 82043; 82570

== ENCOUNTER → 2024-10-06 | Outpatient (CLI) | payer MEDICARE, SELFPAY ==
--- NOTE | 2024-10-06 12:24 | BI_ITS ---
EXAM: SCRN MAMM (CAD)W/ROLAND BILAT DATE: 10/06/2024 CLINICAL HISTORY: F, Age 68 y/o , SCREENING TECHNIQUE: SCRN MAMM (CAD)W/ROLAND BILAT COMPARISON: Prior exam(s) were compared FINDINGS: TISSUE DENSITY: The breasts are heterogeneously dense, which may obscure small masses. Bilateral Breast Mammographic Findings: No suspicious masses, calcifications or other abnormalities are identified. BI/SCRN MAMM (CAD)W/ROLAND BILAT IMPRESSION: No mammographic evidence of malignancy in either breast OVERALL FINAL ASSESSMENT BI-RADS 1: NEGATIVE. RECOMMENDATION: Routine annual follow-up in 1 Year A letter with findings and recommendations will be mailed to the patient. Reading Location: [id number]
== END | disposition home or self-care (01) ==
LOC: OPBI 12:23
PROVIDERS: PCP Family Medicine Geriatric Medicine; Referring Provider Family Medicine Geriatric Medicine; Visit Provider Family Medicine Geriatric Medicine
DX: Z12.31 Encounter for screening mammogram for malignant neoplasm of breast (principal)
CPT/HCPCS: 77063; 77067

== ENCOUNTER → 2024-10-07 | Outpatient (CLI) | payer MEDICARE, SELFPAY ==
--- NOTE | 2024-10-07 09:31 | EKG12_ITS ---
Test Reason : CP Blood Pressure : */* mmHG Vent. Rate : 87 BPM Atrial Rate : 87 BPM P-R Int : 142 ms QRS Dur : 84 ms QT Int : 358 ms P-R-T Axes : 64 81 67 degrees QTcB Int : 430 ms Normal sinus rhythm Normal ECG Confirmed by KARO BUENROSTRO, JOE ([id number]), subeditor MARY BENTLEY ([id number]) on 10/08/2024 9:33:23 AM Referred By: Marquis Singh Confirmed By: JOE HUDDLESTON MD
== END | disposition home or self-care (01) ==
LOC: PSN 09:19
PROVIDERS: PCP Family Medicine Geriatric Medicine; Referring Provider Family Medicine Geriatric Medicine; Visit Provider Family Medicine Geriatric Medicine
DX: Z12.31 Encounter for screening mammogram for malignant neoplasm of breast (principal); M54.2 Cervicalgia; R07.9 Chest pain, unspecified; M75.102 Unspecified rotator cuff tear or rupture of left shoulder, not specified as traumatic
CPT/HCPCS: 93005

== ENCOUNTER → 2024-12-11 | Outpatient (CLI) | payer MEDICARE, MEDICAID, SELFPAY ==
[2024-12-11 13:54] LABS: Mucous, Urine 0 SEEN /hpf (<or=2+); Red Blood Cells-Urine 0 SEEN /hpf (0-5)
[2024-12-11 14:27] LABS: Color, Urine Yellow (Yellow); Glucose, Dipstick 1000 mg/dl (Normal); Ketone-Dipstick Negative (Negative); Leukocyte Esterase-Dipstick Negative /ul (Negative); Nitrite-Dipstick Negative (Negative); Occult Blood-Urine Negative /ul (Negative); Protein-Dipstick Negative (Negative); Specific Gravity, Urine 1.015 (1.002-1.030); Urine Bilirubin Dipstick Negative (Negative)
[2024-12-11 14:35] LABS: Squamous Epithelial Cells - UA 0-5 SEEN /hpf (5-10)
--- OUTSIDE RECORDS SUMMARY | 2024-12-11 16:24 | XMS RPT_ITS | CCD ---
Author Organization [facility] Care Team Providers Care Order Entry Clerk Name Role Phone Mat BUENROSTRO, Dirk White Unavailable Roger BUENROSTRO, Dr. Marquis Hawkins Primary Care Provider [phone] Roger BUENROSTRO, Dr. Marquis Hawkins Attending Provider Roger BUENROSTRO, Dr. Marquis Hawkins Referring Provider Roger BUENROSTRO, Dr. Marquis Hawkins Primary Care Physician Roger BUENROSTRO, Dr. Marquis Hawkins Attending Physician [phone] Darryl BUENROSTRO, Dr. Gary Attending Physician Roger, Marquis Chi Attending Unavailable Roger, Marquis Chi Primary Care Unavailable Roger, Marquis Chi Referring Unavailable Darryl, Hubbard Attending Unavailable Roger, Marquis Chi Primary Care Unavailable Darryl, Abdirahman Attending Unavailable Roger, Marquis Chi Referring Unavailable Roger, Marquis Chi Primary Care Unavailable Roger, Marquis Chi Attending Unavailable Roger, Marquis Chi Primary Care Unavailable Roger, Marquis Chi Referring Unavailable Roger, Marquis Chi Primary Care Unavailable Roger, Marquis Chi Attending Unavailable Darryl, Hubbard Attending Unavailable Darryl, Abdirahman Referring Unavailable Roger, Marquis Chi Primary Care Unavailable Darryl, Abdirahman Referring Unavailable Roger, Marquis Chi Primary Care Unavailable Darryl, Hubbard Attending Unavailable Roger, Marquis Chi Attending Unavailable Roger, Marquis Chi Primary Care Unavailable Roger, Marquis Chi Referring Unavailable Roger, Marquis Chi Primary Care Unavailable Roger, Marquis Chi Attending Unavailable Medications Current Medications Medication Drug Class(es) Dates Sig (Normalized) Sig (Original) atorvastatin 40 mg oral tablet (19 sources) HMG-CoA Reductase Inhibitor Start: 09-18-2024 take 1 tablet by mouth once daily Atorvastatin 40 mg tablet Active 40 mg PO daily September 18, 2024 2:50pm Complies with drug therapy Start: 11-04-2018 End: 09-18-2024 Atorvastatin 40 mg tablet Di scontinued PO November 04, 2018 12:00am September 18, 2024 2:51pm Start: 11-04-2018 LIPITOR 40 MG TABS ATORVASTATIN CALCIUM [id number] Dirk Rivero MD cholecalciferol 0.025 mg oral tablet (5 sources) Vitamin D Start: 09-18-2024 Cholecalcifero l (Vitamin D3) (Vitamin D3) 25 mcg (1,000 unit) tablet Active PO September 18, 2024 12:00am Complies with drug therapy Start: 04-10-2019 VITAMIN D TABL ET CHOLECALCIFEROL TABS Dirk Rivero MD dapagliflozin 10 mg oral tablet (4 sources) Sodium-Glucose Cotransporter 2 Inhibitor Start: 09-18-2024 take 1 tablet by mouth once daily Dapagliflozin Propanediol (Farxiga) 10 mg tablet Active 10 mg PO daily September 18, 2024 12:00am Complies with drug therapy hydroCHLOROthiazide 12.5 mg / olmesartan medoxomil 40 mg oral tablet (4 sources) Thiazide Diuretic, Angiotensin 2 Receptor Miguel Start: 09-18-2024 Olmesartan-Hydroc hlorothiazide 40-12.5 mg tablet Active 1 {tbl} PO daily September 18, 2024 12:00am Complies with drug therapy metoprolol tartrate 25 mg oral tablet (18 sources) beta-Adrenergic Miguel Start: 09-18-2024 take 1 tablet by mouth twice daily Metoprolol Tartrate 25 mg tablet Active 25 mg PO TWICE A DAY September 18, 2024 2:50pm Complies with drug therapy Start: 11-04-2018 End: 09-18-2024 Metoprolol Tartrate 25 mg ta blet Discontinued PO November 04, 2018 12:00am September 18, 2024 2:51pm Start: 11-04-2018 Metoprolol Tar trate Active PO November 03, 2018 11:00pm pioglitazone 15 mg oral tablet (8 sources) Peroxisome Proliferator Receptor alpha Agonist, Peroxisome Proliferator Receptor gamma Agonist, Thiazolidinedione Start: 09-18-2024 take 1 tablet by mouth once daily Pioglitazone (Actos) 15 mg tablet Active 15 mg PO daily September 18, 2024 12:00am Complies with drug therapy Start: 09-18-2024 End: 11-19-2024 take 1 tablet by mouth once daily Pioglitazone 30 mg tablet Discontinued 30 mg PO daily September 18, 2024 12:00am November 19, 2024 2:57pm Completed/Discontinued Medications Medication Drug Class(es) Dates Sig (Normalized) Sig (Original) aspirin 81 mg delayed release oral tablet (1 source) Platelet Aggregation Inhibitor, Nonsteroidal Anti-inflammatory Drug Start: 04-10-2019 ASPIRIN 81 MG [facility] ASPIRIN [id number] Dirk Rivero MD diclofenac sodium 0.01 mg/mg topical gel (1 source) Nonsteroidal Anti-inflammatory Drug Start: 04-10-2019 End: 05-09-2019 VOLTAREN 1 % GEL Apply 2 grams to affected area twice per day DICLOFENAC SODIUM [id number] Dirk Rivero MD hydroCHLOROthiazide 12.5 mg / losartan potassium 100 mg oral tablet (14 sources) Thiazide Diuretic, Angiotensin 2 Receptor Miguel Start: 11-04-2018 End: 09-18-2024 Losartan-Hydrochl orothiazide 100-12.5 mg tablet Discontinued PO 30 0 November 04, 2018 12:00am September 18, 2024 2:50pm Start: 11-04-2018 Losartan-[place] chlorothiazide Active PO 30 November 03, 2018 11:00pm losartan potassium 25 mg oral tablet (1 source) Angiotensin 2 Receptor Miguel Start: 04-10-2019 LOSARTAN POTASSIUM 2 5 MG TABS LOSARTAN POTASSIUM [id number] Dirk Rivero MD metFORMIN hydrochloride 1000 mg oral tablet (15 sources) Biguanide Start: 04-10-2019 METFORMIN HCL 1000 MG TABS METFORMIN HCL [id number] Dirk Rivero MD Start: 11-04-2018 End: 09-18-2024 Metformin 1,000 mg tablet Di scontinued PO 60 0 November 04, 2018 12:00am September 18, 2024 2:50pm Start: 11-04-2018 Metformin Acti ve PO 60 November 03, 2018 11:00pm Problems Active Problems Problem Classification Problem Date Documented Date Episodic/Chronic Abdominal hernia (4 sources) Left inguinal hernia ; Translations: [Unilateral inguinal hernia, without obstruction or gangrene, not specified as recurrent] 09-18-2024 Episodic Chronic kidney disease (4 sources) Chronic kidney disease stage 3B ; Translations: [Stage 3b chronic kidney disease] 09-18-2024 Chronic Diabetes mellitus with complications (1 source) Type 2 diabetes mellitus with hyperglycemia; Translations: [Type 2 diabetes mellitus with hyperglycemia] Onset: 11-07-2024 Chronic Diabetes mellitus without complication (5 sources) Diabetes mellitus; Translations: [Type 2 diabetes mellitus without complications] Onset: 04-10-2019 04-10-2019 Chronic Disorders of lipid metabolism (6 sources) Hyperlipidemia; Translations: [Hyperlipidemia, unspecified] Onset: 11-19-2024 09-18-2024 Chronic Esophageal disorders (4 sources) Gastroesophageal reflux disease; Translations: [Gastro-esophageal reflux disease without esophagitis] 09-18-2024 Chronic Essential hypertension (6 sources) Hypertensive disorder; Translations: [Essential (primary) hypertension] Onset: 11-19-2024 09-18-2024 Chronic Nonspecific chest pain (5 sources) Chest pain; Translations: [Chest pain, unspecified] Onset: 11-19-2024 09-18-2024 Episodic Nutritional deficiencies (4 sources) Vitamin D deficiency; Translations: [Vitamin D deficiency, unspecified] 09-18-2024 Chronic Osteoarthritis (2 sources) Localized, primary osteoarthritis of the hand; Translations: [Primary osteoarthritis, left hand] Onset: 04-10-2019 04-10-2019 Chronic Other diseases of kidney and ureters (4 sources) Cyst of kidney; Translations: [Cyst of kidney, acquired] 09-18-2024 Episodic Other lower respiratory disease (2 sources) Dyspnea on exertion; Translations: [Shortness of breath] 11-19-2024 Episodic Other lower respiratory disease (1 source) Shortness of breath; Translations: [Shortness of breath] Onset: 12-08-2024 Episodic Other non-traumatic joint disorders (2 sources) Finger joint stiff; Translations: [Stiffness of right hand, not elsewhere classified] Onset: 04-10-2019 04-10-2019 Episodic Other screening for suspected conditions (not mental disorders or infectious disease) (1 source) Encounter for screening mammogram for malignant neoplasm of breast; Translations: [Encounter for screening mammogram for malignant neoplasm of breast] Onset: 08-29-2025 Episodic Residual codes; unclassified (14 sources) Edema of right lower limb; Translations: [Localized edema] 11-04-2018 Episodic Spondylosis; intervertebral disc disorders; other back problems (1 source) Cervicalgia; Translations: [Cervicalgia] Onset: 11-07-2024 Episodic Sprains and strains (14 sources) Sprain of ankle; Translations: [Sprain of unspecified ligament of right ankle, initial encounter] 04-25-2021 Episodic Past or Other Problems Problem Classification Problem Date Documented Da te Episodic/Chronic Unclassified (1 source) Problem Results Test Name Value Interpretation Reference Range Facility Cardiology Visit Reporton Cardiology Visit Report [facility] [address] [place], [place] [address] OFFICE VISIT Date of Service: 11/19/24 MR#: [id number] Acct: [id number] Name: JEYSON DAVE Rep #: [id number] : 1955 Provider: Dr. Abdirahman Andrews MD Age/Sex: 68/F Location: [facility] [place] Status: Signed HPI HPI History of Present Illness Details: Pleasant 68-year-old lady with a history of hypertension diabetes mellitus hyperlipidemia who has been complaining of shortness of breath with activity recently as well as occasional chest fluttering. She has not seen a transit man in the past she did have an echocardiogram performed 10 years ago demonstrating an ejection fraction of 65% with mild tricuspid regurgitation. She has not had any chest pain per se and no pedal edema she has been compliant with her medications. Her physical exam demonstrates clear lung tiwari regular rate and rhythm no pedal edema electrocardiogram demonstrates sinus rhythm with a rate of 73 bpm and no acute changes. 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 Operator Required: No Accompanied by: Self Is patient in pain?: No Allergies No Known Allergies Allergy (Verified 11/19/24 14:56) Medications ???Medication ???Instructions ???Recorded ???Confirmed ???Type atorvastatin 40 mg tablet 40 mg PO QDAY #30 tabs 09/18/24 History cholecalciferol (vitamin D3) 25 PO 09/18/24 11/19/24 History mcg (1,000 unit) tablet (Vitamin D3) dapagliflozin propanediol 10 mg 10 mg PO QDAY 09/18/24 11/19/24 Hi story tablet (Farxiga) metoprolol tartrate 25 mg tablet 25 mg PO BID #30 tabs 09/18/2403/15 History olmesartan 40 1 tab PO QDAY 09/18/24 11/19/24 Hi story mg-hydrochlorothiazide 12.5 mg tablet pioglitazone 15 mg tablet (Actos) 15 mg PO QDAY 09/18/24 11/19/24 H istory Have you fallen in the past year?: No PFSH Medical History Vitamin D deficiency Hyperlipidemia Left inguinal hernia GERD (gastroesophageal reflux disease) Bilateral renal cysts Stage 3b chronic kidney disease (CKD) Chest pain Diabetes HTN (hypertension) Surgical History Hx of hysterectomy for benign disease Family History Father Afib Other CVA (cerebral vascular accident) Social History Smoking Status: Never smoker alcohol intake: never substance use type: does not use ROS Const Const: Negative for fatigue, weakness, daytime sleepiness or difficulty sleeping ENT ENT: Negative for dizziness or Nosebleed/epistaxis Cardio Chest Pain: No Palpitations: Yes (fluttering ) Edema: None Resp Respiratory: Positive for SOB with activity; Negative for SOB at rest, SOB orthopnea SOB lying down or Cough GI GI: Negative nausea, vomiting or heartburn Neuro Neuro: Negative for dizziness, lightheadedness, near syncope or weakness Endo Endo: Negative for fatigue Cardiology Exam Const Appearance: cooperative, healthy appearing, no acute distress, well developed and well groomed Nutritional Appearance: average body habitus and well nourished Orientation: alert, awake and oriented x3 Head Head: normal to inspection, normocephalic and atraumatic Ears: hearing grossly normal bilaterally and external ears normal Nose: external nose normal, nares normal, nasal mucous membranes and turbinates normal, septum normal and no nasal discharge Face and Sinus: face symmetric Mouth: oral mucosae normal, tongue normal, oropharynx normal and moist mucous membranes Teeth and gingiva: dentition normal Throat: posterior oropharynx normal, tonsils normal and uvula midline Eyes General: appearance normal, both eyes and all related structures Eyelids: eyelids normal Conjunctivae: conjunctivae normal Pupils: PERRL, normal by confrontation and accommodation normal EOM: EOM intact bilaterally Neck Neck: normal visual inspection, trachea midline and no JVD JVD: +5 Carotids: normal carotid upstroke and bounding pulses Chest Chest inspection: normal inspection of the chest, symmetric chest movement and normal respiratory effort Auscultation: Bilateral: Clear to Auscultation Cardio Palpation: normal PMI Rate: regular rate Rhythm: regular rhythm Heart sounds: S1 normal, S2 normal and normal, physiologic split S2; Negative rub, gallop or murmur GI GI: normal to inspection, soft, no hepatosplenomegaly and bowel sounds present Neuro Ge (more content not included)... Normal [facility] Electrocardiogram reportOrde red By: Abdirahman Andrews on 10-08-2024 EKG study [facility] [address] [place] [address] 12 Lead EKG 10/07/24 0937 MR#: [id number] Acct: [id number] Name: JEYSON DAVE Rep #:[id number] : 1955 68 From: Abdirahman Andrews MD Attending Dr: Dr. Marquis Singh MD Status: REG I Ordering Dr: Marquis Singh MD Date: Location: [facility] Sex: F C Admitted: Test Reason : CP Blood Pressure : */* mmHG Vent. Rate : 87 BPM Atrial Rate : 87 BPM P-R Int : 142 ms QRS Dur : 84 ms QT Int : 358 ms P-R-T Axes : 64 81 67 degrees QTcB Int : 430 ms Normal sinus rhythm Normal ECG Confirmed by DARRYL BUENROSTRO, ABDIRAHMAN ([id number]), editor city MARY BENTLEY ([id number]) on 10/08/2024 9:33:23 AM Referred By: Marquis Singh Confirmed By: ABDIRAHMAN ANDREWS MD 10/08/2433 Date _ Abdirahman Andrews MD CC: Dr. Marquis Singh MD ~ Signed [facility] Other 12 Lead EKGon 10-07-2024 12 Lead EKG [facility] Services [address] [place] [address] 12 Lead EKG 10/07/24 0937 MR#: [id number] Acct: [id number] Name: JEYSON DAVE Rep #: [id number] : 1955 68 From: Abdirahman Andrews MD Attending Dr: Dr. Marquis Singh MD Status: REG CLI Ordering Dr: Marquis Singh MD Date: 10/07/24 Location: [facility] Sex: F C Admitted: Test Reason : CP Blood Pressure : */* mmHG Vent. Rate : 87 BPM Atrial Rate : 87 BPM P-R Int : 142 ms QRS Dur : 84 ms QT Int : 358 ms P-R-T Axes : 64 81 67 degrees QTcB Int : 430 ms Normal sinus rhythm Normal ECG Confirmed by ABDIRAHMAN ANDREWS MD ([id number]), editor city [place]LEY ([id number]) on 10/08/2024 9:33:23 AM Referred By: Marquis Singh Confirmed By: ABDIRAHMAN ANDREWS MD 10/08/2433 Date Abdirahman Andrews MD CC: Dr. Marquis Singh MD Signed Normal [facility] Breast imaging reportOrdered By: Anu Rizzo on 10-06-2024 Study report [facility] Imaging Services [address] [place], [place] [id number] SCRN MAMM (CAD)W/ROLAND BILAT MR#: [id number] Acct: [id number] Name: JEYSON DAVE Rep #: [id number] : 1955 F 68 From: Tray Cesar MD PCP: Dr. Marquis Singh MD Status: REG C Study:SCRN MAMM (CAD)W/ROLAND BILAT Date of Exa m: 10/06/24 Exam# [id number] Ordering Dr: Marquis Singh MD EXAM: SCRN MAMM (CAD)W/ROLAND BILAT DATE: 10/06/2024 CLINICAL HISTORY: F, Age 68 y/o , SCREENING TECHNIQUE: SCRN MAMM (CAD)W/ROLAND BILAT COMPARISON: Prior exam(s) were compared FINDINGS: TISSUE DENSITY: The breasts are heterogeneously dense, which may obscure small masses. Bilateral Breast Mammographic Findings: No suspicious masses, calcifications or other abnormalities are identified. BI/SCRN MAMM (CAD)W/ROLAND BILAT IMPRESSION: No mammographic evidence of malignancy in either breast OVERALL FINAL ASSESSMENT BI-RADS 1: NEGATIVE. RECOMMENDATION: Routine annual follow-up in 1 Year A letter with findings and recommendations will be mailed to the patient. Reading Location: [id number] CC: Dr. Marquis Singh MD ~ [employer]atswain: Signed [facility] SCRN MAMM (CAD)W/ROLAND BILATo n 10-06-2024 SCRN MAMM (CAD)W/ROLAND BILAT [facility] Imaging Services [address] [place] [address] SCRN MAMM (CAD)W/ROLAND BILAT MR#: [id number] Acct: [id number] Name: JEYSON DAVE Rep #: [id number] : 1955 F 68 From: Anu Mcneil i, MD PCP: Dr. Marquis Singh MD Status: REG CL Study: SCRN MAMM (CAD)W/ROLAND BILAT Date of Exam: 09/19 10/13 Exam# [id number] Ordering Dr: Marquis Singh MD EXAM: SCRN MAMM (CAD)W/ROLAND BILAT DATE: 10/06/2024 CLINICAL HISTORY: F, Age 68 y/o , SCREENING TECHNIQUE: SCRN MAMM (CAD)W/ROLAND BILAT COMPARISON: Prior exam(s) were compared FINDINGS: TISSUE DENSITY: The breasts are heterogeneously dense, which may obscure small masses. Bilateral Breast Mammographic Findings: No suspicious masses, calcifications or other abnormalities are identified. BI/SCRN MAMM (CAD)W/ROLAND BILAT IMPRESSION: No mammographic evidence of malignancy in either breast OVERALL FINAL ASSESSMENT BI-RADS 1: NEGATIVE. RECOMMENDATION: Routine annual follow-up in 1 Year A letter with findings and recommendations will be mailed to the patient. Reading Location: [id number] CC: Dr. Marquis Singh MD [employer]: Signed Normal [facility] Microalb:Creat Ratio,Random URon 09-15-2024 Creatinine [Mass/Vol] 111.00 mg/dL Normal 28.00- 217.0 0 [facility] Comment on above: Performed By: #### L 502.0250 ####[facility] [address] [place], [place], [id number] MALB:CREAT UNABLE TO CALCULATE Normal <30 mg/g CRE [facility] Comment on above: Performed By: #### L 502.0250 ####[facility] [address] [place], [place], [id number] MICROALBUMIN,UR < 12.0 Normal <20 mg/L [facility] Comment on above: Performed By: #### L 502.0250 ####[facility] [address] [place], [place], [id number] Microalbumin/creat ratio urO rdered By: Marquis Singh on 09-15-2024 Urine microalbumin/creatinine ratio measurement UNABLE TO CALCULATE mg/g CRE <30 [facility] Random urine creatinine nelida urement (mass/volume)Ordered By: Marquis Singh on 09-15-2024 Creatinine Unsp time (U) [Mass/Vol] 111.00 mg/dL 28.00-217.0 0 [facility] Urine albumin measurement wi detection limit of 20 mg/L or less (mass/volume)Ordered By: Marquis Roger on 09-15-2024 Albumin DL <= 20 mg/L (U) [Mass/Vol] < 12.0 mg/L <20 mg/L [facility] Absolute lymphocyte countOrd ered By: Marquis Roger on 09-11-2024 Lymphocytes Auto (Unsp spec) [#/Vol] 2.33 10*3/uL 0.83-4.51 [facility] Absolute neutrophil countOrd ered [facility]: [facility] 09-11-2024 Neutrophils (Bld) [#/Vol] 4.1 10*3/uL 2.0-7.7 [facility] Anion gap in Serum or Plasma Ordered By: Marquis Singh on 09-11-2024 Anion gap [Moles/Vol] 13 mmol/L 5- [facility] Automated lymphocyte count a s percentage of total leukocytesOrdered By: Marquis Roger on 09-11-2024 Lymphocytes/100 WBC Auto (Unsp spec) 32.1 % - [facility] BUN/creatinine ratioOrdered By: [facility] on 09-11-2024 Urea nitrogen/Creatinine [Mass ratio] 15.9 mg/mg 10- [facility] Basophil percentageOrdered B y: Marquis Singh on 09-11-2024 Basophils/100 WBC (Bld) 0.6 % 0-1 [facility] Bilirubin, totalOrdered By: Marquis Roger on 09-11-2024 Bilirubin [Mass/Vol] 0.51 mg/dL 0.00-1.30 [facility] CBC W/Diff, Automatedon 08-20 Absolute Lymph 2.33 X10 3/uL Normal 0.83-4.51 [facility] Comment on above: Performed By: #### L 501.9985, L501.9520, L500.4100, L500.4050, L100.0100, L506.1001 #### [facility] [address] [place] [address]. [place], [address] Absolute Neut 4.1 X10 3/uL Normal 2.0-7.7 [facility] Comment on above: Performed By: #### L 501.9985, L501.9520, L500.4100, L500.4050, L100.0100, L506.1001 #### [facility] [address] [place], [address] Basophils/100 WBC (Bld) 0.6 % Normal 0-1 [facility] Comment on above: Performed By: #### L 501.9985, L501.9520, L500.4100, L500.4050, L100.0100, L506.1001 #### [facility] [address] [place], [address] Eosinophils/100 WBC (Bld) 1.0 % Normal 0-5 [facility] Comment on above: Performed By: #### L 501.9985, L501.9520, L500.4100, L500.4050, L100.0100, L506.1001 #### [facility] [address] [place], [address] Erythrocyte distribution width (RBC) [Ratio] 13.5 % Normal 11.6-14.6 [facility] Comment on above: Performed By: #### L 501.9985, L501.9520, L500.4100, L500.4050, L100.0100, L506.1001 #### [facility] [address] [place], [address] Hematocrit (Bld) [Volume fraction] 40.7 % Normal 37-47 [facility] Comment on above: Performed By: #### L 501.9985, L501.9520, L500.4100, L500.4050, L100.0100, L506.1001 #### [facility] [address] [place], [address] Hemoglobin (Bld) [Mass/Vol] 13.6 g/dL Normal 12.0-15.0 [facility] Comment on above: Performed By: #### L 501.9985, L501.9520, L500.4100, L500.4050, L100.0100, L506.1001 #### [facility] [address] [place], [address] IG% 0.300 Normal 0.0-0.9 [facility] Comment on above: Result Comment: IG% - Immature Granulocytes (promyelocytes, myelocytes and metamyelocytes) > 1% indicates that a LEFT SHIFT is Present. Performed By: #### L 501.9985, L501.9520, L500.4100, L500.4050, L100.0100, L506.1001 #### [facility] [address] [place], [address] Lymphocytes/100 WBC (Bld) 32.1 % Normal 19-41 [facility] Comment on above: Performed By: #### L 501.9985, L501.9520, L500.4100, L500.4050, L100.0100, L506.1001 #### [facility] [address] [place], [address] MCH (RBC) [Entitic mass] 31.8 pg Normal 27.0-32.0 [facility] Comment on above: Performed By: #### L 501.9985, L501.9520, L500.4100, L500.4050, L100.0100, L506.1001 #### [facility] [address] [place], [address] MCHC (RBC) [Mass/Vol] 33.4 g/dL Normal 32-36 [facility] Comment on above: Performed By: #### L 501.9985, L501.9520, L500.4100, L500.4050, L100.0100, L506.1001 #### [facility] [address] [place], [address] MCV (RBC) [Entitic vol] 95.1 fL Normal 81-99 [facility] Comment on above: Performed By: #### L 501.9985, L501.9520, L500.4100, L500.4050, L100.0100, L506.1001 #### [facility] [address] [place], [address] Monocytes/100 WBC (Bld) 9.5 % Normal 0-10 [facility] Comment on above: Performed By: #### L 501.9985, L501.9520, L500.4100, L500.4050, L100.0100, L506.1001 #### [facility] [address] [place], [address] Neutrophils/100 WBC (Bld) 56.5 % Normal 47-70 [facility] Comment on above: Performed By: #### L 501.9985, L501.9520, L500.4100, L500.4050, L100.0100, L506.1001 #### [facility] [address] [place], [address] Nucleated RBC (Bld) [#/Vol] 0 10*3/uL Normal 0-5 [facility] Comment on above: Performed By: #### L 501.9985, L501.9520, L500.4100, L500.4050, L100.0100, L506.1001 #### [facility] [address] [place], [address] Platelet mean volume (Bld) [Entitic vol] 9.9 fL Normal 6.2-12.0 [facility] Comment on above: Performed By: #### L 501.9985, L501.9520, L500.4100, L500.4050, L100.0100, L506.1001 #### [facility] [address] [place], [address] Platelets (Bld) [#/Vol] 237 10*3/uL Normal 150-450 [facility] Comment on above: Performed By: #### L 501.9985, L501.9520, L500.4100, L500.4050, L100.0100, L506.1001 #### [facility] [address] [place], [address] RBC (Bld) [#/Vol] 4.28 10*6/uL Normal 4.2-5.4 [facility] Comment on above: Performed By: #### L 501.9985, L501.9520, L500.4100, L500.4050, L100.0100, L506.1001 #### [facility] [address] [place], [address] ( RDW SD 47.7 fl High 35.1-43.9 [facility] Comment on above: Performed By: #### L 501.9985, L501.9520, L500.4100, L500.4050, L100.0100, L506.1001 #### [facility] [address] [place], [address] WBC (Bld) [#/Vol] 7.3 10*3/uL Normal 4.4-11.[address] [facility] Comment on above: Performed By: #### L 501.9985, L501.9520, L500.4100, L500.4050, L100.0100, L506.1001 #### [facility] [address] [place], [address] (056 Calculated very low density lipoprotein (VLDL) cholesterol measurementOrdered By: Marquis Singh on 09-11-2024 Calculated very low density lipoprotein (VLDL) cholesterol measurement 32 mg/dL 5-40 [facility] Carbon dioxide, total [Moles /volume] in Central venous bloodOrdered By: Marquis Singh on 09-11-2024 CO2 [Moles/Vol] 23.8 mmol/L 21.0-32.0 [facility] Cerv Spine 2 or 3 Viewson Cerv Spine 2 or 3 Views [facility] Imaging Services [address] [place], [place] [id number] Cerv Spine 2 or 3 Views MR#: [id number] Acct: [id number] Name: JEYSON DAVE Rep #: [id number] : 1955 F 68 From: Jeff Francisco MD PCP: Dr. Marquis Singh MD Status: REG CLI Study: Cerv Spine 2 or 3 Views Date of Exam: 09/11/24 Exam# [id number] Ordering Dr: Marquis Singh MD EXAM: XR [...] the cervical spine as described. Reading Location: [facility] CC: Dr. Marquis Singh MD [employer]: Signed Normal [facility] Chloride assayOrdered By: Erick Singh on 09-11-2024 Chloride [Moles/Vol] 103 mmol/L 98-108 [facility] Comprehensive Metabolic Prof ilon 09-11-2024 Albumin [Mass/Vol] 4.0 g/dL Normal 3.4-4.[address] [facility] Comment on above: Performed By: #### L 501.9985, L501.9520, L500.4100, L500.4050, L100.0100, L506.1001 #### [facility] [address] [place], [address] Albumin/Globulin [Mass ratio] 1.3 {ratio} Normal 0.9-2.4 [facility] Comment on above: Performed By: #### L 501.9985, L501.9520, L500.4100, L500.4050, L100.0100, L506.1001 #### [facility] [address] [place], [address] ALK PHOS 105 U/L High 35-104 [facility] Comment on above: Performed By: #### L 501.9985, L501.9520, L500.4100, L500.4050, L100.0100, L506.1001 #### [facility] [address] [place], [address] ALT [Catalytic activity/Vol] 15 U/L Normal <=34 [facility] Comment on above: Performed By: #### L 501.9985, L501.9520, L500.4100, L500.4050, L100.0100, L506.1001 #### [facility] [address] [place], [address] AST [Catalytic activity/Vol] 20 U/L Normal <=31 [facility] Comment on above: Performed By: #### L 501.9985, L501.9520, L500.4100, L500.4050, L100.0100, L506.1001 #### [facility] [address] [place], [address] Bilirubin [Mass/Vol] 0.51 mg/dL Normal 0.00-1.30 [facility] Comment on above: Performed By: #### L 501.9985, L501.9520, L500.4100, L500.4050, L100.0100, L506.1001 #### [facility] [address] [place], [address] BUN/CRE 15.9 RATIO Normal 10-20 [facility] Comment on above: Performed By: #### L 501.9985, L501.9520, L500.4100, L500.4050, L100.0100, L506.1001 #### [facility] [address] [place], [address] Calcium [Mass/Vol] 9.5 mg/dL Normal 7.6-11.[address] [facility] Comment on above: Performed By: #### L 501.9985, L501.9520, L500.4100, L500.4050, L100.0100, L506.1001 #### [facility] [address] [place], [address] Chloride [Moles/Vol] 103 mmol/L Normal 98-108 [facility] Comment on above: Performed By: #### L 501.9985, L501.9520, L500.4100, L500.4050, L100.0100, L506.1001 #### [facility] [address] [place], [address] CO2 [Moles/Vol] 23.8 mmol/L Normal 21.0-32.0 [facility] Comment on above: Performed By: #### L 501.9985, L501.9520, L500.4100, L500.4050, L100.0100, L506.1001 #### [facility] [address] [place], [address] Creatinine [Mass/Vol] 1.27 mg/dL High 0.70-1.20 [facility] Comment on above: Performed By: #### L 501.9985, L501.9520, L500.4100, L500.4050, L100.0100, L506.1001 #### [facility] [address] [place], [address] GAP 13 Normal 5-15 [facility] Comment on above: Performed By: #### L 501.9985, L501.9520, L500.4100, L500.4050, L100.0100, L506.1001 #### [facility] [address] [place], [address] GFR/1.73 sq M.predicted among non-blacks MDRD (S/P/Bld) [Vol rate/Area] 45 mL/min/{1.73_m2} Low >60 [facility] Comment on above: Result Comment: mL/m in/1.73m2 CKD-EPI Creatinine Equation (2020) Performed By: #### L 501.9985, L501.9520, L500.4100, L500.4050, L100.0100, L506.1001 #### [facility] [address] [place], [address] Globulin (S) [Mass/Vol] 3.1 g/dL Normal 2.2-4.2 [facility] Comment on above: Performed By: #### L 501.9985, L501.9520, L500.4100, L500.4050, L100.0100, L506.1001 #### [facility] [address] [place], [address] Glucose [Mass/Vol] 148 mg/dL High 70-[address] [facility] Comment on above: Performed By: #### L 501.9985, L501.9520, L500.4100, L500.4050, L100.0100, L506.1001 #### [facility] [address] [place], [address] Potassium [Moles/Vol] 3.9 mmol/L Normal 3.3-5.1 [facility] Comment on above: Performed By: #### L 501.9985, L501.9520, L500.4100, L500.4050, L100.0100, L506.1001 #### [facility] [address] [place], [address] Sodium [Moles/Vol] 141 mmol/L Normal 133-[address] [facility] Comment on above: Performed By: #### L 501.9985, L501.9520, L500.4100, L500.4050, L100.0100, L506.1001 #### [facility] [address] [place], [place], [id number] (844) T PROT 7.1 g/dL Normal 5.9-8.4 [facility] Comment on above: Performed By: #### L 501.9985, L501.9520, L500.4100, L500.4050, L100.0100, L506.1001 #### [facility] [address] [place], [address] Urea nitrogen [Mass/Vol] 20 mg/dL High 4-19 [facility] Comment on above: Performed By: #### L 501.9985, L501.9520, L500.4100, L500.4050, L100.0100, L506.1001 #### [facility] [address] [place], [place], [id number] (651) Eosinophil percentageOrdered By: Marquis Singh on 09-11-2024 Eosinophils/100 WBC (Bld) 1.0 % 0-5 [facility] Erythrocyte distribution wid th ratioOrdered By: Marquis Singh 09-11-2024 Erythrocyte distribution width (RBC) [Ratio] 13.5 % 11.6-14.6 [facility] Erythrocyte distribution wid th standard deviationOrdered By: Marquis Singh 09-11-2024 Erythrocyte distribution width (RBC) [Ratio] 47.7 fl High 35.1-43.9 [facility] Glomerular filtration rate ( GFR) estimation/1.73 sq m using serum, plasma, or whole bOrdered By: Marquis Singh on 09-11-2024 GFR/1.73 sq M.predicted among non-blacks MDRD (S/P/Bld) [Vol rate/Area] 45 mL/min/{1.73_m2} Low >60 [facility] Comment on above: mL/min/1.73m2 CKD-EP I Creatinine Equation (2020) Hematocrit Auto (Bld) [Volum e fraction]Ordered By: Marquis Singh on 09-11-2024 Hematocrit (Bld) [Volume fraction] 40.7 % 37-47 [facility] Hemoglobin A1con 09-11-2024 HbA1c (Bld) [Mass fraction] 7.2 % High <=5.6 [facility] Comment on above: Result Comment: Norm al < 5.7 % Prediabetic 5.7 - 6.4 % Diabetic >or= 6.5 % Please note range changes. Performed By: #### L 501.9985, L501.9520, L500.4100, L500.4050, L100.0100, L506.1001 #### [facility] [address] [place], [address] Hemoglobin A1c percentageOrd ered By: Marquis Singh on 09-11-2024 HbA1c (Bld) [Mass fraction] 7.2 % High <5.7 [facility] Comment on above: Normal < 5.7 % Predi abetic 5.7 - 6.4 % Diabetic >or= 6.5 % Please note range changes. Hemoglobin measurementOrdere d By: Marquis Singh on 09-11-2024 Hemoglobin (Bld) [Mass/Vol] 13.6 g/dL 12.0-15.0 [facility] Immature granulocytes/100 WB C Auto (Bld)Ordered By: Marquis Singh on 09-11-2024 Immature granulocytes/100 WBC (Bld) 0.300 % 0.0-0.9 [facility] Comment on above: IG% - Immature Granu locytes (promyelocytes, myelocytes and metamyelocytes) > 1% indicates that a LEFT SHIFT is Present. LDL calc ser/plasOrdered By: Marquis Singh on 09-11-2024 Cholesterol in LDL [Mass/Vol] 96 mg/dL [facility] Comment on above: Apqwnsybkn=239-283 m g/dL & Higher Hsbk=230 mg/dL or greater Laboratory - Chemistry and C hemistry - challengeOrdered By: Marquis Singh on 09-11-2024 AST [Catalytic activity/Vol] 20 U/L <32 [facility] Lipid Profileon 09-11-2024 CHOL:HDL 3.43 Normal [facility] Comment on above: Performed By: #### L 501.9985, L501.9520, L500.4100, L500.4050, L100.0100, L506.1001 #### [facility] [address] [place], [address] Cholesterol [Mass/Vol] 181 mg/dL Normal <=200 [facility] Comment on above: Result Comment: Chol esterol level, Desirable <200 mg/dL Borderline high cholesterol 200-239 mg/dL High cholesterol >=240 mg/dL Recommendations of the NCEP Adult Treatment Panel for the following risk-cutoff thresholds for the [place] population. Performed By: #### L 501.9985, L501.9520, L500.4100, L500.4050, L100.0100, L506.1001 #### [facility] [address] [place], [address] Cholesterol in HDL [Mass/Vol] 53 mg/dL Normal [facility] Comment on above: Result Comment: Jami onal Cholesterol Education Program (NCEP) guidelines: <40 mg/dL: Low HDL-cholesterol (major risk factor for CHD) >= 60 mg/dL: High HDL-cholesterol (negative risk factor for CHD) HDL-cholesterol is affected by a number of factors, e.g. smoking, exercise, hormones, sex and age. Performed By: #### L 501.9985, L501.9520, L500.4100, L500.4050, L100.0100, L506.1001 #### [facility] [address] [place], [address] Cholesterol in LDL [Mass/Vol] 96 mg/dL Normal [facility] Comment on above: Result Comment: Bord uohxvw=709-711 mg/dL Higher Hqmj=316 mg/dL or greater Performed By: #### L 501.9985, L501.9520, L500.4100, L500.4050, L100.0100, L506.1001 #### [facility] [address] [place], [address] Cholesterol in VLDL [Mass/Vol] 32 mg/dL Normal 5-40 [facility] Comment on above: Performed By: #### L 501.9985, L501.9520, L500.4100, L500.4050, L100.0100, L506.1001 #### [facility] [address] [place], [address] Triglyceride [Mass/Vol] 161 mg/dL Normal [facility] Comment on above: Result Comment: The drugs N-Acetylcysteine and Metamizole may falsely depress this assay. Normal range: <150 mg/dL Borderline High: 150-199 mg/dL High: 200-499 mg/dL Very High: >500 mg/dL Performed By: #### L 501.9985, L501.9520, L500.4100, L500.4050, L100.0100, L506.1001 #### [facility] [address] [place], [address] MCV (mean corpuscular volume ) determinationOrdered By: Marquis Singh on 09-11-2024 MCV (RBC) [Entitic vol] 95.1 fL 81-99 [facility] Mean corpuscular hemoglobin (MCH) determinationOrdered By: Marquis Singh 09-11-2024 MCH (RBC) [Entitic mass] 31.8 pg 27.0-32.0 [facility] Mean corpuscular hemoglobin concentration (MCHC) determinationOrdered By: Marquis Singh on 09-11-2024 MCHC (RBC) [Mass/Vol] 33.4 g/dL 32-36 [facility] Mean platelet volume determi nationOrdered By: Marquis Singh on 09-11-2024 Platelet mean volume (Bld) [Entitic vol] 9.9 fL 6.2-12.0 [facility] Monocyte percentageOrdered B y: Marquis Singh on 09-11-2024 Monocytes/100 WBC (Bld) 9.5 % 0-10 [facility] Neutrophil percentageOrdered By: Marquis Singh on 09-11-2024 Neutrophils/100 WBC (Bld) 56.5 % 47-70 [facility] Nucleated red blood cell per centageOrdered By: Marquis Singh on 09-11-2024 Nucleated RBC/100 WBC (Bld) [Ratio] 0 % 0-5 [facility] Platelet countOrdered By: Erick Singh on 09-11-2024 Platelets (Bld) [#/Vol] 237 10*3/uL 150-450 [facility] Potassium measurement (mass/ volume)Ordered By: Marquis Singh on 09-11-2024 Potassium (Unsp spec) [Mass/Vol] 3.9 mmol/L 3.3-5.1 [facility] RBC Auto (Bld) [#/Vol]Ordere d By: Marquis Singh on 09-11-2024 RBC (Bld) [#/Vol] 4.28 10*6/uL 4.2-5.4 [facility] Screening total cholesterol/ high density lipoprotein (HDL) cholesterol ratioOrdered By: Marquis Singh on 09-11-2024 Cholesterol.total/Zee sterol in HDL [Mass ratio] 3.43 {ratio} [facility] Serum creatinine measurement (mass/volume)Ordered By: Marquis Singh on 09-11-2024 Creatinine [Mass/Vol] 1.27 mg/dL High 0.70-1.20 [facility] Serum globulin measurementOr dered By: Marquis Singh 09-11-2024 Globulin (S) [Mass/Vol] 3.1 g/dL 2.2-4.2 [facility] Serum glucose measurement (m ass/volume)Ordered By: Marquis Singh 09-11-2024 Glucose [Mass/Vol] 148 mg/dL High 70-[address] [facility] Serum or plasma alanine canseco otransferase (ALT) measurementOrdered By: Marquis Signh 09-11-2024 ALT [Catalytic activity/Vol] 15 U/L <35 [facility] Serum or plasma albumin nelida urement (mass/volume)Ordered By: Marquis Singh 09-11-2024 Albumin [Mass/Vol] 4.0 g/dL 3.4-4.[address] [facility] Serum or plasma albumin/glob ulin mass ratioOrdered By: Marquis Singh on 09-11-2024 Albumin/Globulin [Mass ratio] 1.3 {ratio} 0.9-2.4 [facility] Serum or plasma alkaline ann-marie sphatase measurementOrdered By: Marquis Singh on 09-11-2024 ALP [Catalytic activity/Vol] 105 U/L High 35-104 [facility] Serum or plasma calcium nelida urement (mass/volume)Ordered By: Marquis Roger 09-11-2024 Calcium [Mass/Vol] 9.5 mg/dL 7.6-11.[address] [facility] Serum or plasma cholesterol in HDL measurement (mass/volume)Ordered By: Marquis Johnsonok 09-11-2024 Cholesterol in HDL [Mass/Vol] 53 mg/dL >40 [facility] Comment on above: National Cholesterol Education Program (NCEP) guidelines:<40 mg/dL: Low HDL-cholesterol (major risk factor for CHD)>= 60 mg/dL: High HDL-cholesterol (negative risk factor for CHD)HDL-cholesterol is affected by a number of factors, e.g. smoking, exercise, hormones, sex and age. Serum or plasma cholesterol measurement (mass/volume)Ordered By: Marquis Singh 09-11-2024 Cholesterol [Mass/Vol] 181 mg/dL <201 [facility] Comment on above: Cholesterol level, D esirable <200 mg/dLBorderline high cholesterol 200-239 mg/dLHigh cholesterol >=240 mg/dLRecommendations of the NCEP Adult Treatment Panel for the following risk-cutoff thresholds for the [place] population. Serum or plasma urea nitroge n measurement (mass/volume)Ordered By: Marquis Singh on 09-11-2024 Urea nitrogen [Mass/Vol] 20 mg/dL High 4-19 [facility] Shoulder min 2 Viewson 09-11 Shoulder min 2 Views [facility] Imaging Services [address] [place], [place] [id number] (240) Shoulder min 2 Views MR#: [id number] Acct: [id number] Name: JEYSON DAVE Rep #: [id number] : 1955 F 68 From: Jeff Francisco MD PCP: Dr. Marquis Singh MD Status: REG CLI Study: Shoulder min 2 Views Date of Exam: 09/11/24 Exam# [id number] Ordering Dr: Marquis Singh MD EXAM: XR [...] IMPRESSION: Degenerative changes as above. Reading Location: [facility] CC: Dr. Marquis Singh MD [employer]: Signed Normal [facility] Sodium levelOrdered By: Marquis Singh on 09-11-2024 Sodium [Moles/Vol] 141 mmol/L 133-[address] [facility] TSH DL <= 0.005 mIU/L QnOrde red By: Marquis Singh on 09-11-2024 TSH Qn 2.250 uIU/mL 0.300-4.200 [facility] Thyroid Stim Hormone (TSH)on 09-11-2024 TSH 2.250 uIU/mL Normal 0.300-4.200 [facility] Comment on above: Performed By: #### L 501.9985, L501.9520, L500.4100, L500.4050, L100.0100, L506.1001 #### [facility] [address] [facility] [address] [place], [place], [id number] Total proteinOrdered By: Marquis Singh on 09-11-2024 Protein [Mass/Vol] 7.1 g/dL 5.9-8.[address] [facility] Triglycerides measurementOrd ered By: Marquis Singh on 09-11-2024 Triglyceride [Mass/Vol] 161 mg/dL <199 [facility] Comment on above: The drugs N-Acetylcy steine and Metamizole may falsely depress this assay. Normal range: <150 mg/dLBorderline High: 150-199 mg/dLHigh: 200-499 mg/dLVery High: >500 mg/dL Vitamin D,25 Hydroxyon 09-11 Vitamin D 25-OH 33.3 ng/mL Normal 30-100 [facility] Comment on above: Result Comment: Estelita min D Status Deficiency: <20 ng/mL (50nmol/L) Insufficiency: 20-30 ng/mL (50-75 nmol/L) Sufficiency: 30-100 ng/mL (75-250 nmol/L) Toxicity: >100 ng/mL (>250 nmol/L) Performed By: #### L 501.9985, L501.9520, L500.4100, L500.4050, L100.0100, L506.1001 #### [facility] [address] [place], [address] White blood cell (WBC) count Ordered By: Marquis Singh on 09-11-2024 WBC (Bld) [#/Vol] 7.3 10*3/uL 4.4-11.[address] [facility] CBC W/Diff, Automatedon -2 Absolute Lymph 2.07 X10 3/uL Normal 0.83-4.51 [facility] Comment on above: Performed By: #### L 500.4050, L501.9985, L100.0100, L500.4100, L506.1000, L501.9520 #### [facility] [address] [place], [address] Absolute Neut 3.6 X10 3/uL Normal 2.0-7.7 [facility] Comment on above: Performed By: #### L 500.4050, L501.9985, L100.0100, L500.4100, L506.1000, L501.9520 #### [facility] [address] [place], [address] Basophils/100 WBC (Bld) 0.6 % Normal 0-1 [facility] Comment on above: Performed By: #### L 500.4050, L501.9985, L100.0100, L500.4100, L506.1000, L501.9520 #### [facility] [address] [place], [address] Eosinophils/100 WBC (Bld) 1.1 % Normal 0-5 [facility] Comment on above: Performed By: #### L 500.4050, L501.9985, L100.0100, L500.4100, L506.1000, L501.9520 #### [facility] [address] [place], [address] Erythrocyte distribution width (RBC) [Ratio] 13.7 % Normal 11.6-14.6 [facility] Comment on above: Performed By: #### L 500.4050, L501.9985, L100.0100, L500.4100, L506.1000, L501.9520 #### [facility] [address] [place], [address] Hematocrit (Bld) [Volume fraction] 43.2 % Normal 37-47 [facility] Comment on above: Performed By: #### L 500.4050, L501.9985, L100.0100, L500.4100, L506.1000, L501.9520 #### [facility] [address] [place], [address] Hemoglobin (Bld) [Mass/Vol] 14.0 g/dL Normal 12.0-15.0 [facility] Comment on above: Performed By: #### L 500.4050, L501.9985, L100.0100, L500.4100, L506.1000, L501.9520 #### [facility] [address] [place], [address] IG% 0.300 Normal 0.0-0.9 [facility] Comment on above: Result Comment: IG% - Immature Granulocytes (promyelocytes, myelocytes and metamyelocytes) > 1% indicates that a LEFT SHIFT is Present. Performed By: #### L 500.4050, L501.9985, L100.0100, L500.4100, L506.1000, L501.9520 #### [facility] [address] [place], [address] Lymphocytes/100 WBC (Bld) 32.5 % Normal 19-41 [facility] Comment on above: Performed By: #### L 500.4050, L501.9985, L100.0100, L500.4100, L506.1000, L501.9520 #### [facility] [address] [place], [address] MCH (RBC) [Entitic mass] 31.2 pg Normal 27.0-32.0 [facility] Comment on above: Performed By: #### L 500.4050, L501.9985, L100.0100, L500.4100, L506.1000, L501.9520 #### [facility] [address] [place], [address] MCHC (RBC) [Mass/Vol] 32.4 g/dL Normal 32-36 [facility] Comment on above: Performed By: #### L 500.4050, L501.9985, L100.0100, L500.4100, L506.1000, L501.9520 #### [facility] [address] [place], [address] MCV (RBC) [Entitic vol] 96.2 fL Normal 81-99 [facility] Comment on above: Performed By: #### L 500.4050, L501.9985, L100.0100, L500.4100, L506.1000, L501.9520 #### [facility] [address] [place], [address] Monocytes/100 WBC (Bld) 9.7 % Normal 0-10 [facility] Comment on above: Performed By: #### L 500.4050, L501.9985, L100.0100, L500.4100, L506.1000, L501.9520 #### [facility] [address] [place] [place], [address] Neutrophils/100 WBC (Bld) 55.8 % Normal 47-70 [facility] Comment on above: Performed By: #### L 500.4050, L501.9985, L100.0100, L500.4100, L506.1000, L501.9520 #### [facility] [address] [place], [address] Nucleated RBC (Bld) [#/Vol] 0 10*3/uL Normal 0-5 [facility] Comment on above: Performed By: #### L 500.4050, L501.9985, L100.0100, L500.4100, L506.1000, L501.9520 #### [facility] [address] [place], [address] Platelet mean volume (Bld) [Entitic vol] 9.9 fL Normal 6.2-12.0 [facility] Comment on above: Performed By: #### L 500.4050, L501.9985, L100.0100, L500.4100, L506.1000, L501.9520 #### [facility] [address] [place], [address] Platelets (Bld) [#/Vol] 250 10*3/uL Normal 150-450 [facility] Comment on above: Performed By: #### L 500.4050, L501.9985, L100.0100, L500.4100, L506.1000, L501.9520 #### [facility] [address] [place], [address] RBC (Bld) [#/Vol] 4.49 10*6/uL Normal 4.2-5.4 [facility] Comment on above: Performed By: #### L 500.4050, L501.9985, L100.0100, L500.4100, L506.1000, L501.9520 #### [facility] [address] [place], [address] RDW SD 48.6 fl High 35.1-43.9 [facility] Comment on above: Performed By: #### L 500.4050, L501.9985, L100.0100, L500.4100, L506.1000, L501.9520 #### [facility] [address] [place], [address] WBC (Bld) [#/Vol] 6.4 10*3/uL Normal 4.4-11.[address] [facility] Comment on above: Performed By: #### L 500.4050, L501.9985, L100.0100, L500.4100, L506.1000, L501.9520 #### [facility] [address] [place], [address] [facility] Albumin [Mass/Vol] 3.5 g/dL Normal 3.2-5.[address] [facility] Comment on above: Performed By: #### L 500.4050, L501.9985, L100.0100, L500.4100, L506.1000, L501.9520 ####[facility] [address] [place], [address] Albumin/Globulin [Mass ratio] 0.9 {ratio} Normal 0.9-2.4 [facility] Comment on above: Performed By: #### L 500.4050, L501.9985, L100.0100, L500.4100, L506.1000, L501.9520 ####[facility] [address] [place], [address] ALK P 99 U/L Normal 45-117 [facility] Comment on above: Performed By: #### L 500.4050, L501.9985, L100.0100, L500.4100, L506.1000, L501.9520 ####[facility] [address] [place], [address] ALT [Catalytic activity/Vol] 23 U/L Normal 13-56 [facility] Comment on above: Performed By: #### L 500.4050, L501.9985, L100.0100, L500.4100, L506.1000, L501.9520 ####[facility] [address] [place], [address] AST [Catalytic activity/Vol] 17 U/L Normal 15-37 [facility] Comment on above: Performed By: #### L 500.4050, L501.9985, L100.0100, L500.4100, L506.1000, L501.9520 ####[facility] [address] [place], [address] Bilirubin [Mass/Vol] 0.50 mg/dL Normal 0.20-1.00 [facility] Comment on above: Result Comment: For patients on eltrombopag therapy, use of Dimension [place] TBIL is not recommended. Performed By: #### L 500.4050, L501.9985, L100.0100, L500.4100, L506.1000, L501.9520 ####[facility] [address] [place], [address] BUN/CRE 13.9 RATIO Normal 10-20 [facility] Comment on above: Performed By: #### L 500.4050, L501.9985, L100.0100, L500.4100, L506.1000, L501.9520 ####[facility] [address] [place], [address] CA,Total 9.1 mg/dL Normal 8.5-10.1 [facility] Comment on above: Performed By: #### L 500.4050, L501.9985, L100.0100, L500.4100, L506.1000, L501.9520 ####[facility] [address] [place], [address] Chloride [Moles/Vol] 106 mmol/L Normal 98-107 [facility] Comment on above: Performed By: #### L 500.4050, L501.9985, L100.0100, L500.4100, L506.1000, L501.9520 ####[facility] [address] [place], [address] CO2 [Moles/Vol] 29.0 mmol/L Normal 21.0-32.0 [facility] Comment on above: Performed By: #### L 500.4050, L501.9985, L100.0100, L500.4100, L506.1000, L501.9520 ####[facility] [address] [place], [address] Creatinine [Mass/Vol] 1.22 mg/dL High 0.55-1.02 [facility] Comment on above: Result Comment: The validity of the calculated GFR GFRAA in patients over 70 years has not been determined. Clinical correlation is essential. Performed By: #### L 500.4050, L501.9985, L100.0100, L500.4100, L506.1000, L501.9520 ####[facility] [address] [place], [address] EST GFR - AA 56 mL/min Low >60 [facility] Comment on above: Result Comment: Afri can Indian GFR Calc Performed By: #### L 500.4050, L501.9985, L100.0100, L500.4100, L506.1000, L501.9520 ####[facility] [address] [place], [address] GAP 5 Normal 5-15 [facility] Comment on above: Performed By: #### L 500.4050, L501.9985, L100.0100, L500.4100, L506.1000, L501.9520 ####[facility] [address] [place], [address] GFR/1.73 sq M.predicted among non-blacks MDRD (S/P/Bld) [Vol rate/Area] 46 mL/min/{1.73_m2} Low >60 [facility] Comment on above: Result Comment: Non- GFR Calc Performed By: #### L 500.4050, L501.9985, L100.0100, L500.4100, L506.1000, L501.9520 ####[facility] [address], [address] Globulin (S) [Mass/Vol] 4.0 g/dL Normal 2.2-4.2 [facility] Comment on above: Performed By: #### L 500.4050, L501.9985, L100.0100, L500.4100, L506.1000, L501.9520 ####[facility] [address] [place], [address] Glucose [Mass/Vol] 150 mg/dL High 74-[address] [facility] Comment on above: Result Comment: Fast ing Glucose result greater than or equal to 126 mg/dL suggests DIABETES MELLITUS per A.D.A. criteria. Performed By: #### L 500.4050, L501.9985, L100.0100, L500.4100, L506.1000, L501.9520 ####[facility] [address] [place], [address] Potassium [Moles/Vol] 3.9 mmol/L Normal 3.5-5.1 [facility] Comment on above: Performed By: #### L 500.4050, L501.9985, L100.0100, L500.4100, L506.1000, L501.9520 ####[facility] [address] [place], [address] Sodium [Moles/Vol] 140 mmol/L Normal 136-[address] [facility] Comment on above: Performed By: #### L 500.4050, L501.9985, L100.0100, L500.4100, L506.1000, L501.9520 ####[facility] [address] [place], [address] T PROT 7.5 g/dL Normal 6.4-8.2 [facility] Comment on above: Performed By: #### L 500.4050, L501.9985, L100.0100, L500.4100, L506.1000, L501.9520 ####[facility] [address] [place], [address] Urea nitrogen [Mass/Vol] 17 mg/dL Normal 7-18 [facility] Comment on above: Performed By: #### L 500.4050, L501.9985, L100.0100, L500.4100, L506.1000, L501.9520 ####[facility] [address] [place], [address] Hemoglobin A1con 03-13-2024 HbA1c (Bld) [Mass fraction] 6.7 % High 3.8-5.6 [facility] Comment on above: Result Comment: Norm al < 5.7 % Prediabetic 5.7 - 6.4 % Diabetic >or= 6.5 % Please note range changes. Performed By: #### L 500.4050, L501.9985, L100.0100, L500.4100, L506.1000, L501.9520 #### [facility] [address] [place], [address] Lipid Profileon 03-13-2024 Cholesterol [Mass/Vol] 184 mg/dL Normal 200 [facility] Comment on above: Result Comment: <200 mg/dL Desirable 200-240 mg/dL Borderline >240 mg/dL High Risk Performed By: #### L 500.4050, L501.9985, L100.0100, L500.4100, L506.1000, L501.9520 ####[facility] [address] [place], [address] Cholesterol in HDL [Mass/Vol] 64 mg/dL Normal [facility] Comment on above: Result Comment: The drugs N-Acetylcysteine and Metamizole may falsely depress this assay. Reference Range HDL <40 mg/dL Low HDL Cholesterol HDL >or= 60 mg/dL High HDL Cholesterol Performed By: #### L 500.4050, L501.9985, L100.0100, L500.4100, L506.1000, L501.9520 ####[facility] [address] [place], [address] Cholesterol in LDL [Mass/Vol] 89 mg/dL Normal 0-130 [facility] Comment on above: Performed By: #### L 500.4050, L501.9985, L100.0100, L500.4100, L506.1000, L501.9520 ####[facility] [address] [place], [address] Cholesterol in VLDL [Mass/Vol] 31 mg/dL Normal 5-40 [facility] Comment on above: Performed By: #### L 500.4050, L501.9985, L100.0100, L500.4100, L506.1000, L501.9520 ####[facility] [address] [place], [address] Triglyceride [Mass/Vol] 154 mg/dL Normal [facility] Comment on above: Result Comment: The drugs N-Acetylcysteine and Metamizole may falsely depress this assay. Serum Triglycerides Reference Interval Normal <150 mg/dL Borderline high 150 - 199 mg/dL High 200 - 499 mg/dL Very High > or = 500 mg/dL Performed By: #### L 500.4050, L501.9985, L100.0100, L500.4100, L506.1000, L501.9520 ####[facility] [address] [place], [address] Thyroid Stim Hormone (TSH)on 03-13-2024 TSH 2.490 uIU/mL Normal 0.358-3.740 [facility] Comment on above: Performed By: #### L 500.4050, L501.9985, L100.0100, L500.4100, L506.1000, L501.9520 ####[facility] [address] [place], [address] Vitamin D,25 Hydroxyon 03-13 Vitamin D 25-OH 37.2 ng/mL Normal [facility] Comment on above: Result Comment: Estelita min D 25(OH) Status Range Deficiency <20 ng/mL (50nmol/L) Insufficiency 20 - 30 ng/mL (50 - 75 nmol/L) Sufficiency 30 - 100 ng/mL (75 - 250 nmol/L) Toxicity >100 ng/mL (>250 nmol/L) Performed By: #### L 500.4050, L501.9985, L100.0100, L500.4100, L506.1000, L501.9520 ####[facility] [address] [place], [place], [address] Absolute lymphocyte countOrd ered By: Marquis Singh on 03-08-2023 Lymphocytes Auto (Unsp spec) [#/Vol] 1.77 10*3/uL 0.83-4.51 [facility] Automated lymphocyte count a s percentage of total leukocytesOrdered By: Marquis Singh on 03-08-2023 Lymphocytes/100 WBC Auto (Unsp spec) 26.3 % 19-41 [facility] Basophil percentageOrdered B y: Marquis Singh on 03-08-2023 Basophils/100 WBC (Bld) 0.6 % 0-1 [facility] Bilirubin [Mass/Vol] 0.80 mg/dL 0.20-1.00 [facility] Comment on above: For patients on eltr ombopag therapy, use of Dimension [place] TBIL is not recommended. Chloride [Moles/Vol] 107 mmol/L 98-107 [facility] Cholesterol [Mass/Vol] 187 mg/dL <200 [facility] Comment on above: <200 mg/dL Desirable 200-240 mg/dL Borderline >240 mg/dL High Risk Eosinophils/100 WBC (Bld) 1.2 % 0-5 [facility] Glucose [Mass/Vol] 144 mg/dL 74-[address] [facility] Comment on above: Fasting Glucose resu lt greater than or equal to 126 mg/dL suggests DIABETES MELLITUS per A.D.A. criteria. Hemoglobin (Bld) [Mass/Vol] 13.7 g/dL 12.0-15.0 [facility] Monocytes/100 WBC (Bld) 8.5 % 0-10 [facility] Neutrophils (Bld) [#/Vol] 4.2 10*3/uL 2.0-7.7 [facility] Neutrophils/100 WBC (Bld) 63.1 % 47-70 [facility] Potassium [Moles/Vol] 3.4 mmol/L 3.5-5.1 [facility] Protein [Mass/Vol] 7.4 g/dL 6.4-8.[address] [facility] Sodium [Moles/Vol] 140 mmol/L 136-[address] [facility] Triglyceride [Mass/Vol] 126 mg/dL <199 [facility] Comment on above: The drugs N-Acetylcy steine and Metamizole may falsely depress this assay.Serum Triglycerides Reference Interval Normal <150 mg/dL Borderline high 150 - 199 mg/dL High 200 - 499 mg/dL Very High > or = 500 mg/dL WBC (Bld) [#/Vol] 6.7 10*3/uL 4.4-11.[address] [facility] Determination of erythrocyte mean corpuscular volume (MCV)Ordered By: Mraquis Singh on 03-08-2023 MCV (RBC) [Entitic vol] 96.9 fL 81-99 [facility] Erythrocyte distribution wid th ratioOrdered By: Marquis Singh on 03-08-2023 Erythrocyte distribution width (RBC) [Ratio] 13.1 % 11.6-14.6 [facility] Erythrocyte distribution wid th standard deviationOrdered By: Marquis Singh on 03-08-2023 Erythrocyte distribution width (RBC) [Entitic vol] 46.7 fL 35.1-43.9 [facility] Hematocrit Auto (Bld) [Volum e fraction]Ordered By: Marquis Singh on 03-08-2023 Hematocrit (Bld) [Volume fraction] 43.4 % 37-47 [facility] High density lipoprotein (HD L) measurementOrdered By: Marquis Singh on 03-08-2023 Cholesterol in HDL (Body fld) [Mass/Vol] 62 mg/dL >40 [facility] Comment on above: The drugs N-Acetylcy steine and Metamizole may falsely depress this assay. Reference Range HDL <40 mg/dL Low HDL Cholesterol HDL >or= 60 mg/dL High HDL Cholesterol Immature granulocytes/100 WB C Auto (Bld)Ordered By: Marquis Singh 03-08-2023 Immature granulocytes/100 WBC (Bld) 0.300 % 0.0-0.9 [facility] Comment on above: IG% - Immature Granu locytes (promyelocytes, myelocytes and metamyelocytes) > 1% indicates that a LEFT SHIFT is Present. Laboratory - Chemistry and C hemistry - challengeOrdered By: Marquis Singh 03-08-2023 Albumin/Globulin [Mass ratio] 0.9 {ratio} 0.9-2.4 [facility] ALP [Catalytic activity/Vol] 93 U/L 45-117 [facility] ALT [Catalytic activity/Vol] 22 U/L 13-56 [facility] CO2 [Moles/Vol] 29.0 mmol/L 21.0-32.0 [facility] Globulin (S) [Mass/Vol] 3.8 g/dL 2.2-4.2 [facility] Urea nitrogen/Creatinine [Mass ratio] 23.0 mg/mg 10-20 [facility] Laboratory - Hematology and Cell countsOrdered By: Marquis Singh 03-08-2023 MCH (RBC) [Entitic mass] 30.6 pg 27.0-32.0 [facility] MCHC (RBC) [Mass/Vol] 31.6 g/dL 32-36 [facility] Nucleated RBC/100 WBC (Bld) [Ratio] 0 % 0-5 [facility] Platelets (Bld) [#/Vol] 256 10*3/uL 150-450 [facility] Low density lipoprotein (LDL ) cholesterol measurementOrdered By: Marquis Singh on 03-08-2023 Cholesterol in LDL (Body fld) [Moles/Vol] 100 mg/dL 0-130 [facility] No Panel InformationOrdered By: Marquis Singh on 03-08-2023 Estimated GFR (MDRD) Amer 61 mL/min >60 [facility] Comment on above: GFR Calc Estimated GFR (MDRD) Non-Af Amer 51 mL/min >60 [facility] Comment on above: Non- GFR Calc Vitamin D 25-Hydroxy 49.8 ng/mL [facility] Comment on above: Vitamin D 25(OH) Sta tus Range Deficiency <20 ng/mL (50nmol/L) Insufficiency 20 - 30 ng/mL (50 - 75 nmol/L) Sufficiency 30 - 100 ng/mL (75 - 250 nmol/L) Toxicity >100 ng/mL (>250 nmol/L) Platelet mean volume Bhanu-Ec ker (Bld) [Entitic vol]Ordered By: Marquis Singh on 03-08-2023 Platelet mean volume (Bld) [Entitic vol] 10.0 fL 6.2-12.0 [facility] RBC Auto (Bld) [#/Vol]Ordere d By: Marquis Singh on 03-08-2023 RBC (Bld) [#/Vol] 4.48 10*6/uL 4.2-5.4 [facility] Serum or plasma calcium nelida urement (mass/volume)Ordered By: Marquis Singh on 03-08-2023 Calcium [Mass/Vol] 9.6 mg/dL 8.5-10.[address] [facility] Serum or plasma creatinine m easurement (mass/volume)Ordered By: Marquis Singh on 03-08-2023 Creatinine [Mass/Vol] 1.13 mg/dL 0.55-1.02 [facility] Comment on above: The validity of the calculated GFR & GFRAA in patients over 70 years has not been determined. Clinical correlation is essential. Serum or plasma thyroid stim ulating hormone (TSH) measurement (units/volume)Ordered By: Marquis Singh on 03-08-2023 TSH Qn 2.06 uIU/mL 0.358-3.74 [facility] Serum or plasma urea nitroge n measurement (mass/volume)Ordered By: Marquis Singh on 03-08-2023 Urea nitrogen [Mass/Vol] 26 mg/dL 7-18 [facility] Thin prep Papanicolaou smear with manual screeningOrdered By: Marquis Singh on 03-08-2023 Thin prep Papanicolaou smear with manual screening 3.6 g/dL 3.2-5.0 [facility] Thin prep Papanicolaou smear with manual screening 14 U/L 15-37 [facility] Thin prep Papanicolaou smear with manual screening 4 5-15 [facility] Very low density lipoprotein (VLDL) cholesterol measurementOrdered By: Marquis Singh on 03-08-2023 Cholesterol in VLDL Calc [Moles/Vol] 25 mg/dL 5-40 [facility] Whole blood hemoglobin A1c/t otal hemoglobin ratio (mass fraction)Ordered By: Marquis Singh on 03-08-2023 HbA1c (Bld) [Mass fraction] 6.7 % 3.8-5.6 [facility] Comment on above: Normal < 5.7 % Predi abetic 5.7 - 6.4 % Diabetic >or= 6.5 % Please note range changes. Absolute lymphocyte countOrd ered By: Pau Jack on 09-04-2022 Lymphocytes Auto (Unsp spec) [#/Vol] 1.70 10*3/uL 0.83-4.51 [facility] Basophil percentageOrdered B y: Pau Jack on 09-04-2022 Basophil percentage 3.9 mg/dL 2.5-4.9 [facility] Basophils/100 WBC (Bld) 0.6 % 0-1 [facility] Bilirubin [Mass/Vol] 0.40 mg/dL 0.20-1.00 [facility] Comment on above: For patients on eltr ombopag therapy, use of Dimension [place] TBIL is not recommended. Chloride [Moles/Vol] 106 mmol/L 98-107 [facility] Cholesterol [Mass/Vol] 159 mg/dL <200 [facility] Comment on above: <200 mg/dL Desirable 200-240 mg/dL Borderline >240 mg/dL High Risk Eosinophils/100 WBC (Bld) 1.3 % 0-5 [facility] Glucose [Mass/Vol] 127 mg/dL 74-[address] [facility] Comment on above: Fasting Glucose resu lt greater than or equal to 126 mg/dL suggests DIABETES MELLITUS per A.D.A. criteria. Neutrophils (Bld) [#/Vol] 3.0 10*3/uL 2.0-7.7 [facility] Neutrophils/100 WBC (Bld) 56.5 % 47-70 [facility] Potassium [Moles/Vol] 4.2 mmol/L 3.5-5.1 [facility] Protein [Mass/Vol] 7.1 g/dL 6.4-8.[address] [facility] Sodium [Moles/Vol] 139 mmol/L 136-[address] [facility] Triglyceride [Mass/Vol] 78 mg/dL <199 [facility] Comment on above: The drugs N-Acetylcy steine and Metamizole may falsely depress this assay.Serum Triglycerides Reference Interval Normal <150 mg/dL Borderline high 150 - 199 mg/dL High 200 - 499 mg/dL Very High > or = 500 mg/dL WBC (Bld) [#/Vol] 5.4 10*3/uL 4.4-11.[address] [facility] Blood erythrocytes count (nu mber/volume)Ordered By: Pau Jack on 09-04-2022 RBC (Bld) [#/Vol] 4.08 10*6/uL 4.2-5.4 [facility] Blood hemoglobin measurement (mass/volume)Ordered By: Pau Jack on 09-04-2022 Hemoglobin (Bld) [Mass/Vol] 12.5 g/dL 12.0-15.0 [facility] Blood lymphocytes/100 leukoc ytesOrdered By: Pau Jack on 09-04-2022 Lymphocytes/100 WBC (Bld) 31.7 % 19-41 [facility] Blood monocytes/100 leukocyt esOrdered By: Pau Jack on 09-04-2022 Monocytes/100 WBC (Bld) 9.5 % 0-10 [facility] Blood platelet mean volumeOr dered By: Pau Jack on 09-04-2022 Platelet mean volume (Bld) [Entitic vol] 10.1 fL 6.2-12.0 [facility] Determination of erythrocyte mean corpuscular volume (MCV)Ordered By: Pau Jack on 09-04-2022 MCV (RBC) [Entitic vol] 99.5 fL 81-99 [facility] Hematocrit Auto (Bld) [Volum e fraction]Ordered By: Pau Jack on 09-04-2022 Hematocrit (Bld) [Volume fraction] 40.6 % 37-47 [facility] - Chemistry and C hemistry - challengeOrdered By: Pau Jack on 09-04-2022 ALP [Catalytic activity/Vol] 96 U/L 45-117 [facility] ALT [Catalytic activity/Vol] 23 U/L 13-56 [facility] CO2 [Moles/Vol] 29.0 mmol/L 21.0-32.0 [facility] Globulin (S) [Mass/Vol] 4.0 g/dL 2.2-4.2 [facility] Urea nitrogen/Creatinine [Mass ratio] 17.9 mg/mg 10-20 [facility] - Hematology and Cell countsOrdered By: Pau Jack on 09-04-2022 Erythrocyte distribution width (RBC) [Entitic vol] 52.7 fL 35.1-43.9 [facility] Erythrocyte distribution width (RBC) [Ratio] 14.2 % 11.6-14.6 [facility] Immature granulocytes/100 WBC (Bld) 0.400 % 0.0-0.9 [facility] Comment on above: IG% - Immature Granu locytes (promyelocytes, myelocytes and metamyelocytes) > 1% indicates that a LEFT SHIFT is Present. MCH (RBC) [Entitic mass] 30.6 pg 27.0-32.0 [facility] Nucleated RBC/100 WBC (Bld) [Ratio] 0 % 0-5 [facility] MCHC Auto (RBC) [Mass/Vol]Or dered By: Pau Jack on 09-04-2022 MCHC (RBC) [Mass/Vol] 30.8 g/dL 32-36 [facility] No Panel InformationOrdered By: Pau Jack on 09-04-2022 Estimated GFR (MDRD) Amer 59 mL/min >60 [facility] Comment on above: GFR Calc Estimated GFR (MDRD) Non-Af Amer 49 mL/min >60 [facility] Comment on above: Non- GFR Calc Thyroid Stimulating Hormone (TSH) 2.48 uIU/mL 0.358-3.74 [facility] Urine Microalbumin/Creatinine Ratio 10.0 mg/g CRE <30 [facility] Vitamin D 25-Hydroxy 52.6 ng/mL [facility] Comment on above: Vitamin D 25(OH) Sta tus Range Deficiency <20 ng/mL (50nmol/L) Insufficiency 20 - 30 ng/mL (50 - 75 nmol/L) Sufficiency 30 - 100 ng/mL (75 - 250 nmol/L) Toxicity >100 ng/mL (>250 nmol/L) Platelets bldOrdered By: Beck Jakc on 09-04-2022 Platelets (Bld) [#/Vol] 251 10*3/uL 150-450 [facility] Serum or plasma albumin nelida urement (mass/volume)Ordered By: Pau Jack on 09-04-2022 Albumin [Mass/Vol] 3.1 g/dL 3.2-5.[address] [facility] Serum or plasma albumin/glob ulin mass ratioOrdered By: Pau Jack on 09-04-2022 Albumin/Globulin [Mass ratio] 0.8 {ratio} 0.9-2.4 [facility] Serum or plasma calcium nelida urement (mass/volume)Ordered By: Pau Jack on 09-04-2022 Calcium [Mass/Vol] 8.8 mg/dL 8.5-10.[address] [facility] Serum or plasma cholesterol in HDL measurement (mass/volume)Ordered By: Pau Jack on 09-04-2022 Cholesterol in HDL [Mass/Vol] 57 mg/dL >40 [facility] Comment on above: The drugs N-Acetylcy steine and Metamizole may falsely depress this assay. Reference Range HDL <40 mg/dL Low HDL Cholesterol HDL >or= 60 mg/dL High HDL Cholesterol Serum or plasma cholesterol in VLDL measurement (mass/volume)Ordered By: Pau Jack on 09-04-2022 Cholesterol in VLDL [Mass/Vol] 16 mg/dL 5-40 [facility] Serum or plasma creatinine m easurement (mass/volume)Ordered By: Pau Jack on 09-04-2022 Creatinine [Mass/Vol] 1.17 mg/dL 0.55-1.02 [facility] Comment on above: The validity of the calculated GFR & GFRAA in patients over 70 years has not been determined. Clinical correlation is essential. Serum or plasma low density lipoprotein (LDL) cholesterol measurement (mass/volume)Ordered By: Pau Jack on 09-04-2022 Cholesterol in LDL [Mass/Vol] 86 mg/dL 0-130 [facility] Serum or plasma urea nitroge n measurement (mass/volume)Ordered By: Pau Jack on 09-04-2022 Urea nitrogen [Mass/Vol] 21 mg/dL 7-18 [facility] Thin prep Papanicolaou smear with manual screeningOrdered By: Pau Jack on 09-04-2022 Thin prep Papanicolaou smear with manual screening 14 U/L 15-37 [facility] Thin prep Papanicolaou smear with manual screening 4 5-15 [facility] Thin prep Papanicolaou smear with manual screening 11.2 mg/L NO RANGE EST. [facility] Urine creatinine measurement (mass/volume)Ordered By: Pau Jack on 09-04-2022 Creatinine (U) [Mass/Vol] 110.00 mg/dL NO RANGE EST. [facility] Whole blood hemoglobin A1c/t otal hemoglobin ratio (mass fraction)Ordered By: Pau aJck on 09-04-2022 HbA1c (Bld) [Mass fraction] 6.8 % 3.8-5.6 [facility] Comment on above: Normal < 5.7 % Predi abetic 5.7 - 6.4 % Diabetic >or= 6.5 % Please note range changes. Absolute lymphocyte countOrd ered By: Dr. Singh on 03-08-2022 Lymphocytes Auto (Unsp spec) [#/Vol] 1.80 10*3/uL 0.83-4.51 [facility] Basophil percentageOrdered B y: Dr. Singh on 03-08-2022 Basophils/100 WBC (Bld) 0.6 % 0-1 [facility] Bilirubin [Mass/Vol] 0.50 mg/dL 0.20-1.00 [facility] Comment on above: For patients on eltr ombopag therapy, use of Dimension [place] TBIL is not recommended. Chloride [Moles/Vol] 104 mmol/L 98-107 [facility] Eosinophils/100 WBC (Bld) 1.5 % 0-5 [facility] Glucose [Mass/Vol] 182 mg/dL 74-[address] [facility] Comment on above: Fasting Glucose resu lt greater than or equal to 126 mg/dL suggests DIABETES MELLITUS per A.D.A. criteria. Neutrophils (Bld) [#/Vol] 2.3 10*3/uL 2.0-7.7 [facility] Neutrophils/100 WBC (Bld) 49.5 % 47-70 [facility] Potassium [Moles/Vol] 4.0 mmol/L 3.5-5.1 [facility] Protein [Mass/Vol] 7.0 g/dL 6.4-8.[address] [facility] Sodium [Moles/Vol] 141 mmol/L 136-[address] [facility] WBC (Bld) [#/Vol] 4.7 10*3/uL 4.4-11.[address] [facility] Blood erythrocytes count (nu mber/volume)Ordered By: Dr. Singh on 03-08-2022 RBC (Bld) [#/Vol] 3.94 10*6/uL 4.2-5.4 [facility] Blood hemoglobin measurement (mass/volume)Ordered By: Dr. Singh on 03-08-2022 Hemoglobin (Bld) [Mass/Vol] 12.5 g/dL 12.0-15.0 [facility] Blood lymphocytes/100 leukoc ytesOrdered By: Dr. Singh on 03-08-2022 Lymphocytes/100 WBC (Bld) 38.1 % 19-41 [facility] Blood monocytes/100 leukocyt esOrdered By: Dr. Singh on 03-08-2022 Monocytes/100 WBC (Bld) 9.9 % 0-10 [facility] Blood platelet mean volumeOr dered By: Dr. Singh on 03-08-2022 Platelet mean volume (Bld) [Entitic vol] 10.1 fL 6.2-12.0 [facility] Determination of erythrocyte mean corpuscular volume (MCV)Ordered By: Dr. Singh on 03-08-2022 MCV (RBC) [Entitic vol] 97.0 fL 81-99 [facility] Hematocrit Auto (Bld) [Volum e fraction]Ordered By: Dr. Singh on 03-08-2022 Hematocrit (Bld) [Volume fraction] 38.2 % 37-47 [facility] Laboratory - Chemistry and C hemistry - challengeOrdered By: Dr. Singh on 03-08-2022 ALP [Catalytic activity/Vol] 84 U/L 45-117 [facility] ALT [Catalytic activity/Vol] 23 U/L 13-56 [facility] CO2 [Moles/Vol] 30.0 mmol/L 21.0-32.0 [facility] Globulin (S) [Mass/Vol] 3.7 g/dL 2.2-4.2 [facility] Urea nitrogen/Creatinine [Mass ratio] 16.4 mg/mg 10-20 [facility] Laboratory - Hematology and Cell countsOrdered By: Dr. Singh on 03-08-2022 Erythrocyte distribution width (RBC) [Entitic vol] 49.7 fL 35.1-43.9 [facility] Erythrocyte distribution width (RBC) [Ratio] 13.8 % 11.6-14.6 [facility] Immature granulocytes/100 WBC (Bld) 0.400 % 0.0-0.9 [facility] Comment on above: IG% - Immature Granu locytes (promyelocytes, myelocytes and metamyelocytes) > 1% indicates that a LEFT SHIFT is Present. MCH (RBC) [Entitic mass] 31.7 pg 27.0-32.0 [facility] Nucleated RBC/100 WBC (Bld) [Ratio] 0 % 0-5 [facility] MCHC Auto (RBC) [Mass/Vol]Or dered By: Dr. Singh on 03-08-2022 MCHC (RBC) [Mass/Vol] 32.7 g/dL 32-36 [facility] No Panel InformationOrdered By: Dr. Singh on 03-08-2022 Estimated GFR (MDRD) Amer 48 mL/min >60 [facility] Comment on above: GFR Calc Estimated GFR (MDRD) Non-Af Amer 40 mL/min >60 [facility] Comment on above: Non- GFR Calc Thyroid Stimulating Hormone (TSH) 2.13 uIU/mL 0.358-3.74 [facility] Vitamin D 25-Hydroxy 41.6 ng/mL [facility] Comment on above: Vitamin D 25(OH) Sta tus Range Deficiency <20 ng/mL (50nmol/L) Insufficiency 20 - 30 ng/mL (50 - 75 nmol/L) Sufficiency 30 - 100 ng/mL (75 - 250 nmol/L) Toxicity >100 ng/mL (>250 nmol/L) Platelets bldOrdered By: Dr. Singh on 03-08-2022 Platelets (Bld) [#/Vol] 241 10*3/uL 150-450 [facility] Serum or plasma albumin nelida urement (mass/volume)Ordered By: Dr. Singh on 03-08-2022 Albumin [Mass/Vol] 3.3 g/dL 3.2-5.[address] [facility] Serum or plasma albumin/glob ulin mass ratioOrdered By: Dr. Singh on 03-08-2022 Albumin/Globulin [Mass ratio] 0.9 {ratio} 0.9-2.4 [facility] Serum or plasma calcium nelida urement (mass/volume)Ordered By: Dr. Singh on 03-08-2022 Calcium [Mass/Vol] 9.1 mg/dL 8.5-10.[address] [facility] Serum or plasma creatinine m easurement (mass/volume)Ordered By: Dr. Singh on 03-08-2022 Creatinine [Mass/Vol] 1.40 mg/dL 0.55-1.02 [facility] Comment on above: The validity of the calculated GFR & GFRAA in patients over 70 years has not been determined. Clinical correlation is essential. Serum or plasma urea nitroge n measurement (mass/volume)Ordered By: Dr. Singh on 03-08-2022 Urea nitrogen [Mass/Vol] 23 mg/dL -18 [facility] Thin prep Papanicolaou smear with manual screeningOrdered By: Dr. Singh on 03-08-2022 Thin prep Papanicolaou smear with manual screening 13 U/L 15-37 [facility] Thin prep Papanicolaou smear with manual screening 7 5-15 [facility] Basophil percentageOrdered B y: Dr. Jack on 12-30-2021 Basophil percentage 3.7 mg/dL 2.5-4.9 [facility] Chloride [Moles/Vol] 105 mmol/L 98-107 [facility] Glucose [Mass/Vol] 118 mg/dL 74-[address] [facility] Comment on above: Fasting Glucose resu lt from 100 to 125 mg/dL suggests IMPAIRED HOMEOSTASIS per A.D.A. criteria. Potassium [Moles/Vol] 3.6 mmol/L 3.5-5.1 [facility] Sodium [Moles/Vol] 138 mmol/L 136-[address] [facility] Laboratory - Chemistry and C hemistry - challengeOrdered By: Dr. Jack on 12-30-2021 CO2 [Moles/Vol] 26.0 mmol/L 21.0-32.0 [facility] Urea nitrogen/Creatinine [Mass ratio] 21.3 mg/mg 10-20 [facility] No Panel InformationOrdered By: Dr. Jack on 12-30-2021 Estimated GFR (MDRD) Amer 54 mL/min >60 [facility] Comment on above: GFR Calc Estimated GFR (MDRD) Non-Af Amer 45 mL/min >60 [facility] Comment on above: Non- GFR Calc Serum or plasma albumin nelida urement (mass/volume)Ordered By: Dr. Jack on 12-30-2021 Albumin [Mass/Vol] 3.5 g/dL 3.2-5.[address] [facility] Serum or plasma calcium nelida urement (mass/volume)Ordered By: Dr. Jack on 12-30-2021 Calcium [Mass/Vol] 9.6 mg/dL 8.5-10.[address] [facility] Serum or plasma creatinine m easurement (mass/volume)Ordered By: Dr. Jack on 12-30-2021 Creatinine [Mass/Vol] 1.27 mg/dL 0.55-1.02 [facility] Comment on above: The validity of the calculated GFR & GFRAA in patients over 70 years has not been determined. Clinical correlation is essential. Serum or plasma urea nitroge n measurement (mass/volume)Ordered By: Dr. Jack on 12-30-2021 Urea nitrogen [Mass/Vol] 27 mg/dL 7-18 [facility] No Panel InformationOrdered By: Dr. Jack on 11-24-2021 Urine Microalbumin/Creatinine Ratio 13.6 mg/g CRE <30 [facility] Thin prep Papanicolaou smear with manual screeningOrdered By: Dr. Jack on 11-24-2021 Thin prep Papanicolaou smear with manual screening 39.2 mg/L NO RANGE EST. [facility] Urine creatinine measurement (mass/volume)Ordered By: Dr. Jack on 11-24-2021 Creatinine (U) [Mass/Vol] 289.00 mg/dL NO RANGE EST. [facility] Absolute lymphocyte counton 08-30-2021 Lymphocytes Auto (Unsp spec) [#/Vol] 1.89 10*3/uL 0.83-4.51 [facility] Work Phone: Basophil percentageon 2021 Basophils/100 WBC (Bld) 0.4 % 0-1 [facility] Work Phone: Bilirubin [Mass/Vol] 0.40 mg/dL 0.20-1.00 [facility] Work Phone: Comment on above: For patients on eltr ombopag therapy, use of Dimension [place] TBIL is not recommended. Chloride [Moles/Vol] 106 mmol/L 98-107 [facility] Work Phone: Eosinophils/100 WBC (Bld) 1.3 % 0-5 [facility] Work Phone: Glucose [Mass/Vol] 142 mg/dL 74-[address] [facility] Work Phone: Comment on above: Fasting Glucose resu lt greater than or equal to 126 mg/dL suggests DIABETES MELLITUS per A.D.A. criteria. Neutrophils (Bld) [#/Vol] 2.1 10*3/uL 2.0-7.7 [facility] Work Phone: Neutrophils/100 WBC (Bld) 46.1 % 47-70 [facility] Work Phone: Potassium [Moles/Vol] 3.9 mmol/L 3.5-5.1 [facility] Work Phone: Protein [Mass/Vol] 6.9 g/dL 6.4-8.2 [facility] Work Phone: Sodium [Moles/Vol] 141 mmol/L 136-145 [facility] Work Phone: WBC (Bld) [#/Vol] 4.6 10*3/uL 4.4-11.0 [facility] Work Phone: Blood erythrocytes count (nu mber/volume)on 08-30-2021 RBC (Bld) [#/Vol] 3.71 10*6/uL 4.2-5.4 [facility] Work Phone: Blood hemoglobin measurement (mass/volume)on 08-30-2021 Hemoglobin (Bld) [Mass/Vol] 11.7 g/dL 12.0-15.0 [facility] Work Phone: Blood lymphocytes/100 leukoc yteson 08-30-2021 Lymphocytes/100 WBC (Bld) 41.1 % 19-41 [facility] Work Phone: Blood monocytes/100 leukocyt eson 08-30-2021 Monocytes/100 WBC (Bld) 10.9 % 0-10 [facility] Work Phone: Blood platelet mean volumeon 08-30-2021 Platelet mean volume (Bld) [Entitic vol] 10.3 fL 6.2-12.0 [facility] Work Phone: Determination of erythrocyte mean corpuscular volume (MCV)on 08-30-2021 MCV (RBC) [Entitic vol] 98.1 fL 81-99 [facility] Work Phone: Hematocrit Auto (Bld) [Volum e fraction]on 08-30-2021 Hematocrit (Bld) [Volume fraction] 36.4 % 37-47 [facility] Work Phone: Laboratory - Chemistry and C hemistry - challengeon 08-30-2021 ALP [Catalytic activity/Vol] 66 U/L 45-117 [facility] Work Phone: ALT [Catalytic activity/Vol] 20 U/L 13-56 [facility] Work Phone: CO2 [Moles/Vol] 29.0 mmol/L 21.0-32.0 [facility] Work Phone: Globulin (S) [Mass/Vol] 3.4 g/dL 2.2-4.2 [facility] Work Phone: Urea nitrogen/Creatinine [Mass ratio] 22.6 mg/mg 10-20 [facility] Work Phone: Laboratory - Hematology and Cell countson 08-30-2021 Erythrocyte distribution width (RBC) [Entitic vol] 49.0 fL 35.1-43.9 [facility] Work Phone: Erythrocyte distribution width (RBC) [Ratio] 13.5 % 11.6-14.6 [facility] Work Phone: Immature granulocytes/100 WBC (Bld) 0.200 % 0.0-0.9 [facility] Work Phone: Comment on above: IG% - Immature Granu locytes (promyelocytes, myelocytes and metamyelocytes) > 1% indicates that a LEFT SHIFT is Present. MCH (RBC) [Entitic mass] 31.5 pg 27.0-32.0 [facility] Work Phone: Nucleated RBC/100 WBC (Bld) [Ratio] 0 % 0-5 [facility] Work Phone: MCHC Auto (RBC) [Mass/Vol]on 08-30-2021 MCHC (RBC) [Mass/Vol] 32.1 g/dL 32-36 [facility] Work Phone: No Panel Informationon 08-30 Estimated GFR (MDRD) Amer 49 mL/min >60 [facility] Work Phone: Comment on above: GFR Calc Estimated GFR (MDRD) Non-Af Amer 41 mL/min >60 [facility] Work Phone: Comment on above: Non- GFR Calc Thyroid Stimulating Hormone (TSH) 2.19 uIU/mL 0.358-3.74 [facility] Work Phone: Vitamin D 25-Hydroxy 44.4 ng/mL [facility] Work Phone: Comment on above: Vitamin D 25(OH) Sta tus Range Deficiency <20 ng/mL (50nmol/L) Insufficiency 20 - 30 ng/mL (50 - 75 nmol/L) Sufficiency 30 - 100 ng/mL (75 - 250 nmol/L) Toxicity >100 ng/mL (>250 nmol/L) Platelets bldon 08-30-2021 Platelets (Bld) [#/Vol] 240 10*3/uL 150-450 [facility] Work Phone: Serum or plasma albumin nelida urement (mass/volume)on 08-30-2021 Albumin [Mass/Vol] 3.5 g/dL 3.2-5.[address] [facility] Work Phone: Serum or plasma albumin/glob ulin mass ratioon 08-30-2021 Albumin/Globulin [Mass ratio] 1.0 {ratio} 0.9-2.4 [facility] Work Phone: Serum or plasma calcium nelida urement (mass/volume)on 08-30-2021 Calcium [Mass/Vol] 9.2 mg/dL 8.5-10.[address] [facility] Work Phone: Serum or plasma creatinine m easurement (mass/volume)on 08-30-2021 Creatinine [Mass/Vol] 1.37 mg/dL 0.55-1.02 [facility] Work Phone: Comment on above: The validity of the calculated GFR & GFRAA in patients over 70 years has not been determined. Clinical correlation is essential. Serum or plasma urea nitroge n measurement (mass/volume)on 08-30-2021 Urea nitrogen [Mass/Vol] 31 mg/dL 7-18 [facility] Work Phone: Thin prep Papanicolaou smear with manual screeningon 08-30-2021 Thin prep Papanicolaou smear with manual screening 17 U/L 15-37 [facility] Work Phone: Thin prep Papanicolaou smear with manual screening 6 5-15 [facility] Work Phone: Clinical Summary: HMSPatient IDon 04-10-2019 SOP [facility] Work Phone: Clinical Summary: Scanned Hi story Summaryon 04-10-2019 adl form etoh alcohol performance Wine [facility] Work Phone: Cholesterol [Mass/Vol] High blood pressureDiabetes - non-insulin dependentHigh cholesterol [facility] Work Phone: consumes three or more drinks of alcohol (beer, wine, liquor) daily or almost daily less than 1 drink per day [facility] Work Phone: data entered by patient, alcohol (ethanol or ETOH) use Yes [facility] Work Phone: data entered by patient, drug (of abuse) use No [facility] Work Phone: data entered by patient, Employer Name Retired [facility] Work Phone: data entered by patient, exercise history No [facility] Work Phone: data entered by patient, father's medical history High blood pressureKidney diseaseStroke/TIA [facility] Work Phone: Data entered by patient, history of past surgeries Hysterectomy [facility] Work Phone: data entered by patient, mother's medical history OsteoporosisCOPDHigh blood pressure [facility] Work Phone: Data entered by patient, problem list Patient Denies Medical Problems or Conditions [facility] Work Phone: data entered by patient, social history, current smoker never smoker [facility] Work Phone: data entered by patient, social history, marital status [facility] Work Phone: father of patient is alive or [facility] Work Phone: Housing Type: apartment, [place], [place] [facility], trailer, none House [facility] Work Phone: housing unit size (asthma environmental history, housing) (from single family to don't know) 3+ Floors [facility] Work Phone: medical history of patient's brother(s) ArthritisHigh blood pressure [facility] Work Phone: medical history of patient's sister High blood pressure [facility] Work Phone: mother of patient is alive or Alive [facility] Work Phone: Number of dependent children Yes [facility] Work Phone: Office Visit: New - 1st visi t with practice, Rm:on 04-10-2019 NEGATED: Highlighted rowTobacco smoking status NHIS Tobacco smoking status NHIS [facility] Work Phone: Vital Signs Date Time Vital Sign Value Performing Clinician Facility 11-19-2024 14:52-0400 Body height 172.[address] Marquis Singh MD Work Phone: [facility] 11-19-2024 14:52-0400 Body mass index (BMI) [Ratio] 28.8 kg/m2 Dr. Marquis Singh MD Work Phone: [facility] 11-19-2024 14:52-0400 Body weight 86.[address] Marquis Singh MD Work Phone: [facility] 11-19-2024 14:52-0400 Diastolic blood pressure 67 mm[Hg] Dr. Marquis Singh MD Work Phone: [facility] 11-19-2024 14:52-0400 Heart rate 77 /min Dr. Marquis Singh MD Work Phone: [facility] 11-19-2024 14:52-0400 Respiratory rate 16 /min Dr. Marquis Singh MD Work Phone: [facility] 11-19-2024 14:52-0400 Systolic blood pressure 106 mm[Hg] Dr. Marquis Singh MD Work Phone: [facility] NEGATED: Highlighted [id number] 14:23-0500 BMI (Body Mass Index) 24.42 kg/m2 Estefany Marsi DAIRY NUTRITIONIST [facility] Work Phone: NEGATED: Highlighted [id number] 14:23-0500 Body weight 72.58 kg Estefany Schaeferbbins DAIRY NUTRITIONIST [facility] Work Phone: NEGATED: Highlighted [id number] 14:23-0500 Body weight 73 kg Estefany Schaeferbbins DAIRY NUTRITIONIST [facility] Work Phone: NEGATED: Highlighted [id number] 14:23-0500 BP Diastolic 76 mm[Hg] Estefany Schaeferbbins DAIRY NUTRITIONIST [facility] Work Phone: NEGATED: Highlighted [id number] 14:23-0500 BP Systolic 128 mm[Hg] Estefany Schaeferraimundo KEMP [facility] Work Phone: NEGATED: Highlighted [id number] 14:23-0500 Height 172.72 cm Estefany Schaeferbbins DAIRY NUTRITIONIST [facility] Work Phone: NEGATED: Highlighted [id number] 14:23-0500 Height 173 cm Estefany Schaeferraimundo KEMP [facility] Work Phone: NEGATED: Highlighted [id number] 14:23-0500 Pulse (Heart Rate) 67 /min Estefany Schaeferraimundo KEMP [facility] Work Phone: Encounters Encounter Date Encounter Type Care Provider Facility Start: 12-17-2024 ambulatory Abdirahman Andrews Facility:[facility] Start: 12-11-20[facility] Start: 11-19-2024 End: 11-19-[address] Abdirahman Andrews MD -[facility] Work Phone: Start: 11-19-2024 End: 11-19-[address] Marquis Singh MD Work Phone: -[facility] Start: 10-07-2024 Non-patient / Non-visit Dr. Madison BUENROSTRO -[facility] Work Phone: Start: 10-07-2024 End: 10-07-[address] Marquis Singh MD Work Phone: -Pulmonary Services/Neurology Start: 10-07-2024 End: 10-07-[address] Marquis Singh MD -Pulmonary Services/Neurology Work Phone: Start: 10-06-2024 End: 10-07-[address] Marquis Singh MD Work Phone: -Outpatient Breast Imaging Start: 10-06-2024 End: 10-06-[address] Marquis Singh MD -Outpatient [facility] Work Phone: Start: 10-06-2024 End: 10-06-2024 ambulatory Marquis Singh Facility:[facility] Start: 09-15-2024 End: 09-15-[address] Marquis Singh MD Work Phone: -Laboratory Start: 09-15-2024 End: 09-15-[address] Marquis Singh MD -Laboratory Work Phone: Start: 09-15-2024 End: 09-15-2024 ambulatory [facility] Facility:[facility] Start: 09-11-2024 End: 09-11-[address] Marquis Singh MD Work Phone: -Laboratory Phy Office 3rd Flr Start: 09-11-2024 End: 09-11-[address] Marquis Singh MD -Laboratory Phy Office 3rd Flr Start: 09-11-2024 End: 09-11-2024 ambulatory [facility] Facility:[facility] Start: 03-13-2024 End: 03-13-2024 ambulatory [facility] Facility:[facility] Start: 03-08-2023 End: 03-08-2023 ambulatory [facility] Work Phone: Start: 03-08-2023 End: 03-08-2023 Patient encounter procedure [facility]-Laboratory, Phy Office 3rd Flr Start: 09-20-2022 End: 09-20-2022 ambulatory [facility] Work Phone: Start: 09-20-2022 End: 09-20-2022 Patient encounter procedure [facility]-MRI - [facility] Work Phone: Start: 09-20-2022 End: 09-20-2022 ambulatory [facility] Work Phone: Start: 09-20-2022 End: 09-20-2022 Patient encounter procedure [facility]-Outpatient Breast Imaging Work Phone: Start: 09-04-2022 End: 09-04-2022 ambulatory [facility] Work Phone: Start: 09-04-2022 End: 09-04-2022 Patient encounter procedure [facility]-Laboratory, Phy Office 3rd Flr Start: 08-23-2022 End: 08-23-2022 ambulatory [facility] Work Phone: Start: 08-23-2022 End: 08-23-2022 Patient encounter procedure [facility]-Radiology, [facility] Work Phone: Start: 03-08-2022 End: 03-08-2022 ambulatory [facility] Work Phone: Start: 03-08-2022 End: 03-08-2022 Patient encounter procedure [facility]-Laboratory, Phy Office 3rd Flr Start: 12-30-2021 End: 12-30-2021 ambulatory [facility] Work Phone: Start: 12-30-2021 End: 12-30-2021 Patient encounter procedure [facility]-Laboratory Start: 11-24-2021 End: 11-24-2021 ambulatory [facility] Work Phone: Start: 11-24-2021 End: 11-24-2021 Patient encounter procedure [facility]-Laboratory, Specimen Start: 09-06-2021 End: 09-06-2021 [facility] Start: 08-30-2021 End: 08-30-2021 Patient encounter procedure [facility]-Laboratory, Phy Office 3rd Flr Start: 04-10-2019 End: 04-10-2019 Patient encounter procedure Dirk Rivero MD Work Phone: [facility] Work Phone: Procedures Date Procedure Procedure Detail Performing Clinician Start: 10-06-2024 Screening mammography Adi Singh MD Work Phone: Start: 09-11-2024 Plain X-ray of shoulder Dr. Marquis Singh MD Work Phone: Start: 09-11-2024 X-ray of cervical spine Dr. Marquis Singh MD Work Phone: Start: 09-11-2024 Vitamin D, 25-hydrox y measurement Dr. Marquis Singh MD Work Phone: Comment on above: Vitamin D StatusDefi ciency: <20 ng/mL (50nmol/L)Insufficiency: 20-30 ng/mL (50-75 nmol/L)Sufficiency: 30-100 ng/mL (75-250 nmol/L)Toxicity: >100 ng/mL (>250 nmol/L) Start: 09-20-2022 Screening mammography Start: 09-20-2022 MRI [...] Treatment Date Care Activity Detail Author Start: 11-19-2024 End: 11-19-2024 Evaluation of diagnostic study results [facility] Start: 11-19-2024 CT angiography of coronary arteries [facility] Start: 09-20-2022 Screening digital breast tomosynthesis bi BREAST TOMOSYNTHESIS BI [facility] Start: 09-20-2022 Screening mammography bi 2-view breast inc cad SCR MAMMO BI INCL CAD [facility] Start: 04-10-2019 End: 04-10-2019 Appointment Appointment [facility] Work Phone: Start: 04-10-2019 End: 04-10-2019 Radex hand minimum 3 views [facility] Work Phone: NM Heart Views W str ess and W radionuclide IV [facility] Patient Education [facility] Work Phone: [facility] Payers Date Payer Category Payer Unknown [id number] 2024 Unknown [id number] 2024 Medicare [id number] 2024 Self-pay [id number] 2015 Medicaid [id number] 2015 Unknown [id number] 2011 Unknown [id number] Private Health Insurance [id number] Unknown [id number] Unknown [id number] 2.16.8 [id number] Unknown [id number] 2.16.8 [id number] Unknown [id number] 2.16.8 [id number] Unknown [id number] 2.16.8 [id number] Unknown [id number] 2.16.8 [id number] Unknown [id number] 2.16.8 [id number] Unknown [id number] 2.16.8 [id number] Unknown [id number] 2.16.8 [id number] Unknown [id number] 2.16.8 [id number] Social History Date Type Detail Facility Start: 04-17-2021 End: 04-17-2021 Tobacco smoking status NHIS Unknown if ever smoked [facility] Start: 1955 Sex Assigned At Female [facility] Start: 04-17-2021 End: 09-18-2024 Tobacco smoking status NHIS Never smoked tobacco (finding) [facility] Sex Female [facility] NEGATED: Highlighted rowStart: 04-10-2019 End: 04-10-2019 Alcohol use Alcohol use [facility] Work Phone: NEGATED: Highlighted rowStart: 04-10-2019 End: 04-10-2019 Details of drug misuse behavior Details of drug misuse behavior [facility] Work Phone: NEGATED: Highlighted rowStart: 04-10-2019 End: 04-10-2019 Assertion Never smoker [facility] Work Phone: Progress note 11-19-2024 Note Date & Type Note Facility 11-19-2024 Progress note [facility] Progress note 11-19-2024 Note Date & Type Note Facility 11-19-2024 Progress note Note Date/Time November 19, 2024 3:27pm [facility] [address] [place] [address] OFFICE VISIT Date of Service: 11/19/24 MR#: [id number] Acct: [id number] Name: JEYSON DAVE Rep #: [id number] : 1955 Provider: Dr. Dixon Andrews MD Age/Sex: 68/F Location: [facility] [place] Status: Signed HPI HPI History of Present Illness Details: Pleasant 68-year-old lady with a history of hypertension diabetes mellitus hyperlipidemia who has been complaining of shortness of breath with activity recently as well as occasional chest fluttering. She has not seen a transit man in the past she did have an echocardiogram performed 10 years ago demonstrating an ejection fraction of 65% with mild tricuspid regurgitation. She has not had any chest pain per se and no pedal edema she has been compliant with her medications. Her physical exam demonstrates clear lung tiwari regular rate and rhythm no pedal edema electrocardiogram demonstrates sinus rhythm with a rate of 73 bpm and no acute changes. 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 Operator Required: No Accompanied by: Self Is patient in pain?: No Allergies No Known Allergies Allergy (Verified 11/19/24 14:56) Medications ?Medication ?Instructions ?Recorded ?Confirmed ?Type atorvastatin 40 mg tablet 40 mg PO QDAY #30 tabs 09/1811/19/24 History cholecalciferol (vitamin D3) 25 PO 09/18/24 11/19/24 H istory mcg (1,000 unit) tablet (Vitamin D3) dapagliflozin propanediol 10 mg 10 mg PO QDAY 09/18/24 11/19/24 History tablet (Farxiga) metoprolol tartrate 25 mg tablet 25 mg PO BID #30 tabs 09/18/24 11/19/24 History olmesartan 40 1 tab PO QDAY 09/18/2411/19 History mg-hydrochlorothiazide 12.5 mg tablet pioglitazone 15 mg tablet (Actos) 15 mg PO QDAY 11/19/24 History Have you fallen in the past year?: No PFSH Medical History Vitamin D deficiency Hyperlipidemia Left inguinal hernia GERD (gastroesophageal reflux disease) Bilateral renal cysts Stage 3b chronic kidney disease (CKD) Chest pain Diabetes HTN (hypertension) Surgical History Hx of hysterectomy for benign disease Family History Father Afib Other CVA (cerebral vascular accident) Social History Smoking Status: Never smoker alcohol intake: never substance use type: does not use ROS Const Const: Negative for fatigue, weakness, daytime sleepiness or difficulty sleeping ENT ENT: Negative for dizziness or Nosebleed/epistaxis Cardio Chest Pain: No Palpitations: Yes (fluttering ) Edema: None Resp Respiratory: Positive for SOB with activity; Negative for SOB at rest, SOB orthopnea\SOB lying down or Cough GI GI: Negative nausea, vomiting or heartburn Neuro Neuro: Negative for dizziness, lightheadedness, near syncope or weakness Endo Endo: Negative for fatigue Cardiology Exam Const Appearance: cooperative, healthy appearing, no acute distress, well developed and well groomed Nutritional Appearance: average body habitus and well nourished Orientation: alert, awake and oriented x3 Head Head: normal to inspection, normocephalic and atraumatic Ears: hearing grossly normal bilaterally and external ears normal Nose: external nose normal, nares normal, nasal mucous membranes and turbinates normal, septum normal and no nasal discharge Face and Sinus: face symmetric Mouth: oral mucosae normal, tongue normal, oropharynx normal and moist mucous membranes Teeth and gingiva: dentition normal Throat: posterior oropharynx normal, tonsils normal and uvula midline Eyes General: appearance normal, both eyes and all related structures Eyelids: eyelids normal Conjunctivae: conjunctivae normal Pupils: PERRL, normal by confrontation and accommodation normal EOM: EOM intact bilaterally Neck Neck: normal visual inspection, trachea midline and no JVD JVD: +5 Carotids: normal carotid upstroke and bounding pulses Chest Chest inspection: normal inspection of the chest, symmetric chest movement and normal respiratory effort Auscultation: Bilateral: Clear to Auscultation Cardio Palpation: normal PMI Rate: regular rate Rhythm: regular rhythm Heart sounds: S1 normal, S2 normal and normal, physiologic split S2; Negative rub, gallop or murmur GI GI: normal to inspection, soft, no hepatosplenomegaly and bowel sounds present Neuro General: patient alert, patient awake, patient oriented x3, gait normal, moves all extremities and no focal sensory deficit Skin Skin: no rashes or lesions noted Extremities Pulses: Normal: Right Femoral Pulse, Left Femoral Pulse, Right Dorsalis Pedis Pulse, Left Dorsalis Pedis Pulse, Right Posterior Tibial Pulse, Left Posterior Tibial Pulse, Right Radial Pulse and Left Radial Pulse Lower Extremity Edema: None: Bilateral Musculoskel Musculoskeletal: No joint tenderness Psych Psychological: normal affect Supplemental Info Supplemental Information Echocardiogram 04/20/14 Interpretation Summary Normal LV size. Left ventricular systolic function is normal. The estimated ejection fraction is 65 %. Mild (1+) tricuspid valve insufficiency. Pulmonary artery systolic pressure is 30 mmHg. Labs: LDL Cholesterol, (0-130) 89 mg/dL HDL Cholesterol, (40-) 53 mg/dL Cholesterol, (<=200) 181 mg/dL Triglycerides, (-199) 161 mg/dL Diagnostics: Electrocardiogram Echocardiogram Abdomen/Pelvis CT Venous Doppler Study Past Visits: Cardiology Visit Today Assessment and Plan Assessment and Plan (1) HTN (hypertension): Status: Chronic Plan: She does have a history hypertension her blood pressure is under excellent control on the current medical therapy I would not recommend that we make any changes. It will be prudent to obtain echocardiogram to look at her ventricularfunction and her wall thickness. (2) Hyperlipidemia: Status: Acute Plan: She does have a history of hyperlipidemia which is well-controlled on the current medical therapy. Her last lipid profile demonstrates total cholesterol 181, HDL of 53 and LDL of 96. No changes were made to respect to the above. It may also be prudent to obtain a coronary calcium score for restratification in this case. (3) SOB (shortness of breath) on exertion: Status: Acute Plan: She does have shortness of breath with exertion. My recommendation is to obtainsome form of stress testing. She unfortunately does have a limp and so an exercise myocardial perfusion stress test is not possible so we will perform an pharmacologic myocardial perfusion stress test in conjunction with the echocardiogram. Depending on the findings further recommendations will be made. Orders: Orders 12 Lead EKG performed by [facility] Today E78.5 - Hyperlipidemia, unspecified, I10 - Essential (primary) hypertension, R07.9 - Chest pain, unspecified Echo Complete Today R06.02 - Shortness of breath Nuclear Stress Test - Chemical Today E78.5 - Hyperlipidemia, unspecified, I10 -Essential (primary) hypertension, R06.02 - Shortness of breath Cardiac Calcium Scoring Today R06.02 - Shortness of breath Plan Details Follow Up: 6 Months (kr) Coding Level of Care Code Off vis,new,level 4 Diagnoses HTN (hypertension) I10 Hyperlipidemia E78.5 SOB (shortness of breath) on exertion R06.02 Coding Level of Care Code Off vis,new,level 4 Diagnoses HTN (hypertension) I10 Hyperlipidemia E78.5 SOB (shortness of breath) on exertion R06.02 Clinical Quality Measures Falls Risk Screening/Assistive Devices Have you fallen in the past year?: No 11/19/24 1535 <Electronically signed by Abdirahman Joshi> Date _ Abdirahman Andrews MD Cosigner Signature: Date (if applicable) CC: Dr. Marquis Singh MD ~ [facility] Work Phone: Radiology Diagnostic study note 09-13-2024 Note Date & Type Note Facility 09-13-2024 Radiology Diagnostic study note [facility] Imaging Services [address] [place], [place] [id number] Cerv Spine 2 or 3 Views MR#: [id number] Acct: [id number] Name: JEYSON DAVE Rep #: [id number] : 1955 F 68 From: Maru Francisco MD PCP: Dr. Marquis Singh MD Status: SHANTHI HANSON Study:Cerv Spine 2 or 3 Views Date of Exam: 09/11/24 Exam# [id number] Ordering Dr: Marquis Singh MD EXAM: XR [...] the cervical spine as described. Reading Location: [facility] CC: Dr. Marquis Singh MD ~ [employer]: Signed [facility] Radiology Diagnostic study note 09-13-2024 Note Date & Type Note Facility 09-13-2024 Radiology Diagnostic study note [facility] Imaging Services [address] [place] [address] [id number] Shoulder min 2 Views MR#: [id number] Acct: [id number] Name: JEYSON DAVE Rep #: [id number] : 1955 F 68 From: Maru Francisco MD PCP: Dr. Marquis Singh MD Status: REG C VALENTIN Study:Shoulder min 2 Views Date of Exam: 09/11/24 Exam# [id number] Ordering Dr: Marquis Singh MD EXAM: XR [...] IMPRESSION: Degenerative changes as above. Reading Location: [facility] CC: Dr. Marquis Singh MD ~ [employer] [place]: Signed [facility] Evaluation note Note Date & Type Note Facility Evaluation note No assessment information availa ble [facility] Work Phone: Evaluation note Note Date & Type Note Facility Evaluation note Diagnosis Onset Date Resolution Hyperlipidemia acute November 2:24pm SOB (shortness of breath) on exertion acute November 19, 2024 2:24pm HTN (hypertension) chronic Octobe r 2024 2:24pm [facility] Work Phone: Reason for referral (narrative) Note Date & Type Note Facility Reason for referral (narrative) No reason for referral information available [facility] Work Phone: Chief Complaint Chief Complaint Description Start Date bilateral hand pain Preliminary chief co mplaint data, not yet signed by the author as of Instructions Instruction Description Start Date Completed Advance Directives No Advanced Directives Records Found Advance Directive Response Recorded Date/ Time Living Will No April 17, 2 022 3:01pm Power of Men[employer] No April 17, 2021 3:01pm Advance Directive Response Recorded Date/ Time Living Will No April 17, 2 022 2:01pm Power of Men[employer] Golf [employer] No April 17, 2021 2:01pm Assessments There may be information available, but it has not been provided by the sender. Review of System There may be information available, but it has not been provided by the sender. Family History No Family History Records Found Relationship Condition Age at Onset Recorded Date/T kristen Not Specified Cerebrovascular accident (CVA) Unknown Relationship Condition Age at Onset Recorded Date/T kristen Not Specified Cerebrovascular accident (CVA) Unknown father Atrial fibrillation Unknown History of Present Illness There may be information available, but it has not been provided by the sender. Chief Complaint and Reason for Visit Chief Complaint DUE ON OR AROUND 09/09 PER ORDER Chief Complaint LOW BACK PAIN Chief Complaint LOW BACK PAIN SCREENING Chief Complaint LOW BACK PAIN SCREENING LUMBAR RADICULAPATHY Chief Complaint Admit Date SCREENING October 06, 2024 12 :16pm CP October 07, 2024 9: 19am Chief Complaint Admit Date SCREENING October 06, 2024 12 :16pm CP October 07, 2024 9: 19am CP October 07, 2024 9: 37am CP (ROGER) November 19, 2024 2: 24pm Reason for Visit Admit Date Hyperlipidemia November 19, 2024 2: 24pm SOB (shortness of breath) on exertion Oc tober 5 2:24pm HTN (hypertension) November 19, 2024 2: 24pm Summary Purpose Additional Source Comments Reason for [...] Jack DO Attending Provider Active Team Status: Active Member Role/Relationship Status Dates Dr. Marquis Singh MD Primary Care Provider Active Team Status: Inactive Member Role/Relationship Status Dates Dr. Marquis Singh MD Primary Care Provider Active Start: September 11, 2024 End: September 11, 2024 Dr. Marquis Singh MD Attending Provider Active Start: September 11, 2024 End: September 11, 2024 Team Status: Active Member Role/Relationship Status Dates Dr. Marquis Singh MD Primary Care Provider Active Start: September 15, 2024 Dr. Marquis Singh MD Attending Provider Active Start: September 15, 2024 Team Status: Inactive Member Role/Relationship Status Dates Dr. Marquis Singh MD Primary Care Provider Active Start: September 15, 2024 End: September 15, 2024 Dr. Marquis Singh MD Attending Provider Active Start: September 15, 2024 End: September 15, 2024 Team Status: Inactive Member Role/Relationship Status Dates Dr. Marquis Singh MD Primary Care Provider Active Start: October 06, 2024 End: October 06, 2024 Dr. Marquis Singh MD Attending Provider Active Start: October 06, 2024 End: October 06, 2024 Dr. Marquis Singh MD Referring Provider Active Start: October 06, 2024 End: October 06, 2024 Team Status: Active Member Role/Relationship Status Dates Dr. Marquis Singh MD Primary Care Provider Active Start: October 07, 2024 Dr. Marquis Singh MD Attending Provider Active Start: October 07, 2024 Dr. Marquis Singh MD Referring Provider Active Start: October 07, 2024 Team Status: Inactive Member Role/Relationship Status Dates Dr. Marquis Singh MD Primary Care Provider Active Start: October 07, 2024 End: October 07, 2024 Dr. Marquis Singh MD Attending Provider Active Start: October 07, 2024 End: October 07, 2024 Dr. Marquis Singh MD Referring Provider Active Start: October 07, 2024 End: October 07, 2024 Team Status: Active Member Role/Relationship Status Dates Dr. Marquis Singh MD Primary care physician Active Team Status: Inactive Member Role/Relationship Status Dates Dr. Marquis Singh MD Primary care physician Active Start: September 11, 2024 End: September 11, 2024 Dr. Marquis Singh MD Attending physician Active Start: September 11, 2024 End: September 11, 2024 Team Status: Inactive Member Role/Relationship Status Dates Dr. Marquis Singh MD Primary care physician Active Start: September 15, 2024 End: September 15, 2024 Dr. Marquis Singh MD Attending physician Active Start: September 15, 2024 End: September 15, 2024 Team Status: Inactive Member Role/Relationship Status Dates Dr. Marquis Singh MD Primary care physician Active Start: October 06, 2024 End: October 06, 2024 Dr. Marquis Singh MD Attending physician Active Start: October 06, 2024 End: October 06, 2024 Dr. Marquis Singh MD Referring Provider Active Start: October 06, 2024 End: October 06, 2024 Team Status: Inactive Member Role/Relationship Status Dates Dr. Marquis Singh MD Primary care physician Active Start: October 07, 2024 End: October 07, 2024 Dr. Marquis Singh MD Attending physician Active Start: October 07, 2024 End: October 07, 2024 Dr. Marquis Singh MD Referring Provider Active Start: October 07, 2024 End: October 07, 2024 Team Status: Active Member Role/Relationship Status Dates Dr. Marquis Singh MD Primary care physician Active Start: October 07, 2024 Dr. Marquis Singh MD Referring Provider Active Start: October 07, 2024 Dr. Abdirahman Andrews MD Attending physician Active Start: October 07, 2024 Team Status: Inactive Member Role/Relationship Status Dates Dr. aMrquis Singh MD Primary care physician Active Start: November 19, 2024 End: November 19, 2024 Dr. Marquis Singh MD Referring Provider Active Start: November 19, 2024 End: November 19, 2024 Dr. Abdirahman Andrews MD Attending physician Active Start: November 19, 2024 End: November 19, 2024 INFORMATION SOURCE (unrecogn ized section and content) DATE CREATED AUTHOR 12/09/2024 [facility] FOR RECORDS PERTAINING TO PATIENTS WHO ARE [...] BE BASED ON THE PRIMARY CLINICAL RECORDS. [employer]. provides no warranty or guarantee of the accuracy or completeness of information in this document.
== END | disposition home or self-care (01) ==
LOC: POLAB3 13:52
PROVIDERS: PCP Family Medicine Geriatric Medicine; Visit Provider Family Medicine Geriatric Medicine
DX: N39.0 Urinary tract infection, site not specified (principal)
CPT/HCPCS: 81001; 87086; 87088

== ENCOUNTER → 2024-12-17 | Outpatient (CLI) | payer MEDICARE, MEDICAID, SELFPAY ==
--- NOTE | 2024-12-17 09:34 | ECHOCS_ITS ---
Reason For Study ECHO/Echo Complete W/ Contrast
== END | disposition home or self-care (01) ==
LOC: CVS 09:34
PROVIDERS: PCP Family Medicine Geriatric Medicine; Referring Provider Internal Medicine Cardiovascular Disease; Visit Provider Internal Medicine Cardiovascular Disease
DX: R06.02 Shortness of breath (principal)
CPT/HCPCS: 93306; Q9957; A4216; C8929